=== PATIENT | male | born 1960 | race Caucasian/White ===

== ENCOUNTER 2017-08-03 08:35 | Day surgery (SDC) | payer MEDICAID ==
[~2017-08-03] VITALS: Ht 170.2 cm; Wt 65.0 kg
[~2017-08-03 08:35] MED LIST: ALB0.5UD IH; BISA-155 PO; DOCU100C40 PO; DULO-31 PO; GABA-532 PO; HYDR-3972 PO; HYDR50TA65 PO; INSU100V5 SQ; LIDO700A32 TOP; METF850T2 PO; METO-292 PO; MORP-64 PO; NYST15PO4 TP; OMEP-50 PO; SENN-93 PO; SPIIN INH; TEST200V10 SUBCUT; TIZA-248 PO; TRAZ-146 PO
[2017-08-03] MEDS ORDERED: MIDAZolam 5mg/5ml vial ONE (08:44)
[2017-08-03] MEDS ORDERED: fentaNYL/PF 50MCG/1 ML 2ML syringe ONE (08:44)
[2017-08-03] MEDS ORDERED: LIDOcaine Viscous 15ml cup ONE (08:45)
[2017-08-03 09:25] VITALS: BP 133/75
[2017-08-03 10:26] VITALS: BP 105/67
[2017-08-03 10:36] VITALS: BP 113/73
[2017-08-03 10:46] VITALS: BP 99/59
[2017-08-03 10:56] VITALS: BP 110/72
== END 2017-08-03 11:10 | disposition home or self-care (01) ==
LOC: GI LAB 08:35
PROVIDERS: ATTEND Internal Medicine Gastroenterology
DX: K22.70 Barrett's esophagus without dysplasia (principal); K44.9 Diaphragmatic hernia without obstruction or gangrene; K22.2 Esophageal obstruction; J44.9 Chronic obstructive pulmonary disease, unspecified; K21.9 Gastro-esophageal reflux disease without esophagitis; M19.90 Unspecified osteoarthritis, unspecified site; E11.9 Type 2 diabetes mellitus without complications; F32.9 Major depressive disorder, single episode, unspecified; G80.8 Other cerebral palsy; Z86.14 Personal history of Methicillin resistant Staphylococcus aureus infection; Z79.891 Long term (current) use of opiate analgesic; Z88.1 Allergy status to other antibiotic agents; Z87.891 Personal history of nicotine dependence; Z79.84 Long term (current) use of oral hypoglycemic drugs; Z90.49 Acquired absence of other specified parts of digestive tract; Z90.89 Acquired absence of other organs; Z79.899 Other long term (current) drug therapy; Z88.8 Allergy status to other drugs, medicaments and biological substances; Z98.890 Other specified postprocedural states
CPT/HCPCS: 43239; 43248; 99152; J2250; J3010; J7030; A4620; G0500

== ENCOUNTER 2017-12-22 06:31 | Day surgery (SDC) | payer MEDICAID ==
[~2017-12-22] VITALS: Ht 171.4 cm; Wt 61.8 kg
[~2017-12-22 06:31] MED LIST changes: +METF-437 PO; -METF850T2 PO; -TRAZ-146 PO; +TRAZ-219 PO
[2017-12-22] MEDS ORDERED: fentaNYL/PF 50MCG/1 ML 2ML syringe ONE (06:44)
[2017-12-22] MEDS ORDERED: MIDAZolam 5mg/5ml vial ONE (06:44)
[2017-12-22 06:45] VITALS: BP 121/84
[2017-12-22 08:52] VITALS: BP 130/68
[2017-12-22 09:02] VITALS: BP 126/85
[2017-12-22 09:12] VITALS: BP 123/68
[2017-12-22 09:22] VITALS: BP 113/59
[2017-12-22 09:32] VITALS: BP 121/60
== END 2017-12-22 09:50 | disposition home or self-care (01) ==
LOC: GI LAB 06:31
PROVIDERS: ATTEND Internal Medicine Gastroenterology
DX: D50.9 Iron deficiency anemia, unspecified (principal); G80.8 Other cerebral palsy; J44.9 Chronic obstructive pulmonary disease, unspecified; K21.9 Gastro-esophageal reflux disease without esophagitis; M19.90 Unspecified osteoarthritis, unspecified site; E11.9 Type 2 diabetes mellitus without complications; F10.21 Alcohol dependence, in remission; F32.9 Major depressive disorder, single episode, unspecified; F12.90 Cannabis use, unspecified, uncomplicated; I25.10 Atherosclerotic heart disease of native coronary artery without angina pectoris; F41.8 Other specified anxiety disorders; Z99.3 Dependence on wheelchair; Z87.891 Personal history of nicotine dependence; Z88.1 Allergy status to other antibiotic agents; Z90.49 Acquired absence of other specified parts of digestive tract; Z87.440 Personal history of urinary (tract) infections; Z87.442 Personal history of urinary calculi; Z99.81 Dependence on supplemental oxygen; Z79.4 Long term (current) use of insulin; Z79.84 Long term (current) use of oral hypoglycemic drugs; Z79.891 Long term (current) use of opiate analgesic; Z90.89 Acquired absence of other organs; Z86.14 Personal history of Methicillin resistant Staphylococcus aureus infection; Z79.899 Other long term (current) drug therapy; Z98.890 Other specified postprocedural states; Z88.8 Allergy status to other drugs, medicaments and biological substances; Z80.9 Family history of malignant neoplasm, unspecified; Z83.3 Family history of diabetes mellitus
CPT/HCPCS: 45378; 99152; 99153; J2250; J3010; J7030; A4620; G0500

== ENCOUNTER 2018-05-28 22:14 | Emergency (ER) | payer MEDICAID ==
[~2018-05-28] VITALS: Ht 170.2 cm; Wt 50.4 kg
[~2018-05-28 22:14] MED LIST changes: -ALB0.5UD IH; -METO-292 PO
[2018-05-29] MEDS ORDERED: ondansetron/PF 4mg/2ml inj IV ONE (00:45)
[2018-05-29] MEDS ORDERED: morphine 4 MG/ML inj SYRINge IV ONE ×2 (00:45→02:00)
[2018-05-29] MEDS ORDERED: normal saline 1000ml 1,000 ML IV ONE (00:45)
[2018-05-29 00:56] LABS: CLARITY,URINE CLEAR (Clear); COLOR,URINE YELLOW (Yellow); GLUCOSE, URINE 250 mg/dl (Neg); KETONES,URINE NEGATIVE (Neg); LEUKOCYTE ESTERASE ,URINE NEGATIVE (Neg); NITRITES, URINE NEGATIVE (Neg); OCCULT BLOOD,URINE NEGATIVE (Neg); PH,URINE 5.5 (4.8-8.0); PROTEIN,URINE NEGATIVE (Neg); UA COLLECTION TYPE VOIDED; UROBILINOGEN,URINE 0.2 E.U/dL (0.2-1.0)
[2018-05-29 01:39] VITALS: BP 128/92
[2018-05-29 01:42] LABS: BASOPHILS # (AUTO) 0.1 X10'3 (0-0.2); BASOPHILS % (AUTO) 0.8 % (0-1); EOSINOPHILS # (AUTO) 0.3 X10'3 (0-0.9); EOSINOPHILS % (AUTO) 3.7 % (0-6); HEMATOCRIT 49.5 % (42.0-52.0); HEMOGLOBIN 16.3 g/dl (14.0-17.9); LYMPHOCYTES # (AUTO) 1.4 X10'3 (1.1-4.8); LYMPHOCYTES % (AUTO) 17.1 % (21-51); MEAN CORPUSCULAR HEMOGLOBIN 31.3 PG (27.0-31.0); MEAN CORPUSCULAR VOLUME 94.9 FL (78-98); MEAN PLATELET VOLUME 10.6 FL (7.4-10.4); MONOCYTES # (AUTO) 0.6 X10'3 (0-0.9); MONOCYTES % (AUTO) 6.9 % (2-12); NEUTROPHILS # (AUTO) 5.9 X10'3 (1.8-7.7); NEUTROPHILS % (AUTO) 71.5 % (42-75); PLATELET COUNT 149 X10'3 (140-440); RED BLOOD COUNT 5.21 X10'6 (4.70-6.10); RED CELL DISTRIBUTION WIDTH 11.2 % (11.5-14.5); WHITE BLOOD COUNT 8.3 X10'3 (4.5-11.0)
--- NOTE | 2018-05-29 02:08 | NUR ---
PT INFORMED ME THAT HE RAN OUT OF HIS MORPHINE 15MG PO DAILY [address] BARRY
[2018-05-29 02:12] LABS: ALANINE AMINOTRANSFERASE 23 U/L (12-78); ALBUMIN 3.6 G/DL (3.4-5.0); ALKALINE PHOSPHATASE 57 IU/L (46-116); ANION GAP 10 (8-16); ASPARTATE AMINO TRANSFERASE 22 U/L (10-37); BILIRUBIN,TOTAL 0.6 MG/DL (0.1-1.0); BLOOD UREA NITROGEN 12 MG/DL (7-18); BUN/CREATININE RATIO 14.3 (5.4-32.0); CALCIUM 8.2 MG/DL (8.5-10.1); CHLORIDE 106 MMOL/L (99-107); CREATININE 0.84 MG/DL (0.60-1.10); GLUCOSE 90 MG/DL (70-104); LIPASE < 50 U/L (73-393); POTASSIUM 3.9 MMOL/L (3.5-5.1); SODIUM 141 MMOL/L (135-145); TOTAL CARBON DIOXIDE 24.7 MMOL/L (24-32); TOTAL PROTEIN 7.1 G/DL (6.4-8.2); eGFR > 90 ML/MIN
[2018-05-29] MEDS ORDERED: BISA-155 PO (02:22)
== END 2018-05-29 02:53 | disposition home or self-care (01) ==
LOC: ER 22:15
DX: R10.30 Lower abdominal pain, unspecified (principal); R10.2 Pelvic and perineal pain; R11.0 Nausea; I10 Essential (primary) hypertension; J44.9 Chronic obstructive pulmonary disease, unspecified; E11.9 Type 2 diabetes mellitus without complications; G89.29 Other chronic pain; F12.90 Cannabis use, unspecified, uncomplicated; Z90.49 Acquired absence of other specified parts of digestive tract; Z98.890 Other specified postprocedural states; Z88.8 Allergy status to other drugs, medicaments and biological substances; Z79.4 Long term (current) use of insulin; Z79.899 Other long term (current) drug therapy
CPT/HCPCS: 36415; 74176; 80053; 81003; 83690; 85025; 96374; 96375; 96376; 99284; J2270; J2405; J7030

== ENCOUNTER 2018-11-05 23:35 | Emergency (ER) | payer MEDICAID ==
[~2018-11-05] VITALS: Ht 170.2 cm; Wt 62.0 kg
[~2018-11-05 23:35] MED LIST changes: -TIZA-248 PO; +TIZA4TAB5 PO
[2018-11-06 00:12] LABS: PARTIAL THROMBOPLASTIN TIME 31 SECONDS (22-32)
[2018-11-06 00:13] LABS: BASOPHILS % (AUTO) 0.6 % (0-1); EOSINOPHILS # (AUTO) 0.4 X10'3 (0-0.9); EOSINOPHILS % (AUTO) 5.4 % (0-6); HEMATOCRIT 49.9 % (42.0-52.0); HEMOGLOBIN 17.2 g/dl (14.0-17.9); LYMPHOCYTES # (AUTO) 1.6 X10'3 (1.1-4.8); LYMPHOCYTES % (AUTO) 20.2 % (21-51); MEAN CORPUSCULAR HEMOGLOBIN 31.7 PG (27.0-31.0); MEAN CORPUSCULAR HGB CONC 34.5 g/dL (33.0-36.5); MEAN CORPUSCULAR VOLUME 91.8 FL (78-98); MEAN PLATELET VOLUME 9.6 FL (7.4-10.4); MONOCYTES # (AUTO) 0.8 X10'3 (0-0.9); MONOCYTES % (AUTO) 10.5 % (2-12); NEUTROPHILS % (AUTO) 63.3 % (42-75); PLATELET COUNT 201 X10'3 (140-440); RED BLOOD COUNT 5.44 X10'6 (4.70-6.10); WHITE BLOOD COUNT 7.9 X10'3 (4.5-11.0)
[2018-11-06 00:15] LABS: ALANINE AMINOTRANSFERASE 28 U/L (12-78); ALBUMIN 3.7 G/DL (3.4-5.0); ALBUMIN/GLOBULIN RATIO 0.9 (1.1-1.5); ALKALINE PHOSPHATASE 85 IU/L (46-116); ANION GAP 5 (8-16); ASPARTATE AMINO TRANSFERASE 16 U/L (10-37); BILIRUBIN,TOTAL 0.5 MG/DL (0.1-1.0); BLOOD UREA NITROGEN 15 MG/DL (7-18); BUN/CREATININE RATIO 14.9 (5.4-32.0); CALCIUM 9.2 MG/DL (8.5-10.1); CHLORIDE 102 MMOL/L (99-107); CREATININE 1.01 MG/DL (0.60-1.10); POTASSIUM 4.5 MMOL/L (3.5-5.1); SODIUM 136 MMOL/L (135-145); TOTAL CARBON DIOXIDE 28.9 MMOL/L (24-32); TOTAL PROTEIN 7.8 G/DL (6.4-8.2); eGFR 75 ML/MIN
[2018-11-06 00:26] LABS: GLUCOSE 221 MG/DL (70-104)
[2018-11-06] MEDS ORDERED: aspirin 81mg tab.chew PO ONE (01:35)
[2018-11-06] MEDS ORDERED: morphine 4 MG/ML inj SYRINge IV ONE (01:35)
[2018-11-06 03:50] VITALS: BP 119/92
== END 2018-11-06 04:07 | disposition home or self-care (01) ==
LOC: ER 23:36
DX: R07.89 Other chest pain (principal); R06.02 Shortness of breath; R50.9 Fever, unspecified; R05 Cough; I10 Essential (primary) hypertension; J44.9 Chronic obstructive pulmonary disease, unspecified; E11.9 Type 2 diabetes mellitus without complications; G89.29 Other chronic pain; F41.9 Anxiety disorder, unspecified; F32.9 Major depressive disorder, single episode, unspecified; F10.99 Alcohol use, unspecified with unspecified alcohol-induced disorder; F12.90 Cannabis use, unspecified, uncomplicated; Z90.49 Acquired absence of other specified parts of digestive tract; Z98.890 Other specified postprocedural states; Z87.891 Personal history of nicotine dependence; Z88.1 Allergy status to other antibiotic agents; Z88.8 Allergy status to other drugs, medicaments and biological substances; Z79.4 Long term (current) use of insulin; Z79.84 Long term (current) use of oral hypoglycemic drugs; Z79.899 Other long term (current) drug therapy; Y90.9 Presence of alcohol in blood, level not specified
CPT/HCPCS: 36415; 71045; 80053; 83605; 84484; 85025; 85610; 85730; 87040; 93005; 96374; 99284; J2270

== ENCOUNTER 2019-12-09 01:16 | Emergency (ER) | payer MEDICAID ==
[~2019-12-09] VITALS: Ht 170.2 cm; Wt 59.1 kg
[~2019-12-09 01:16] MED LIST changes: -BISA-155 PO; +CITA-311 PO; +CLOT15CR73 TP; +FERR325T28 PO; +FLO0.4C PO; -HYDR-3972 PO; -INSU100V5 SQ; +LORA10CA PO; -METF-437 PO; +METF500T PO; +MIRT15TA PO; -MORP-64 PO; +MORP-92 PO; +NEOM10DR45 LEFT EAR; +NEOM10DR45 RIGHT EAR; +OXYB5TAB16 PO; +PROP10TA10 PO; -TRAZ-219 PO; +TRAZ-256 PO
[2019-12-09] MEDS ORDERED: ketorolac tromethamine 15mg/ml inj. IV ONE (01:25)
[2019-12-09] MEDS ORDERED: normal saline 1000ML IV soln IVB ONE (01:25)
[2019-12-09] MEDS ORDERED: ondansetron/PF 4mg/2ml inj IV ONE (01:25)
[2019-12-09] MEDS: morphine 4 MG/ML inj SYRINge IV PRN ×2 (01:41→02:38)
[2019-12-09 02:21] LABS: EOSINOPHILS # (AUTO) 0.5 X10'3 (0-0.9); HEMOGLOBIN 16.7 g/dl (14.0-17.9); LYMPHOCYTES # (AUTO) 1.7 X10'3 (1.1-4.8); MONOCYTES # (AUTO) 0.7 X10'3 (0-0.9); MONOCYTES % (AUTO) 10.9 % (2-12); NEUTROPHILS # (AUTO) 3.5 X10'3 (1.8-7.7); WHITE BLOOD COUNT 6.4 X10'3 (4.5-11.0)
[2019-12-09 02:22] LABS: BASOPHILS % (AUTO) 0.6 % (0-1); EOSINOPHILS % (AUTO) 7.6 % (0-6); HEMATOCRIT 47.7 % (42.0-52.0); LYMPHOCYTES % (AUTO) 26.6 % (21-51); MEAN CORPUSCULAR HEMOGLOBIN 32.1 PG (27.0-31.0); MEAN CORPUSCULAR HGB CONC 35.1 g/dL (33.0-36.5); MEAN CORPUSCULAR VOLUME 91.4 FL (78-98); MEAN PLATELET VOLUME 10.1 FL (7.4-10.4); NEUTROPHILS % (AUTO) 54.3 % (42-75); PLATELET COUNT 152 X10'3 (140-440); RED BLOOD COUNT 5.22 X10'6 (4.70-6.10); RED CELL DISTRIBUTION WIDTH 13.3 % (11.5-14.5)
[2019-12-09 02:30] LABS: ALANINE AMINOTRANSFERASE 20 U/L (12-78); ALBUMIN 3.5 G/DL (3.4-5.0); ALKALINE PHOSPHATASE 46 IU/L (46-116); ANION GAP 5 (8-16); ASPARTATE AMINO TRANSFERASE 15 U/L (10-37); BILIRUBIN,TOTAL 0.5 MG/DL (0.1-1.0); BLOOD UREA NITROGEN 14 MG/DL (7-18); BUN/CREATININE RATIO 12.1 (5.4-32.0); CALCIUM 8.4 MG/DL (8.5-10.1); CHLORIDE 102 MMOL/L (99-107); CREATININE 1.16 MG/DL (0.60-1.10); GLUCOSE 88 MG/DL (70-104); LIPASE < 50 U/L (73-393); POTASSIUM 4.1 MMOL/L (3.5-5.1); SODIUM 139 MMOL/L (135-145); TOTAL CARBON DIOXIDE 31.8 MMOL/L (24-32); eGFR 64 ML/MIN
[2019-12-09 02:34] LABS: CLARITY,URINE CLEAR (Clear); COLOR,URINE YELLOW (Yellow); GLUCOSE, URINE NEGATIVE (Neg); KETONES,URINE NEGATIVE (Neg); LEUKOCYTE ESTERASE ,URINE NEGATIVE (Neg); NITRITES, URINE NEGATIVE (Neg); OCCULT BLOOD,URINE SMALL (Neg); PH,URINE 5.5 (4.8-8.0); PROTEIN,URINE NEGATIVE (Neg)
[2019-12-09 02:38] LABS: UA COLLECTION TYPE CLN CATCH MIDSTREAM
[2019-12-09 02:39] LABS: BACTERIA,URINE FEW /HPF (Neg); SQUAMOUS EPITHELIAL CELL,UR FEW /LPF (FEW); WBC,URINE NONE SEEN /HPF (0-4)
--- NOTE | 2019-12-09 02:40 | NUR ---
PAIN 8 GAVE ANOTHER DOSE OF MORPHINE, WILL CONTINUE TO MONITOR
--- NOTE | 2019-12-09 03:06 | NUR ---
CAREGIVER JANINA [phone]
[2019-12-09] MEDS ORDERED: OXYC-134 PO (03:21)
[2019-12-09] MEDS ORDERED: FLO0.4C PO (03:21)
[2019-12-09 03:41] VITALS: BP 136/87
== END 2019-12-09 03:47 | disposition home or self-care (01) ==
LOC: ER 01:17
DX: N20.0 Calculus of kidney (principal); J44.9 Chronic obstructive pulmonary disease, unspecified; E11.9 Type 2 diabetes mellitus without complications; G89.29 Other chronic pain; F41.9 Anxiety disorder, unspecified; F31.9 Bipolar disorder, unspecified; F12.90 Cannabis use, unspecified, uncomplicated; Z90.49 Acquired absence of other specified parts of digestive tract; Z98.890 Other specified postprocedural states; Z88.8 Allergy status to other drugs, medicaments and biological substances; Z79.899 Other long term (current) drug therapy
CPT/HCPCS: 36415; 74176; 80053; 81001; 83690; 85025; 96361; 96374; 96375; 96376; 99284; J1885; J2270; J2405; J7030

== ENCOUNTER 2020-02-03 22:28 | Emergency (ER) | payer MEDICAID ==
[~2020-02-03] VITALS: Ht 170.2 cm; Wt 59.1 kg
[~2020-02-03 22:28] MED LIST changes: +OXYC-134 PO
[2020-02-03] MEDS ORDERED: normal saline 1000ML IV soln IVB ONE (22:35)
[2020-02-03] MEDS ORDERED: ondansetron/PF 4mg/2ml inj IV ONE (22:35)
[2020-02-03] MEDS ORDERED: morphine 4 MG/ML inj SYRINge IV PRN (22:35)
[2020-02-03 23:21] LABS: BASOPHILS # (AUTO) 0.1 X10'3 (0-0.2); BASOPHILS % (AUTO) 0.9 % (0-1); EOSINOPHILS # (AUTO) 0.5 X10'3 (0-0.9); EOSINOPHILS % (AUTO) 6.4 % (0-6); HEMOGLOBIN 16.9 g/dl (14.0-17.9); LYMPHOCYTES % (AUTO) 12.6 % (21-51); MEAN CORPUSCULAR HEMOGLOBIN 31.6 PG (27.0-31.0); MEAN CORPUSCULAR HGB CONC 34.4 g/dL (33.0-36.5); MEAN CORPUSCULAR VOLUME 91.9 FL (78-98); MEAN PLATELET VOLUME 9.9 FL (7.4-10.4); MONOCYTES # (AUTO) 0.8 X10'3 (0-0.9); MONOCYTES % (AUTO) 9.2 % (2-12); NEUTROPHILS # (AUTO) 5.9 X10'3 (1.8-7.7); NEUTROPHILS % (AUTO) 70.9 % (42-75); PLATELET COUNT 187 X10'3 (140-440); RED BLOOD COUNT 5.34 X10'6 (4.70-6.10); RED CELL DISTRIBUTION WIDTH 13.4 % (11.5-14.5); WHITE BLOOD COUNT 8.3 X10'3 (4.5-11.0)
[2020-02-03 23:32] LABS: ALANINE AMINOTRANSFERASE 20 U/L (12-78); ALBUMIN 3.8 G/DL (3.4-5.0); ALKALINE PHOSPHATASE 55 IU/L (46-116); ANION GAP 7 (8-16); ASPARTATE AMINO TRANSFERASE 20 U/L (10-37); BILIRUBIN,TOTAL 0.5 MG/DL (0.1-1.0); BLOOD UREA NITROGEN 18 MG/DL (7-18); BUN/CREATININE RATIO 18.8 (5.4-32.0); CALCIUM 9.1 MG/DL (8.5-10.1); CHLORIDE 100 MMOL/L (99-107); CREATININE 0.96 MG/DL (0.60-1.10); GLUCOSE 139 MG/DL (70-104); LIPASE < 50 U/L (73-393); POTASSIUM 3.9 MMOL/L (3.5-5.1); SODIUM 137 MMOL/L (135-145); TOTAL CARBON DIOXIDE 30.3 MMOL/L (24-32); TOTAL PROTEIN 7.6 G/DL (6.4-8.2); eGFR 80 ML/MIN
[2020-02-03] MEDS ORDERED: ketorolac trometh. 30mg/ml inj. IV ONE (23:40)
[2020-02-03] MEDS ORDERED: morphine 4 MG/ML inj SYRINge IV ONE (23:40)
[2020-02-03] MEDS ORDERED: HYDROcodone/acetaminophen 10/325mg tab PO ONE (23:40)
[2020-02-04 00:20] LABS: CLARITY,URINE CLEAR (Clear); COLOR,URINE YELLOW (Yellow); GLUCOSE, URINE NEGATIVE (Neg); KETONES,URINE NEGATIVE (Neg); LEUKOCYTE ESTERASE ,URINE NEGATIVE (Neg); NITRITES, URINE NEGATIVE (Neg); OCCULT BLOOD,URINE LARGE (Neg); PROTEIN,URINE NEGATIVE (Neg)
[2020-02-04 00:39] LABS: UA COLLECTION TYPE URINAL
[2020-02-04 00:40] LABS: WBC,URINE NONE SEEN /HPF (0-4)
[2020-02-04 00:41] LABS: BACTERIA,URINE NONE SEEN /HPF (Neg); SQUAMOUS EPITHELIAL CELL,UR FEW /LPF (FEW)
[2020-02-04 01:03] VITALS: BP 119/83
== END 2020-02-04 01:52 | disposition home or self-care (01) ==
LOC: ER 22:29
DX: N23 Unspecified renal colic (principal); R10.9 Unspecified abdominal pain; R11.0 Nausea; I10 Essential (primary) hypertension; J44.9 Chronic obstructive pulmonary disease, unspecified; E11.9 Type 2 diabetes mellitus without complications; G89.29 Other chronic pain; F41.9 Anxiety disorder, unspecified; F12.90 Cannabis use, unspecified, uncomplicated; Z90.49 Acquired absence of other specified parts of digestive tract; Z98.890 Other specified postprocedural states; Z88.8 Allergy status to other drugs, medicaments and biological substances; Z79.899 Other long term (current) drug therapy; Z79.2 Long term (current) use of antibiotics
CPT/HCPCS: 36415; 80053; 81001; 83690; 85025; 96361; 96374; 96375; 96376; 99284; J1885; J2270; J2405; J7030; 81003

== ENCOUNTER 2020-06-01 12:28 | Emergency (ER) | payer MEDICAID ==
[~2020-06-01] VITALS: Ht 170.2 cm; Wt 53.7 kg
[~2020-06-01 12:28] MED LIST changes: +MIRT-116 PO; -MIRT15TA PO
[2020-06-01 12:32] VITALS: BP 110/74
[2020-06-01] MEDS ORDERED: MORP15TA PO (14:07)
== END 2020-06-01 14:45 | disposition home or self-care (01) ==
LOC: ER 12:28
DX: M54.9 Dorsalgia, unspecified (principal); Z76.0 Encounter for issue of repeat prescription; I10 Essential (primary) hypertension; J44.9 Chronic obstructive pulmonary disease, unspecified; E11.9 Type 2 diabetes mellitus without complications; Z87.01 Personal history of pneumonia (recurrent); Z90.49 Acquired absence of other specified parts of digestive tract; Z85.9 Personal history of malignant neoplasm, unspecified; Z72.89 Other problems related to lifestyle; F12.90 Cannabis use, unspecified, uncomplicated; Z88.1 Allergy status to other antibiotic agents; Z88.8 Allergy status to other drugs, medicaments and biological substances; Z79.899 Other long term (current) drug therapy
CPT/HCPCS: 99281

== ENCOUNTER 2020-06-29 05:18 | Emergency (ER) | payer MEDICAID ==
[~2020-06-29] VITALS: Ht 170.2 cm; Wt 57.3 kg
--- NOTE | 2020-06-29 06:22 | NUR ---
patient on bed awaiting to be seen by ed provider.Call light within reach.
[2020-06-29] MEDS ORDERED: ketorolac trometh. 30mg/ml inj. IM ONE (06:35)
[2020-06-29] MEDS ORDERED: morphine 10mg/ml inj. IM ONE (06:35)
[2020-06-29 06:49] VITALS: BP 135/77
== END 2020-06-29 07:22 | disposition home or self-care (01) ==
LOC: ER 05:18
DX: M54.5 Low back pain (principal); G89.29 Other chronic pain; I10 Essential (primary) hypertension; J44.9 Chronic obstructive pulmonary disease, unspecified; E11.9 Type 2 diabetes mellitus without complications; F41.9 Anxiety disorder, unspecified; F32.9 Major depressive disorder, single episode, unspecified; Z90.49 Acquired absence of other specified parts of digestive tract; Z98.890 Other specified postprocedural states; F12.90 Cannabis use, unspecified, uncomplicated; Z72.89 Other problems related to lifestyle; Z88.8 Allergy status to other drugs, medicaments and biological substances; Z88.1 Allergy status to other antibiotic agents; Z79.899 Other long term (current) drug therapy; Z79.84 Long term (current) use of oral hypoglycemic drugs
CPT/HCPCS: 96372; 99284; J1885; J2270

== ENCOUNTER 2020-08-11 23:51 | Emergency (ER) | payer MEDICAID ==
[~2020-08-11] VITALS: Ht 170.2 cm; Wt 57.2 kg
[2020-08-12] MEDS ORDERED: ketorolac trometh. 30mg/ml inj. IM ONE
[2020-08-12] MEDS ORDERED: morphine 4 MG/ML inj SYRINge IM ONE
--- NOTE | 2020-08-12 00:46 | NUR ---
Patient states he "needs an xray", MD Anaya informed of patient's concern. Caregiver at bedside with patient.
[2020-08-12 01:05] VITALS: BP 136/87
== END 2020-08-12 01:06 | disposition home or self-care (01) ==
LOC: ER 23:52
DX: M54.5 Low back pain (principal); I10 Essential (primary) hypertension; J44.9 Chronic obstructive pulmonary disease, unspecified; G89.29 Other chronic pain; E11.9 Type 2 diabetes mellitus without complications; F41.9 Anxiety disorder, unspecified; F32.9 Major depressive disorder, single episode, unspecified; F12.90 Cannabis use, unspecified, uncomplicated; Z90.49 Acquired absence of other specified parts of digestive tract; Z98.890 Other specified postprocedural states; Z72.89 Other problems related to lifestyle; Z88.8 Allergy status to other drugs, medicaments and biological substances; Z88.1 Allergy status to other antibiotic agents; Z79.899 Other long term (current) drug therapy; Z79.84 Long term (current) use of oral hypoglycemic drugs
CPT/HCPCS: 96372; 99284; J1885; J2270

== ENCOUNTER 2020-08-18 18:35 | Inpatient (IN) | payer MEDICAID ==
[~2020-08-18] VITALS: Ht 170.2 cm; Wt 56.8 kg
[2020-08-18] MEDS ORDERED: ipratropium/albuterol 3ml nebule NEB ONE (18:40)
[2020-08-18] MEDS ORDERED: albuterol 2.5 MG/3 ML nebule NEB ONE (20:00)
[2020-08-18 20:12] LABS: BASOPHILS % (AUTO) 0.1 % (0-1); EOSINOPHILS # (AUTO) 0.1 X10'3 (0-0.9); EOSINOPHILS % (AUTO) 0.9 % (0-6); HEMATOCRIT 47.8 % (42.0-52.0); HEMOGLOBIN 16.8 g/dl (14.0-17.9); LYMPHOCYTES # (AUTO) 0.6 X10'3 (1.1-4.8); LYMPHOCYTES % (AUTO) 4.3 % (21-51); MEAN CORPUSCULAR HEMOGLOBIN 30.7 PG (27.0-31.0); MEAN CORPUSCULAR HGB CONC 35.1 g/dL (33.0-36.5); MEAN CORPUSCULAR VOLUME 87.6 FL (78-98); MEAN PLATELET VOLUME 10.3 FL (7.4-10.4); MONOCYTES # (AUTO) 0.9 X10'3 (0-0.9); MONOCYTES % (AUTO) 6.2 % (2-12); NEUTROPHILS # (AUTO) 12.4 X10'3 (1.8-7.7); NEUTROPHILS % (AUTO) 88.5 % (42-75); PLATELET COUNT 206 X10'3 (140-440); RED BLOOD COUNT 5.46 X10'6 (4.70-6.10); RED CELL DISTRIBUTION WIDTH 13.2 % (11.5-14.5)
[2020-08-18 20:18] LABS: PARTIAL THROMBOPLASTIN TIME 29 SECONDS (22-32)
[2020-08-18] MEDS ORDERED: normal saline 1000ML IV soln IVB ONE (20:20)
[2020-08-18] MEDS ORDERED: morphine 4 MG/ML inj SYRINge IV ONE (20:20)
[2020-08-18] MEDS ORDERED: LORazepam 2 mg/ml vial IV ONE ×2 (20:20→20:45)
[2020-08-18] MEDS ORDERED: METF-950 PO (20:23)
[2020-08-18 20:27] LABS: ALANINE AMINOTRANSFERASE 32 U/L (12-78); ALBUMIN 2.9 G/DL (3.4-5.0); ALBUMIN/GLOBULIN RATIO 0.8 (1.1-1.5); ALKALINE PHOSPHATASE 69 IU/L (46-116); ANION GAP 12 (8-16); ASPARTATE AMINO TRANSFERASE 44 U/L (10-37); BILIRUBIN,TOTAL 1.5 MG/DL (0.1-1.0); BLOOD UREA NITROGEN 15 MG/DL (7-18); BUN/CREATININE RATIO 16.3 (5.4-32.0); CALCIUM 7.2 MG/DL (8.5-10.1); CHLORIDE 95 MMOL/L (99-107); CREATININE 0.92 MG/DL (0.60-1.10); GLUCOSE 135 MG/DL (70-104); MAGNESIUM 2.3 MG/DL (1.5-2.4); SODIUM 134 MMOL/L (135-145); TOTAL PROTEIN 6.7 G/DL (6.4-8.2); eGFR 83 ML/MIN
[2020-08-18 20:31] LABS: POTASSIUM 2.2 MMOL/L (3.5-5.1)
[2020-08-18] MEDS ORDERED: OXYC5TAB2 PO (20:31)
[2020-08-18 20:33] LABS: LIPASE < 50 U/L (73-393)
[2020-08-18] MEDS ORDERED: potassium Cl 10 mEq/100mL bag IV ONE ×5 (20:50→23:45)
[2020-08-18] MEDS ORDERED: iohexol 300mg/ml 100ml inj. ONE (20:56)
[2020-08-18] MEDS ORDERED: piperacillin/tazo 3.375gm/50ml 50 ML IV ONE (23:40)
[2020-08-18] MEDS ORDERED: potassium Cl 10 mEq/100mL bag IV SCH (23:45)
[2020-08-19] MEDS ORDERED: morphine 4 MG/ML inj SYRINge IV ONE (00:25)
[2020-08-19] MEDS ORDERED: potassium Cl 40MEQ/1/2NS 520ml 520 ML IV PRN (00:45)
[2020-08-19] MEDS: potassium Cl 20mEq in NS 1,000 ML IV SCH ×3 (00:45→20:31)
[2020-08-19 01:00] LABS: CLARITY,URINE SLIGHTLY CLOUDY (Clear); COLOR,URINE YELLOW (Yellow); GLUCOSE, URINE NEGATIVE (Neg); KETONES,URINE >=80 mg/dl (Neg); LEUKOCYTE ESTERASE ,URINE NEGATIVE (Neg); NITRITES, URINE NEGATIVE (Neg); OCCULT BLOOD,URINE LARGE (Neg); PROTEIN,URINE 30 mg/dl (Neg); UROBILINOGEN,URINE 0.2 E.U/dL (0.2-1.0)
[2020-08-19 01:05] LABS: UA COLLECTION TYPE FOLEY CATH
[2020-08-19 01:07] LABS: FINE GRANULAR CAST 0-3 /LPF (NEGATIVE)
[2020-08-19 01:09] LABS: BACTERIA,URINE 3+ /HPF (Neg); MUCUS STRANDS NONE SEEN /LPF (Neg); RBC,URINE 20-50 /HPF (0-2); SQUAMOUS EPITHELIAL CELL,UR NONE SEEN /LPF (FEW); WBC,URINE 0-4 /HPF (0-4)
[2020-08-19] MEDS: morphine 2 MG/ML inj. syringe IV PRN ×4 (06:08→20:18)
[2020-08-19] MEDS: LORazepam 2 mg/ml vial IV PRN ×2 (06:33→19:20)
[2020-08-19] MEDS: K and/or MAG REPLACEMENT MC SCH ×2 (08:00→20:00)
--- NOTE | 2020-08-19 09:11 | NUR ---
PT HAS BM. CLEAN PT AND APPLY PAD. CAREGIVER AT BEDSIDE. PT ASKING FOR PAIN MEDS.
[2020-08-19 09:13] LABS: ALBUMIN 2.1 G/DL (3.4-5.0); ANION GAP 10 (8-16); BLOOD UREA NITROGEN 11 MG/DL (7-18); BUN/CREATININE RATIO 16.4 (5.4-32.0); CHLORIDE 106 MMOL/L (99-107); CREATININE 0.67 MG/DL (0.60-1.10); GLUCOSE 105 MG/DL (70-104); SODIUM 142 MMOL/L (135-145); TOTAL CARBON DIOXIDE 26.5 MMOL/L (24-32); eGFR > 90 ML/MIN
[2020-08-19] MEDS: heparin, porcine 5000 units/ml vial SQ SCH ×2 (09:19→19:21)
[2020-08-19] MEDS ORDERED: LURA40TA3 PO (09:57)
[2020-08-19 10:13] LABS: POTASSIUM 2.5 MMOL/L (3.5-5.1)
[2020-08-19] MEDS: potassium Cl 40MEQ/1/2NS 520ml 520 ML IV PRN ×2 (11:17→15:39)
--- NOTE | 2020-08-19 11:44 | NUR ---
pt moved to a hospital bed.
--- NOTE | 2020-08-19 11:54 | NUR ---
PT TRANSFERRED ONTO A HOSPITAL BED AND KELLY MUSTAFA REMOVED.
--- NOTE | 2020-08-19 16:36 | NUR ---
PT HAS A DIRTY DIAPER, REMOVE AND CLEAN PT AND THEN PLACE BED DICKSON UNDER PT. CAREGIVER AT BEDSIDE.
[2020-08-19 18:29] LABS: HEMOGLOBIN A1C 5.8 % (4.5-6.2)
--- NOTE | 2020-08-19 18:30 | NUR ---
Patient in room ED 11. I have received report from MAYNOR SMALLWOOD and had the opportunity to ask questions and assume patient care.
[2020-08-19 18:40] VITALS: BP 125/75
[2020-08-19] MEDS: ondansetron/PF 4mg/2ml inj IV PRN (20:18)
[2020-08-19 21:50] VITALS: BP 102/54
--- NOTE | 2020-08-19 23:24 | NUR ---
DR. BRYANT NOTIFIED OF CRITICAL K 2.4. ADVISED TO CONTINUE GIVING IV POTASSIUM PER PROTOCOL.
[2020-08-19] MEDS: potassium CL 10mEq/100ml bag 100 ML IV SCH (23:45)
[2020-08-20] MEDS: morphine 2 MG/ML inj. syringe IV PRN ×4 (00:43→19:36)
[2020-08-20] MEDS: potassium CL 10mEq/100ml bag 100 ML IV SCH ×3 (00:43→03:22)
[2020-08-20] MEDS: LORazepam 2 mg/ml vial IV PRN ×2 (01:19→14:44)
--- NOTE | 2020-08-20 04:09 | NUR ---
PT HAD 6SEC BURST OF SVT HR 180. NOTIFIED. BP104/58 HR 108 NOW.
[2020-08-20 06:00] VITALS: BP 108/67
[2020-08-20 06:02] LABS: BASOPHILS % (AUTO) 0.4 % (0-1); EOSINOPHILS # (AUTO) 0.1 X10'3 (0-0.9); EOSINOPHILS % (AUTO) 1.4 % (0-6); HEMATOCRIT 37.1 % (42.0-52.0); HEMOGLOBIN 13.3 g/dl (14.0-17.9); LYMPHOCYTES # (AUTO) 0.5 X10'3 (1.1-4.8); LYMPHOCYTES % (AUTO) 5.3 % (21-51); MEAN CORPUSCULAR HGB CONC 35.8 g/dL (33.0-36.5); MEAN CORPUSCULAR VOLUME 86.5 FL (78-98); MEAN PLATELET VOLUME 10.2 FL (7.4-10.4); MONOCYTES # (AUTO) 0.8 X10'3 (0-0.9); MONOCYTES % (AUTO) 7.6 % (2-12); NEUTROPHILS # (AUTO) 8.5 X10'3 (1.8-7.7); NEUTROPHILS % (AUTO) 85.3 % (42-75); PLATELET COUNT 153 X10'3 (140-440); RED BLOOD COUNT 4.29 X10'6 (4.70-6.10); RED CELL DISTRIBUTION WIDTH 13.3 % (11.5-14.5)
[2020-08-20 06:28] LABS: ALANINE AMINOTRANSFERASE 18 U/L (12-78); ALBUMIN/GLOBULIN RATIO 0.7 (1.1-1.5); ALKALINE PHOSPHATASE 50 IU/L (46-116); ANION GAP 10 (8-16); ASPARTATE AMINO TRANSFERASE 29 U/L (10-37); BILIRUBIN,TOTAL 1.1 MG/DL (0.1-1.0); BLOOD UREA NITROGEN 6 MG/DL (7-18); BUN/CREATININE RATIO 11.5 (5.4-32.0); CALCIUM 6.5 MG/DL (8.5-10.1); CHLORIDE 107 MMOL/L (99-107); CREATININE 0.52 MG/DL (0.60-1.10); GLUCOSE 96 MG/DL (70-104); MAGNESIUM 2.1 MG/DL (1.5-2.4); SODIUM 143 MMOL/L (135-145); TOTAL PROTEIN 4.8 G/DL (6.4-8.2); eGFR > 90 ML/MIN
--- NOTE | 2020-08-20 06:29 | NUR ---
Problems reprioritized. Patient report given, questions answered & plan of care reviewed with MAYNOR HECTOR.
[2020-08-20 06:30] LABS: POTASSIUM 2.7 MMOL/L (3.5-5.1)
[2020-08-20 06:31] LABS: PHOSPHORUS 0.4 MG/DL (2.3-4.5)
--- NOTE | 2020-08-20 06:41 | NUR ---
Patient in room ORTHO 4016. I have received report from MAYNOR OSEI and had the opportunity to ask questions and assume patient care.
--- NOTE | 2020-08-20 06:42 | NUR ---
CRITICAL POTASSIUM 2.7, PHOSPHORUS 0.4, CALLED DR ORDERS TO REPLACE POTASSIUM PER PROTOCOL, DEFER TO DAY DR ABOUT PHOSPHORUS
[2020-08-20] MEDS: potassium Cl 20mEq in NS 1,000 ML IV SCH ×3 (06:45→19:42)
[2020-08-20] MEDS ORDERED: potassium phosphate inj 30 MMOL in normal saline 500ml IV soln 500 ML IV ONE (07:40)
[2020-08-20] MEDS: K and/or MAG REPLACEMENT MC SCH ×2 (08:00→20:00)
--- NOTE | 2020-08-20 09:16 | NUR ---
DM Consult: Pt A1C 5.8 not appropriate for DM ed at this time. Addendum: 08/20/20 at [address] Amended: Links added.
[2020-08-20] MEDS: heparin, porcine 5000 units/ml vial SQ SCH ×2 (09:33→19:21)
[2020-08-20 12:15] LABS: C DIFF ANTIGEN NEGATIVE (NEGATIVE); C DIFF SPECIMEN=DIARRHEA? ACCEPTABLE; C DIFFICILE TOXINS A&B NEGATIVE (Neg)
[2020-08-20] MEDS: ondansetron/PF 4mg/2ml inj IV PRN (12:39)
[2020-08-20] MEDS ORDERED: docusate sod 100mg capsule PO PRN (16:10)
[2020-08-20] MEDS: potassium Cl 40MEQ/1/2NS 520ml 520 ML IV PRN (16:19)
[2020-08-20 18:00] VITALS: BP 132/85
--- NOTE | 2020-08-20 18:32 | NUR ---
Problems reprioritized. Patient report given, questions answered & plan of care reviewed with MAYNOR STONE.
[2020-08-20] MEDS: lurasidone 60mg tablet PO SCH (19:21)
[2020-08-20] MEDS: pantoprazole 40mg Tablet.DR PO SCH (19:21)
[2020-08-20] MEDS: oxybutynin 5mg tablet PO SCH (19:21)
[2020-08-20] MEDS: loperamide 2mg capsule PO PRN (19:21)
[2020-08-20] MEDS: tizanidine 4mg tablet PO SCH (19:25)
[2020-08-20 20:00] VITALS: BP 99/60
[2020-08-20] MEDS: propranolol 10mg tablet PO SCH (20:00)
[2020-08-20] MEDS: ipratropium 0.5 MG/2.5ML nebule IH SCH (20:02)
[2020-08-20] MEDS: gabapentin 300mg capsule PO SCH (20:45)
[2020-08-20] MEDS: tamsulosin 0.4mg capsule PO SCH (20:45)
[2020-08-20] MEDS ORDERED: potassium Cl 20 mEq SR tablet PO PRN (20:55)
[2020-08-20] MEDS: traZODone 50mg tablet PO SCH (21:01)
[2020-08-20] MEDS: potassium Cl 20 mEq SR tablet PO PRN (21:02)
[2020-08-20 22:00] VITALS: BP 99/60
[2020-08-21] MEDS: potassium Cl 20 mEq SR tablet PO PRN (01:11)
[2020-08-21] MEDS: ipratropium 0.5 MG/2.5ML nebule IH SCH ×4 (02:00→20:15)
[2020-08-21] MEDS: morphine 2 MG/ML inj. syringe IV PRN ×3 (04:50→18:49)
[2020-08-21] MEDS: potassium Cl 20mEq in NS 1,000 ML IV SCH ×2 (04:53→07:17)
[2020-08-21] MEDS ORDERED: acetaminophen 650mg rectal suppository RC PRN (05:45)
--- NOTE | 2020-08-21 06:27 | NUR ---
Problems reprioritized. Patient report given, questions answered & plan of care reviewed with MAYNOR ONEILL.
[2020-08-21 06:44] LABS: BASOPHILS % (AUTO) 0.2 % (0-1); EOSINOPHILS # (AUTO) 0.2 X10'3 (0-0.9); EOSINOPHILS % (AUTO) 1.8 % (0-6); HEMATOCRIT 39.4 % (42.0-52.0); LYMPHOCYTES # (AUTO) 0.6 X10'3 (1.1-4.8); LYMPHOCYTES % (AUTO) 7.3 % (21-51); MEAN CORPUSCULAR HEMOGLOBIN 31.2 PG (27.0-31.0); MEAN CORPUSCULAR HGB CONC 35.7 g/dL (33.0-36.5); MEAN CORPUSCULAR VOLUME 87.4 FL (78-98); MEAN PLATELET VOLUME 9.7 FL (7.4-10.4); MONOCYTES % (AUTO) 11.4 % (2-12); NEUTROPHILS % (AUTO) 79.3 % (42-75); PLATELET COUNT 157 X10'3 (140-440); RED CELL DISTRIBUTION WIDTH 13.8 % (11.5-14.5); WHITE BLOOD COUNT 8.8 X10'3 (4.5-11.0)
[2020-08-21 06:53] LABS: ALANINE AMINOTRANSFERASE 24 U/L (12-78); ALBUMIN 2.1 G/DL (3.4-5.0); ALBUMIN/GLOBULIN RATIO 0.7 (1.1-1.5); ALKALINE PHOSPHATASE 59 IU/L (46-116); ANION GAP 9 (8-16); ASPARTATE AMINO TRANSFERASE 35 U/L (10-37); BILIRUBIN,TOTAL 1.1 MG/DL (0.1-1.0); BLOOD UREA NITROGEN 4 MG/DL (7-18); BUN/CREATININE RATIO 6.8 (5.4-32.0); CALCIUM 6.2 MG/DL (8.5-10.1); CHLORIDE 109 MMOL/L (99-107); CREATININE 0.59 MG/DL (0.60-1.10); GLUCOSE 105 MG/DL (70-104); POTASSIUM 3.7 MMOL/L (3.5-5.1); SODIUM 145 MMOL/L (135-145); TOTAL CARBON DIOXIDE 27.4 MMOL/L (24-32); TOTAL PROTEIN 5.2 G/DL (6.4-8.2); eGFR > 90 ML/MIN
[2020-08-21] MEDS: LORazepam 2 mg/ml vial IV PRN (07:36)
[2020-08-21] MEDS: K and/or MAG REPLACEMENT MC SCH ×2 (08:00→20:00)
[2020-08-21] MEDS ORDERED: CefTRIAXone/D5W-Rocephin 1gm 50 ML IV SCH (08:00)
[2020-08-21] MEDS ORDERED: vancomycin/NS 1 GM ADD-VANTAGE 250 ML IV SCH (09:00)
[2020-08-21] MEDS: duloxetine 30mg CAPSULE.DR PO SCH (09:30)
[2020-08-21] MEDS: loratadine 10mg tablet PO SCH (09:31)
[2020-08-21] MEDS: morphine ER 15mg tablet PO SCH (09:31)
[2020-08-21] MEDS: tizanidine 4mg tablet PO SCH ×2 (09:31→20:00)
[2020-08-21] MEDS: gabapentin 300mg capsule PO SCH ×3 (09:32→20:01)
[2020-08-21] MEDS: pantoprazole 40mg Tablet.DR PO SCH ×2 (09:32→20:00)
[2020-08-21] MEDS: propranolol 10mg tablet PO SCH ×2 (09:33→20:00)
[2020-08-21] MEDS: oxybutynin 5mg tablet PO SCH ×2 (09:33→20:00)
[2020-08-21] MEDS: heparin, porcine 5000 units/ml vial SQ SCH ×2 (09:35→20:01)
[2020-08-21 09:46] VITALS: BP 128/74
[2020-08-21 09:47] VITALS: BP_SYST 124; BP_SYST 134; BP_DIAS 77
[2020-08-21] MEDS ORDERED: Neutra Phos packet PO PRN (10:30)
[2020-08-21] MEDS ORDERED: sodium phosphate inj. 15 MMOL in dextrose 5%-water 250 ML IV PRN (10:30)
[2020-08-21] MEDS ORDERED: sodium phosphate inj. 30 MMOL in dextrose 5%-water 250 ML IV PRN (10:30)
[2020-08-21 11:12] VITALS: BP 92/42
--- NOTE | 2020-08-21 12:08 | NUR ---
CRITICAL LAB VALUE PHOS 0.[address] GRIGGS FOR REPLACEMENT ORDERS.
[2020-08-21] MEDS: POTASSIUM PHOSHATE inj. 30 MMOL in NORMAL SALINE 500ml IV.SOLN IV SCH (13:42)
[2020-08-21] MEDS: amox tr/potassium clavulanate 875/125mg TAB PO SCH (17:22)
[2020-08-21] MEDS: lurasidone 60mg tablet PO SCH (17:22)
[2020-08-21 18:00] VITALS: BP 106/62
--- NOTE | 2020-08-21 18:09 | NUR ---
Problems reprioritized. Patient report given, questions answered & plan of care reviewed with Sandra MCGUIRE.
--- NOTE | 2020-08-21 18:30 | NUR ---
Patient in room ORTHO 4016. I have received report from MAYNOR ONEILL and had the opportunity to ask questions and assume patient care.
[2020-08-21] MEDS: tamsulosin 0.4mg capsule PO SCH (19:59)
[2020-08-21 20:00] VITALS: BP_SYST 111; BP_SYST 117; BP_DIAS 63; BP_DIAS 67
[2020-08-21] MEDS: traZODone 50mg tablet PO SCH (20:00)
[2020-08-21] MEDS: loperamide 2mg capsule PO PRN (20:54)
[2020-08-21 22:00] VITALS: BP 117/67
--- NOTE | 2020-08-21 23:36 | NUR ---
Student documentation: I have reviewed all interventions, assessments performed and documented by Marcin Quiros. Student Medication Administration: For this medication-pass time frame, all medication were reviewed, dispensed, administered and documented per hospital policy by Marcin Quiros.
[2020-08-22] MEDS: potassium Cl 20mEq in NS 1,000 ML IV SCH ×2 (00:12→10:50)
[2020-08-22] MEDS: morphine 2 MG/ML inj. syringe IV PRN ×3 (02:23→20:54)
[2020-08-22] MEDS: ipratropium 0.5 MG/2.5ML nebule IH SCH ×4 (03:25→20:34)
[2020-08-22] MEDS: LORazepam 2 mg/ml vial IV PRN (03:42)
[2020-08-22 06:00] VITALS: BP 124/66
[2020-08-22 06:27] LABS: BASOPHILS % (AUTO) 0.3 % (0-1); EOSINOPHILS # (AUTO) 0.2 X10'3 (0-0.9); EOSINOPHILS % (AUTO) 3.6 % (0-6); HEMATOCRIT 36.8 % (42.0-52.0); HEMOGLOBIN 12.9 g/dl (14.0-17.9); LYMPHOCYTES # (AUTO) 0.7 X10'3 (1.1-4.8); LYMPHOCYTES % (AUTO) 10.3 % (21-51); MEAN CORPUSCULAR HEMOGLOBIN 30.7 PG (27.0-31.0); MEAN CORPUSCULAR HGB CONC 34.9 g/dL (33.0-36.5); MEAN CORPUSCULAR VOLUME 88.1 FL (78-98); MEAN PLATELET VOLUME 9.6 FL (7.4-10.4); MONOCYTES # (AUTO) 0.6 X10'3 (0-0.9); MONOCYTES % (AUTO) 9.7 % (2-12); NEUTROPHILS % (AUTO) 76.1 % (42-75); PLATELET COUNT 154 X10'3 (140-440); RED BLOOD COUNT 4.18 X10'6 (4.70-6.10); RED CELL DISTRIBUTION WIDTH 13.8 % (11.5-14.5); WHITE BLOOD COUNT 6.5 X10'3 (4.5-11.0)
[2020-08-22 06:29] LABS: ALANINE AMINOTRANSFERASE 21 U/L (12-78); ALBUMIN/GLOBULIN RATIO 0.7 (1.1-1.5); ALKALINE PHOSPHATASE 47 IU/L (46-116); ANION GAP 4 (8-16); ASPARTATE AMINO TRANSFERASE 32 U/L (10-37); BLOOD UREA NITROGEN 6 MG/DL (7-18); BUN/CREATININE RATIO 11.3 (5.4-32.0); CALCIUM 6.3 MG/DL (8.5-10.1); CHLORIDE 109 MMOL/L (99-107); CREATININE 0.53 MG/DL (0.60-1.10); GLUCOSE 74 MG/DL (70-104); POTASSIUM 4.2 MMOL/L (3.5-5.1); SODIUM 143 MMOL/L (135-145); TOTAL CARBON DIOXIDE 30.1 MMOL/L (24-32); eGFR > 90 ML/MIN
[2020-08-22 06:34] LABS: PHOSPHORUS 0.8 MG/DL (2.3-4.5)
--- NOTE | 2020-08-22 06:35 | NUR ---
Problems reprioritized. Patient report given, questions answered & plan of care reviewed with MAYNOR ABREU.
--- NOTE | 2020-08-22 06:37 | NUR ---
Patient in room ORTHO 4016. I have received report from Robert MCGUIRE and had the opportunity to ask questions and assume patient care.
--- NOTE | 2020-08-22 07:05 | NUR ---
PAGER ID: [phone] MESSAGE: Siomara MCGUIRE [id number] RE: Kumar Bermeo [phone]. Critical lab, phos 0.8. Will replace @ 0800. Thank you
[2020-08-22] MEDS: gabapentin 300mg capsule PO SCH ×3 (07:33→20:52)
[2020-08-22] MEDS: duloxetine 30mg CAPSULE.DR PO SCH (07:35)
[2020-08-22] MEDS: oxybutynin 5mg tablet PO SCH ×2 (07:35→20:53)
[2020-08-22] MEDS: pantoprazole 40mg Tablet.DR PO SCH ×2 (07:35→20:53)
[2020-08-22] MEDS: morphine ER 15mg tablet PO SCH (07:36)
[2020-08-22] MEDS: loratadine 10mg tablet PO SCH (07:36)
[2020-08-22] MEDS: heparin, porcine 5000 units/ml vial SQ SCH ×2 (07:38→20:53)
[2020-08-22] MEDS: amox tr/potassium clavulanate 875/125mg TAB PO SCH ×2 (07:50→17:15)
[2020-08-22] MEDS: POTASSIUM PHOSHATE inj. 30 MMOL in NORMAL SALINE 500ml IV.SOLN IV SCH (07:51)
[2020-08-22] MEDS: K and/or MAG REPLACEMENT MC SCH ×2 (08:00→20:00)
[2020-08-22] MEDS: tizanidine 4mg tablet PO SCH ×2 (08:21→20:53)
[2020-08-22] MEDS: propranolol 10mg tablet PO SCH ×2 (08:21→20:54)
--- NOTE | 2020-08-22 08:21 | NUR ---
BM this morning per patient, did not witness or view Addendum: 08/22/20 at 0897 by Erin LIM Amended: Links added.
[2020-08-22 09:03] VITALS: BP 107/64
[2020-08-22 09:26] VITALS: BP_SYST 94; BP_SYST 99; BP_DIAS 58; BP_DIAS 60
[2020-08-22] MEDS: oxyCODONE IR 5mg (immed. release) tablet PO PRN (10:51)
--- NOTE | 2020-08-22 11:57 | NUR ---
Patient in room ORTHO 4016. I have received report from alexa and had the opportunity to ask questions and assume patient care.
--- NOTE | 2020-08-22 15:18 | NUR ---
Problems reprioritized. Patient report given, questions answered & plan of care reviewed with Errol Coles.
[2020-08-22 18:00] VITALS: BP 121/70
--- NOTE | 2020-08-22 18:34 | NUR ---
Patient in room ORTHO 4016. I have received report from Errol MCGUIRE and had the opportunity to ask questions and assume patient care.
[2020-08-22] MEDS: lurasidone 60mg tablet PO SCH (18:53)
[2020-08-22] MEDS: hydrOXYzine 25 MG tablet PO PRN (18:54)
[2020-08-22] MEDS ORDERED: VANCOMYCIN LEVEL IV ONE (20:30)
[2020-08-22] MEDS: traZODone 50mg tablet PO SCH (20:53)
[2020-08-22] MEDS: tamsulosin 0.4mg capsule PO SCH (20:53)
[2020-08-22 20:55] VITALS: BP 105/86
[2020-08-22 22:00] VITALS: BP_SYST 80; BP_SYST 96; BP_DIAS 46; BP_DIAS 48
--- NOTE | 2020-08-22 22:00 | NUR ---
Pts. blood pressure decreased at 80/48 HR 77. Not appropriate to do orthostatic blood pressure right now. Will continue to monitor. Addendum: 08/23/20 at 0201 by Melida Pinto RN Amended: Links added.
[2020-08-23] VITALS (8 sets, daily range): BP systolic 80–144; BP diastolic 50–90
[2020-08-23] MEDS: potassium Cl 20mEq in NS 1,000 ML IV SCH (01:08)
[2020-08-23] MEDS: ipratropium 0.5 MG/2.5ML nebule IH SCH ×4 (02:44→20:41)
[2020-08-23] MEDS: morphine 2 MG/ML inj. syringe IV PRN (04:55)
--- NOTE | 2020-08-23 06:26 | NUR ---
Problems reprioritized. Patient report given, questions answered & plan of care reviewed with Debra MCGUIRE.
--- NOTE | 2020-08-23 06:38 | NUR ---
I have received report from Noc RN and had the opportunity to ask questions and assume patient care.
[2020-08-23] MEDS: amox tr/potassium clavulanate 875/125mg TAB PO SCH (07:54)
[2020-08-23] MEDS: heparin, porcine 5000 units/ml vial SQ SCH ×2 (07:54→19:40)
[2020-08-23 07:55] LABS: BASOPHILS % (AUTO) 0.7 % (0-1); EOSINOPHILS # (AUTO) 0.2 X10'3 (0-0.9); EOSINOPHILS % (AUTO) 3.4 % (0-6); HEMATOCRIT 42.2 % (42.0-52.0); HEMOGLOBIN 14.7 g/dl (14.0-17.9); LYMPHOCYTES # (AUTO) 0.7 X10'3 (1.1-4.8); LYMPHOCYTES % (AUTO) 9.5 % (21-51); MEAN CORPUSCULAR HEMOGLOBIN 30.9 PG (27.0-31.0); MEAN CORPUSCULAR HGB CONC 34.8 g/dL (33.0-36.5); MEAN CORPUSCULAR VOLUME 88.8 FL (78-98); MEAN PLATELET VOLUME 8.9 FL (7.4-10.4); MONOCYTES # (AUTO) 0.5 X10'3 (0-0.9); MONOCYTES % (AUTO) 7.7 % (2-12); NEUTROPHILS # (AUTO) 5.6 X10'3 (1.8-7.7); NEUTROPHILS % (AUTO) 78.7 % (42-75); PLATELET COUNT 157 X10'3 (140-440); RED BLOOD COUNT 4.75 X10'6 (4.70-6.10); RED CELL DISTRIBUTION WIDTH 14.1 % (11.5-14.5); WHITE BLOOD COUNT 7.1 X10'3 (4.5-11.0)
[2020-08-23] MEDS: oxybutynin 5mg tablet PO SCH ×2 (07:55→19:38)
[2020-08-23] MEDS: duloxetine 30mg CAPSULE.DR PO SCH (07:55)
[2020-08-23] MEDS: pantoprazole 40mg Tablet.DR PO SCH ×2 (07:55→19:38)
[2020-08-23] MEDS: tizanidine 4mg tablet PO SCH ×2 (07:55→19:39)
[2020-08-23] MEDS: propranolol 10mg tablet PO SCH ×2 (07:55→19:38)
[2020-08-23] MEDS: loratadine 10mg tablet PO SCH (07:55)
[2020-08-23] MEDS: morphine ER 15mg tablet PO SCH (07:55)
[2020-08-23] MEDS: gabapentin 300mg capsule PO SCH ×3 (07:56→21:23)
[2020-08-23] MEDS: K and/or MAG REPLACEMENT MC SCH ×2 (08:00→19:29)
[2020-08-23 08:11] LABS: ALANINE AMINOTRANSFERASE 27 U/L (12-78); ALBUMIN 2.3 G/DL (3.4-5.0); ALBUMIN/GLOBULIN RATIO 0.7 (1.1-1.5); ALKALINE PHOSPHATASE 51 IU/L (46-116); ANION GAP 5 (8-16); ASPARTATE AMINO TRANSFERASE 34 U/L (10-37); BLOOD UREA NITROGEN 4 MG/DL (7-18); BUN/CREATININE RATIO 6.9 (5.4-32.0); CALCIUM 6.6 MG/DL (8.5-10.1); CHLORIDE 107 MMOL/L (99-107); CREATININE 0.58 MG/DL (0.60-1.10); GLUCOSE 72 MG/DL (70-104); POTASSIUM 4.2 MMOL/L (3.5-5.1); SODIUM 142 MMOL/L (135-145); TOTAL CARBON DIOXIDE 29.7 MMOL/L (24-32); TOTAL PROTEIN 5.7 G/DL (6.4-8.2); eGFR > 90 ML/MIN
[2020-08-23 08:15] LABS: PHOSPHORUS 1.2 MG/DL (2.3-4.5)
--- NOTE | 2020-08-23 08:25 | NUR ---
Spoke with Dr. Rojas concerning patients Phos of 1.2. Replacements are already ordered. Patient will not be DC'd today with this critical level of Phos. Fluids have been DC'd.
[2020-08-23 08:38] LABS: TOTAL CELLS COUNTED 100
[2020-08-23 08:40] LABS: PLATELET ESTIMATE NORMAL; POLYCHROMASIA 1+; TOXIC GRANULATION 1+; TOXIC VACUOLATION FEW
[2020-08-23] MEDS ORDERED: FOSFOMYCIN TROMETHAMINE 3 GM PACKET PO ONE (08:45)
[2020-08-23] MEDS: POTASSIUM PHOSHATE inj. 30 MMOL in NORMAL SALINE 500ml IV.SOLN IV SCH (08:49)
[2020-08-23] MEDS: sulfamethoxazole/trimethoprim DS (800/160mg) tablet PO SCH ×2 (09:58→19:39)
[2020-08-23] MEDS: hydrOXYzine 25 MG tablet PO PRN ×2 (12:39→21:23)
[2020-08-23] MEDS: oxyCODONE IR 5mg (immed. release) tablet PO PRN (14:37)
--- NOTE | 2020-08-23 18:15 | NUR ---
Problems reprioritized. Patient report given, questions answered & plan of care reviewed with Melida MCGUIRE.
--- NOTE | 2020-08-23 18:40 | NUR ---
Patient in room ORTHO 4016. I have received report from Debra MCGUIRE and had the opportunity to ask questions and assume patient care.
[2020-08-23] MEDS: lactobacillus rhamnosus 10,000 MMU CELLS/CAPSULE PO SCH (19:39)
[2020-08-23] MEDS: lurasidone 60mg tablet PO SCH (19:39)
[2020-08-23] MEDS: tamsulosin 0.4mg capsule PO SCH (21:22)
[2020-08-23] MEDS: traZODone 50mg tablet PO SCH (21:22)
[2020-08-24] MEDS: ipratropium 0.5 MG/2.5ML nebule IH SCH ×3 (02:43→20:10)
[2020-08-24] MEDS: oxyCODONE IR 5mg (immed. release) tablet PO PRN ×2 (03:03→15:51)
[2020-08-24 06:00] VITALS: BP 91/61
--- NOTE | 2020-08-24 06:19 | NUR ---
Problems reprioritized. Patient report given, questions answered & plan of care reviewed with Merle MCGUIRE.
--- NOTE | 2020-08-24 06:43 | NUR ---
Patient in room ORTHO 4016. I have received report from Melida and had the opportunity to ask questions and assume patient care.
[2020-08-24 06:50] LABS: BASOPHILS % (AUTO) 0.5 % (0-1); EOSINOPHILS # (AUTO) 0.2 X10'3 (0-0.9); EOSINOPHILS % (AUTO) 2.9 % (0-6); HEMATOCRIT 39.7 % (42.0-52.0); HEMOGLOBIN 13.8 g/dl (14.0-17.9); LYMPHOCYTES # (AUTO) 0.8 X10'3 (1.1-4.8); LYMPHOCYTES % (AUTO) 11.3 % (21-51); MEAN CORPUSCULAR HEMOGLOBIN 31.2 PG (27.0-31.0); MEAN CORPUSCULAR HGB CONC 34.6 g/dL (33.0-36.5); MEAN CORPUSCULAR VOLUME 89.9 FL (78-98); MONOCYTES # (AUTO) 0.7 X10'3 (0-0.9); MONOCYTES % (AUTO) 9.6 % (2-12); NEUTROPHILS # (AUTO) 5.3 X10'3 (1.8-7.7); NEUTROPHILS % (AUTO) 75.7 % (42-75); PLATELET COUNT 170 X10'3 (140-440); RED BLOOD COUNT 4.42 X10'6 (4.70-6.10); RED CELL DISTRIBUTION WIDTH 14.3 % (11.5-14.5)
[2020-08-24 07:00] LABS: ALANINE AMINOTRANSFERASE 25 U/L (12-78); ALBUMIN/GLOBULIN RATIO 0.6 (1.1-1.5); ALKALINE PHOSPHATASE 45 IU/L (46-116); ANION GAP 3 (8-16); ASPARTATE AMINO TRANSFERASE 30 U/L (10-37); BILIRUBIN,TOTAL 0.7 MG/DL (0.1-1.0); BLOOD UREA NITROGEN 4 MG/DL (7-18); BUN/CREATININE RATIO 6.8 (5.4-32.0); CHLORIDE 108 MMOL/L (99-107); CREATININE 0.59 MG/DL (0.60-1.10); GLUCOSE 74 MG/DL (70-104); PHOSPHORUS 1.9 MG/DL (2.3-4.5); POTASSIUM 4.2 MMOL/L (3.5-5.1); SODIUM 140 MMOL/L (135-145); TOTAL CARBON DIOXIDE 29.2 MMOL/L (24-32); TOTAL PROTEIN 5.1 G/DL (6.4-8.2); eGFR > 90 ML/MIN
[2020-08-24] MEDS: propranolol 10mg tablet PO SCH ×2 (07:19→19:48)
[2020-08-24] MEDS: lactobacillus rhamnosus 10,000 MMU CELLS/CAPSULE PO SCH ×2 (07:19→19:43)
[2020-08-24] MEDS: gabapentin 300mg capsule PO SCH ×3 (07:19→21:32)
[2020-08-24] MEDS: pantoprazole 40mg Tablet.DR PO SCH ×2 (07:19→19:43)
[2020-08-24] MEDS: duloxetine 30mg CAPSULE.DR PO SCH (07:19)
[2020-08-24] MEDS: oxybutynin 5mg tablet PO SCH ×2 (07:19→19:43)
[2020-08-24] MEDS: sulfamethoxazole/trimethoprim DS (800/160mg) tablet PO SCH ×2 (07:19→19:43)
[2020-08-24] MEDS: loratadine 10mg tablet PO SCH (07:19)
[2020-08-24] MEDS: tizanidine 4mg tablet PO SCH ×2 (07:19→19:43)
[2020-08-24] MEDS: morphine ER 15mg tablet PO SCH (07:19)
[2020-08-24] MEDS: heparin, porcine 5000 units/ml vial SQ SCH ×2 (07:20→19:43)
[2020-08-24 07:36] LABS: PLATELET ESTIMATE NORMAL; POLYCHROMASIA 1+; TOTAL CELLS COUNTED 100
[2020-08-24] MEDS: K and/or MAG REPLACEMENT MC SCH ×2 (08:00→19:39)
[2020-08-24 10:00] VITALS: BP 99/44
[2020-08-24] MEDS ORDERED: potassium phosphate inj 30 MMOL in normal saline 500ml IV soln 500 ML IV ONE (10:30)
[2020-08-24] MEDS: hydrOXYzine 25 MG tablet PO PRN (13:13)
[2020-08-24] MEDS: lurasidone 60mg tablet PO SCH (15:51)
--- NOTE | 2020-08-24 15:58 | NUR ---
Initial: Pt presented with SOB and admit for ileus with bladder distention, improved following NGT placement per H&P. Pt with hypokalemia and hypophosphatemia at least partially due to diarrhea per MD note. Pt receiving routine replacement and K now WNL. Stool negative for C.diff though stool cx with Salmonella species per MD notes. Pt s/p BSS with ST recs pureed food with thin liquids and needs to take small bites and sips d/t difficulty chewing. Pt with average 25-50% PO intake of meals not meeting estimated nutrient needs. Per MD note pt states that his abdominal discomfort has improved and he is eating better. Recommend Ensure Enlive BIDBD to optimize PO intake and assist with meeting estimated nutrient needs, to be sent pending MD verification in EMR. D/w dietary to send a milkshake BIDLD while ONS pending to optimize PO intake and provide additional phosphorus with meals. LBM 5/6. Will continue to follow closely. Recommendations: 1) Continue pureed diet with thin liquids per ST recs 2) Ensure Enlive BIDBD, pending MD verification in EMR 3) Milkshake BIDLD 4) Bowel care per rx 5) Scaled weight this admit; routine scaled weights thereafter Addendum: 08/24/20 at [address] Amended: Links added.
[2020-08-24 18:00] VITALS: BP 106/69
--- NOTE | 2020-08-24 18:18 | NUR ---
Problems reprioritized. Patient report given, questions answered & plan of care reviewed with
--- NOTE | 2020-08-24 18:30 | NUR ---
Patient in room ORTHO 4016. I have received report from Merle MCGUIRE and had the opportunity to ask questions and assume patient care.
[2020-08-24 19:48] VITALS: BP 95/61
[2020-08-24] MEDS: tamsulosin 0.4mg capsule PO SCH (21:33)
[2020-08-24] MEDS: traZODone 50mg tablet PO SCH (21:33)
[2020-08-24 22:00] VITALS: BP 87/48
[2020-08-25 02:00] VITALS: BP 107/52
[2020-08-25] MEDS: ipratropium 0.5 MG/2.5ML nebule IH SCH ×2 (02:20→08:00)
[2020-08-25] MEDS: oxyCODONE IR 5mg (immed. release) tablet PO PRN (04:48)
--- NOTE | 2020-08-25 06:13 | NUR ---
Problems reprioritized. Patient report given, questions answered & plan of care reviewed with Gina MCGUIRE.
--- NOTE | 2020-08-25 06:14 | NUR ---
Patient in room ORTHO 4016. I have received report from Margot MCGUIRE and had the opportunity to ask questions and assume patient care. Addendum: 08/25/20 at 0615 by Gina Lopez RN MAYNOR Steele
[2020-08-25 06:43] VITALS: BP 88/56
[2020-08-25 07:36] LABS: BASOPHILS % (AUTO) 0.8 % (0-1); EOSINOPHILS # (AUTO) 0.2 X10'3 (0-0.9); HEMATOCRIT 38.6 % (42.0-52.0); HEMOGLOBIN 13.1 g/dl (14.0-17.9); LYMPHOCYTES # (AUTO) 1.1 X10'3 (1.1-4.8); LYMPHOCYTES % (AUTO) 19.5 % (21-51); MEAN CORPUSCULAR HEMOGLOBIN 30.5 PG (27.0-31.0); MEAN CORPUSCULAR HGB CONC 33.9 g/dL (33.0-36.5); MEAN CORPUSCULAR VOLUME 89.9 FL (78-98); MEAN PLATELET VOLUME 9.1 FL (7.4-10.4); MONOCYTES # (AUTO) 0.7 X10'3 (0-0.9); MONOCYTES % (AUTO) 12.6 % (2-12); NEUTROPHILS # (AUTO) 3.6 X10'3 (1.8-7.7); NEUTROPHILS % (AUTO) 64.1 % (42-75); PLATELET COUNT 175 X10'3 (140-440); RED BLOOD COUNT 4.29 X10'6 (4.70-6.10); RED CELL DISTRIBUTION WIDTH 13.8 % (11.5-14.5); WHITE BLOOD COUNT 5.6 X10'3 (4.5-11.0)
[2020-08-25 07:56] LABS: ALANINE AMINOTRANSFERASE 22 U/L (12-78); ALBUMIN 2.1 G/DL (3.4-5.0); ALBUMIN/GLOBULIN RATIO 0.7 (1.1-1.5); ALKALINE PHOSPHATASE 46 IU/L (46-116); ANION GAP 3 (8-16); ASPARTATE AMINO TRANSFERASE 23 U/L (10-37); BILIRUBIN,TOTAL 0.6 MG/DL (0.1-1.0); BLOOD UREA NITROGEN 4 MG/DL (7-18); BUN/CREATININE RATIO 6.2 (5.4-32.0); CALCIUM 7.4 MG/DL (8.5-10.1); CHLORIDE 107 MMOL/L (99-107); CREATININE 0.65 MG/DL (0.60-1.10); GLUCOSE 85 MG/DL (70-104); POTASSIUM 5.2 MMOL/L (3.5-5.1); SODIUM 140 MMOL/L (135-145); TOTAL PROTEIN 5.2 G/DL (6.4-8.2); eGFR > 90 ML/MIN
[2020-08-25] MEDS: propranolol 10mg tablet PO SCH (08:00)
[2020-08-25] MEDS: K and/or MAG REPLACEMENT MC SCH (08:00)
[2020-08-25] MEDS: loratadine 10mg tablet PO SCH (09:01)
[2020-08-25] MEDS: gabapentin 300mg capsule PO SCH ×2 (09:01→13:52)
[2020-08-25] MEDS: pantoprazole 40mg Tablet.DR PO SCH (09:01)
[2020-08-25] MEDS: lactobacillus rhamnosus 10,000 MMU CELLS/CAPSULE PO SCH (09:01)
[2020-08-25] MEDS: duloxetine 30mg CAPSULE.DR PO SCH (09:01)
[2020-08-25] MEDS: hydrOXYzine 25 MG tablet PO PRN (09:01)
[2020-08-25] MEDS: oxybutynin 5mg tablet PO SCH (09:02)
[2020-08-25] MEDS: sulfamethoxazole/trimethoprim DS (800/160mg) tablet PO SCH (09:02)
[2020-08-25] MEDS: morphine ER 15mg tablet PO SCH (09:02)
[2020-08-25] MEDS: tizanidine 4mg tablet PO SCH (09:02)
[2020-08-25] MEDS: heparin, porcine 5000 units/ml vial SQ SCH (09:03)
[2020-08-25] MEDS ORDERED: NEUPHOSK PO (12:16)
[2020-08-25] MEDS ORDERED: SULF1TAB45 PO (12:33)
[2020-08-25 13:29] VITALS: BP 109/62
--- NOTE | 2020-08-25 13:37 | NUR ---
PAGER ID: [phone] MESSAGE: [phone] Celia, he has a dennis for retention do you want me to send him back to his long term with it or take it out? thanks charles caro 1870
--- NOTE | 2020-08-25 14:09 | NUR ---
Simpson removed, waiting to see if patient spontaneously voids or is still retaining urine. DC instructions given to both patient and the caregiver. Verbalized understanding.
== END 2020-08-25 14:55 | disposition home or self-care (01) | DRG 248 ==
LOC: ER 18:35 → ED HOLD 08-19 00:41 → ORTHO 4S 08-19 18:20
PROVIDERS: ADMIT Internal Medicine; ATTEND Internal Medicine
PROC: 0D9670Z Drainage of Stomach with Drainage Device, Via Natural or Artificial Opening (ICD-10-PCS; principal; 2020-08-18)
PROC: BW211ZZ Computerized Tomography (CT Scan) of Abdomen and Pelvis using Low Osmolar Contrast (ICD-10-PCS; 2020-08-18)
DX: A02.0 Salmonella enteritis (principal); E43 Unspecified severe protein-calorie malnutrition; J18.9 Pneumonia, unspecified organism; E83.39 Other disorders of phosphorus metabolism; F11.20 Opioid dependence, uncomplicated; N25.81 Secondary hyperparathyroidism of renal origin; B95.2 Enterococcus as the cause of diseases classified elsewhere; E11.9 Type 2 diabetes mellitus without complications; E83.51 Hypocalcemia; E87.6 Hypokalemia; G89.29 Other chronic pain; I10 Essential (primary) hypertension; J44.0 Chronic obstructive pulmonary disease with (acute) lower respiratory infection; N32.89 Other specified disorders of bladder; N39.0 Urinary tract infection, site not specified; F12.90 Cannabis use, unspecified, uncomplicated; N40.1 Benign prostatic hyperplasia with lower urinary tract symptoms; R33.8 Other retention of urine; F32.9 Major depressive disorder, single episode, unspecified; G47.00 Insomnia, unspecified; F41.9 Anxiety disorder, unspecified; K21.9 Gastro-esophageal reflux disease without esophagitis; Z79.84 Long term (current) use of oral hypoglycemic drugs; Z79.899 Other long term (current) drug therapy; Z87.442 Personal history of urinary calculi; Z87.891 Personal history of nicotine dependence; Z90.411 Acquired partial absence of pancreas; Z90.49 Acquired absence of other specified parts of digestive tract; Z68.1 Body mass index [BMI] 19.9 or less, adult; Z88.8 Allergy status to other drugs, medicaments and biological substances
CPT/HCPCS: 36415; 71045; 74018; 74177; 80048; 80053; 81001; 82652; 82948; 83036; 83605; 83690; 83735; 83880; 83970; 84100; 84132; 84145; 84484; 85007; 85025; 85610; 85730; 86885; 86900; 86901; 87040; 87045; 87046; 87077; 87081; 87088; 87186; 87324; 87449; 92508; 92616; 93005; 94640; 94760; 96374; 96375; 97116; 97161; 97530; 99285; G0378; J0696; J1644; J2060; J2270; J2405; J2543; J3480; J7030; J7040; Q0177; Q9967

== ENCOUNTER 2020-08-25 20:08 | Emergency (ER) | payer MEDICAID ==
[~2020-08-25] VITALS: Ht 170.2 cm; Wt 50.0 kg
[~2020-08-25 20:08] MED LIST changes: -CITA-311 PO; -CLOT15CR73 TP; -FERR325T28 PO; -LIDO700A32 TOP; +LURA40TA3 PO; +METF-950 PO; -METF500T PO; -MIRT-116 PO; -NEOM10DR45 LEFT EAR; -NEOM10DR45 RIGHT EAR; +NEUPHOSK PO; -NYST15PO4 TP; -OXYC-134 PO; +OXYC5TAB2 PO; -SENN-93 PO; +SULF1TAB45 PO
[2020-08-25] MEDS ORDERED: propranolol 40mg tablet PO STA (22:33)
[2020-08-25] MEDS ORDERED: morphine ER 15mg tablet PO ONE (22:35)
[2020-08-25] MEDS ORDERED: gabapentin 300mg capsule PO ONE (22:35)
[2020-08-25 23:19] LABS: BASOPHILS % (AUTO) 0.6 % (0-1); EOSINOPHILS # (AUTO) 0.1 X10'3 (0-0.9); HEMATOCRIT 40.9 % (42.0-52.0); HEMOGLOBIN 13.9 g/dl (14.0-17.9); LYMPHOCYTES # (AUTO) 1.1 X10'3 (1.1-4.8); LYMPHOCYTES % (AUTO) 15.7 % (21-51); MEAN CORPUSCULAR HEMOGLOBIN 30.5 PG (27.0-31.0); MEAN CORPUSCULAR HGB CONC 34.1 g/dL (33.0-36.5); MEAN CORPUSCULAR VOLUME 89.6 FL (78-98); MONOCYTES # (AUTO) 0.8 X10'3 (0-0.9); MONOCYTES % (AUTO) 10.7 % (2-12); NEUTROPHILS # (AUTO) 5.2 X10'3 (1.8-7.7); PLATELET COUNT 196 X10'3 (140-440); RED BLOOD COUNT 4.57 X10'6 (4.70-6.10); WHITE BLOOD COUNT 7.2 X10'3 (4.5-11.0)
[2020-08-25 23:21] LABS: D-DIMER 0.64 MG/L FEU (0-0.50)
[2020-08-25 23:23] LABS: ALANINE AMINOTRANSFERASE 27 U/L (12-78); ALBUMIN 2.5 G/DL (3.4-5.0); ALBUMIN/GLOBULIN RATIO 0.7 (1.1-1.5); ALKALINE PHOSPHATASE 59 IU/L (46-116); ANION GAP 6 (8-16); ASPARTATE AMINO TRANSFERASE 30 U/L (10-37); BILIRUBIN,TOTAL 0.7 MG/DL (0.1-1.0); BLOOD UREA NITROGEN 5 MG/DL (7-18); BUN/CREATININE RATIO 6.5 (5.4-32.0); CALCIUM 7.9 MG/DL (8.5-10.1); CHLORIDE 105 MMOL/L (99-107); CREATININE 0.77 MG/DL (0.60-1.10); GLUCOSE 96 MG/DL (70-104); POTASSIUM 4.4 MMOL/L (3.5-5.1); SODIUM 138 MMOL/L (135-145); TOTAL CARBON DIOXIDE 27.1 MMOL/L (24-32); eGFR > 90 ML/MIN
[2020-08-25] MEDS ORDERED: iohexol 350MG/ML 100ml bottle IV ONE (23:53)
[2020-08-26] MEDS ORDERED: morphine IR (immed. release) 30mg tablet PO STA (01:04)
[2020-08-26 01:56] VITALS: BP 131/77
== END 2020-08-26 02:02 | disposition home or self-care (01) ==
LOC: ER 20:08
DX: R60.0 Localized edema (principal); R53.1 Weakness; R19.7 Diarrhea, unspecified; R06.02 Shortness of breath; I10 Essential (primary) hypertension; E11.9 Type 2 diabetes mellitus without complications; J44.9 Chronic obstructive pulmonary disease, unspecified; G89.29 Other chronic pain; F12.90 Cannabis use, unspecified, uncomplicated; Z87.891 Personal history of nicotine dependence; Z88.1 Allergy status to other antibiotic agents; Z88.8 Allergy status to other drugs, medicaments and biological substances; Z79.899 Other long term (current) drug therapy; Z90.49 Acquired absence of other specified parts of digestive tract
CPT/HCPCS: 36415; 71045; 71275; 80053; 83880; 84484; 85025; 85379; 93005; 99285; Q9967

== ENCOUNTER 2020-09-04 09:58 | Emergency (ER) | payer MEDICAID ==
[~2020-09-04] VITALS: Ht 170.2 cm; Wt 51.8 kg
[2020-09-04 10:30] LABS: BASOPHILS # (AUTO) 0.1 X10'3 (0-0.2); EOSINOPHILS # (AUTO) 0.1 X10'3 (0-0.9); EOSINOPHILS % (AUTO) 1.2 % (0-6); HEMATOCRIT 45.1 % (42.0-52.0); HEMOGLOBIN 15.2 g/dl (14.0-17.9); LYMPHOCYTES # (AUTO) 1.9 X10'3 (1.1-4.8); LYMPHOCYTES % (AUTO) 21.4 % (21-51); MEAN CORPUSCULAR HEMOGLOBIN 31.6 PG (27.0-31.0); MEAN CORPUSCULAR HGB CONC 33.7 g/dL (33.0-36.5); MEAN CORPUSCULAR VOLUME 93.6 FL (78-98); MEAN PLATELET VOLUME 8.4 FL (7.4-10.4); MONOCYTES # (AUTO) 0.6 X10'3 (0-0.9); MONOCYTES % (AUTO) 6.4 % (2-12); NEUTROPHILS # (AUTO) 6.3 X10'3 (1.8-7.7); PLATELET COUNT 246 X10'3 (140-440); RED BLOOD COUNT 4.82 X10'6 (4.70-6.10); RED CELL DISTRIBUTION WIDTH 15.1 % (11.5-14.5)
[2020-09-04] MEDS ORDERED: loperamide 2mg capsule PO ONE (10:50)
[2020-09-04] MEDS ORDERED: normal saline 1000ml 1,000 ML IV ONE (10:50)
[2020-09-04 11:29] LABS: ALANINE AMINOTRANSFERASE 26 U/L (12-78); ALBUMIN 3.2 G/DL (3.4-5.0); ALBUMIN/GLOBULIN RATIO 0.8 (1.1-1.5); ALKALINE PHOSPHATASE 72 IU/L (46-116); ANION GAP 6 (8-16); ASPARTATE AMINO TRANSFERASE 22 U/L (10-37); BILIRUBIN,TOTAL 0.5 MG/DL (0.1-1.0); BLOOD UREA NITROGEN 14 MG/DL (7-18); BUN/CREATININE RATIO 17.9 (5.4-32.0); CHLORIDE 104 MMOL/L (99-107); CREATININE 0.78 MG/DL (0.60-1.10); GLUCOSE 114 MG/DL (70-104); LIPASE < 50 U/L (73-393); POTASSIUM 3.5 MMOL/L (3.5-5.1); SODIUM 142 MMOL/L (135-145); TOTAL CARBON DIOXIDE 32.3 MMOL/L (24-32); TOTAL PROTEIN 7.4 G/DL (6.4-8.2); eGFR > 90 ML/MIN
[2020-09-04] MEDS ORDERED: HYDROcodone/acetaminophen 5mg/325mg tablet PO ONE (11:55)
[2020-09-04 12:08] VITALS: BP 106/68
== END 2020-09-04 12:27 | disposition home or self-care (01) ==
LOC: ER 09:59
DX: R19.7 Diarrhea, unspecified (principal); R10.84 Generalized abdominal pain; R05 Cough; I10 Essential (primary) hypertension; J44.9 Chronic obstructive pulmonary disease, unspecified; E11.9 Type 2 diabetes mellitus without complications; G89.29 Other chronic pain; F41.9 Anxiety disorder, unspecified; F32.9 Major depressive disorder, single episode, unspecified; F12.90 Cannabis use, unspecified, uncomplicated; Z87.01 Personal history of pneumonia (recurrent); Z87.442 Personal history of urinary calculi; Z90.89 Acquired absence of other organs; Z90.49 Acquired absence of other specified parts of digestive tract; Z98.890 Other specified postprocedural states; Z72.89 Other problems related to lifestyle; Z88.1 Allergy status to other antibiotic agents; Z88.8 Allergy status to other drugs, medicaments and biological substances; Z79.2 Long term (current) use of antibiotics; Z79.899 Other long term (current) drug therapy
CPT/HCPCS: 36415; 71045; 80053; 83690; 84145; 85025; 96360; 99284; J7030

== ENCOUNTER 2020-09-30 21:19 | Emergency (ER) | payer MEDICAID ==
[~2020-09-30] VITALS: Ht 170.2 cm; Wt 47.1 kg
[2020-09-30 21:53] VITALS: BP 120/77
== END 2020-10-01 03:23 | disposition left against medical advice (07) ==
LOC: ER 21:20
DX: Z53.21 Procedure and treatment not carried out due to patient leaving prior to being seen by health care provider (principal); W19.XXXA Unspecified fall, initial encounter; Y93.89 Activity, other specified; Y92.89 Other specified places as the place of occurrence of the external cause; Y99.8 Other external cause status

== ENCOUNTER 2020-11-12 00:56 | Emergency (ER) | payer MEDICAID ==
[~2020-11-12] VITALS: Ht 172.7 cm; Wt 68.1 kg
[2020-11-12] MEDS ORDERED: HYDROcodone/acetaminophen 10/325mg tab PO ONE (03:25)
[2020-11-12] MEDS ORDERED: insulin regular, human 10 units/0.1 ml syringe SQ ONE (04:05)
[2020-11-12] MEDS ORDERED: METF-950 PO (04:06)
[2020-11-12 04:26] VITALS: BP 134/87
== END 2020-11-12 04:27 | disposition home or self-care (01) ==
LOC: ER 00:57
DX: E11.65 Type 2 diabetes mellitus with hyperglycemia (principal); I10 Essential (primary) hypertension; J44.9 Chronic obstructive pulmonary disease, unspecified; G89.29 Other chronic pain; F41.9 Anxiety disorder, unspecified; F12.90 Cannabis use, unspecified, uncomplicated; F32.9 Major depressive disorder, single episode, unspecified; Z76.0 Encounter for issue of repeat prescription; Z87.01 Personal history of pneumonia (recurrent); Z87.442 Personal history of urinary calculi; Z90.89 Acquired absence of other organs; Z90.49 Acquired absence of other specified parts of digestive tract; Z98.890 Other specified postprocedural states; Z72.89 Other problems related to lifestyle; Z88.1 Allergy status to other antibiotic agents; Z88.8 Allergy status to other drugs, medicaments and biological substances; Z79.2 Long term (current) use of antibiotics; Z79.899 Other long term (current) drug therapy
CPT/HCPCS: 82948; 96372; 99283; J1815

== ENCOUNTER 2020-11-12 21:17 | Emergency (ER) | payer MEDICAID | END 2020-11-12 22:16 | disposition left against medical advice (07) | LOC: ER 21:17 | DX: E16.2 Hypoglycemia, unspecified (principal); Z53.21 Procedure and treatment not carried out due to patient leaving prior to being seen by health care provider | CPT/HCPCS: 82948 ==

== ENCOUNTER 2021-01-16 09:17 | Emergency (ER) | payer MEDICAID ==
[~2021-01-16] VITALS: Ht 170.2 cm; Wt 55.0 kg
[2021-01-16 11:07] LABS: BASOPHILS # (AUTO) 0.1 X10'3 (0-0.2); EOSINOPHILS # (AUTO) 0.2 X10'3 (0-0.9); LYMPHOCYTES # (AUTO) 1.4 X10'3 (1.1-4.8); LYMPHOCYTES % (AUTO) 8.9 % (21-51); MEAN CORPUSCULAR HEMOGLOBIN 31.9 PG (27.0-31.0); MEAN CORPUSCULAR HGB CONC 33.6 g/dL (33.0-36.5); MEAN PLATELET VOLUME 8.5 FL (7.4-10.4); MONOCYTES # (AUTO) 0.9 X10'3 (0-0.9)
[2021-01-16 11:10] LABS: BASOPHILS % (AUTO) 0.3 % (0-1); EOSINOPHILS % (AUTO) 1.4 % (0-6); HEMATOCRIT 46.1 % (42.0-52.0); HEMOGLOBIN 15.5 g/dl (14.0-17.9); MONOCYTES % (AUTO) 5.9 % (2-12); NEUTROPHILS # (AUTO) 12.9 X10'3 (1.8-7.7); NEUTROPHILS % (AUTO) 83.5 % (42-75); RED BLOOD COUNT 4.85 X10'6 (4.70-6.10); RED CELL DISTRIBUTION WIDTH 13.3 % (11.5-14.5); WHITE BLOOD COUNT 15.5 X10'3 (4.5-11.0)
[2021-01-16] MEDS ORDERED: ondansetron/PF 4mg/2ml inj IV ONE (11:15)
[2021-01-16] MEDS ORDERED: ipratropium/albuterol 3ml nebule NEB ONE (11:15)
[2021-01-16] MEDS ORDERED: morphine 4 MG/ML inj SYRINge IV PRN (11:15)
[2021-01-16 11:26] LABS: ALANINE AMINOTRANSFERASE 20 U/L (12-78); ALBUMIN 3.5 G/DL (3.4-5.0); ALBUMIN/GLOBULIN RATIO 0.7 (1.1-1.5); ALKALINE PHOSPHATASE 69 IU/L (46-116); ANION GAP 13 (8-16); ASPARTATE AMINO TRANSFERASE 21 U/L (10-37); BILIRUBIN,TOTAL 0.4 MG/DL (0.1-1.0); CHLORIDE 104 MMOL/L (99-107); CREATININE 0.87 MG/DL (0.60-1.10); GLUCOSE 230 MG/DL (70-104); SODIUM 139 MMOL/L (135-145); TOTAL CARBON DIOXIDE 22.2 MMOL/L (24-32); TOTAL PROTEIN 8.7 G/DL (6.4-8.2); eGFR 89 ML/MIN
[2021-01-16 11:35] LABS: BLOOD UREA NITROGEN 17 MG/DL (7-18); BUN/CREATININE RATIO 19.5 (5.4-32.0)
[2021-01-16 11:56] VITALS: BP 122/73
[2021-01-16 12:04] LABS: POTASSIUM 4.3 MMOL/L (3.5-5.1)
[2021-01-16] MEDS ORDERED: azithromycin 250mg tablet PO ONE (12:50)
== END 2021-01-16 13:53 | disposition home or self-care (01) ==
LOC: ER 09:17
DX: R05 Cough (principal); J44.9 Chronic obstructive pulmonary disease, unspecified; R06.02 Shortness of breath; I10 Essential (primary) hypertension; G89.29 Other chronic pain; E11.9 Type 2 diabetes mellitus without complications; F41.9 Anxiety disorder, unspecified; F32.9 Major depressive disorder, single episode, unspecified; F17.200 Nicotine dependence, unspecified, uncomplicated; F12.90 Cannabis use, unspecified, uncomplicated; Z87.01 Personal history of pneumonia (recurrent); Z87.442 Personal history of urinary calculi; Z90.89 Acquired absence of other organs; Z90.49 Acquired absence of other specified parts of digestive tract; Z98.890 Other specified postprocedural states; Z72.89 Other problems related to lifestyle; Z79.2 Long term (current) use of antibiotics; Z88.8 Allergy status to other drugs, medicaments and biological substances; Z79.899 Other long term (current) drug therapy
CPT/HCPCS: 36415; 71045; 80053; 83605; 83880; 85025; 87040; 87077; 87186; 93005; 94640; 96374; 96375; 99285; J2270; J2405; 94760

== ENCOUNTER 2021-01-20 10:58 | Inpatient (IN) | payer MEDICAID ==
[~2021-01-20] VITALS: Ht 170.2 cm; Wt 53.2 kg
[2021-01-20 13:29] LABS: ALANINE AMINOTRANSFERASE 20 U/L (12-78); ALBUMIN 3.3 G/DL (3.4-5.0); ALBUMIN/GLOBULIN RATIO 0.7 (1.1-1.5); ALKALINE PHOSPHATASE 59 IU/L (46-116); ANION GAP 11 (8-16); ASPARTATE AMINO TRANSFERASE 11 U/L (10-37); BILIRUBIN,TOTAL 0.5 MG/DL (0.1-1.0); BLOOD UREA NITROGEN 20 MG/DL (7-18); BUN/CREATININE RATIO 22.2 (5.4-32.0); C-REACTIVE PROTEIN 2.78 MG/DL (0.0-0.5); CALCIUM 9.2 MG/DL (8.5-10.1); CHLORIDE 105 MMOL/L (99-107); GLUCOSE 139 MG/DL (70-104); POTASSIUM 4.2 MMOL/L (3.5-5.1); SODIUM 139 MMOL/L (135-145); TOTAL CARBON DIOXIDE 22.6 MMOL/L (24-32); TOTAL PROTEIN 8.3 G/DL (6.4-8.2); eGFR 86 ML/MIN
[2021-01-20 13:47] LABS: BASOPHILS # (AUTO) 0.1 X10'3 (0-0.2); BASOPHILS % (AUTO) 0.8 % (0-1); EOSINOPHILS # (AUTO) 0.3 X10'3 (0-0.9); EOSINOPHILS % (AUTO) 2.7 % (0-6); HEMATOCRIT 41.6 % (42.0-52.0); HEMOGLOBIN 14.2 g/dl (14.0-17.9); LYMPHOCYTES # (AUTO) 2.2 X10'3 (1.1-4.8); LYMPHOCYTES % (AUTO) 21.6 % (21-51); MEAN CORPUSCULAR HEMOGLOBIN 32.2 PG (27.0-31.0); MEAN CORPUSCULAR HGB CONC 34.1 g/dL (33.0-36.5); MEAN CORPUSCULAR VOLUME 94.3 FL (78-98); MEAN PLATELET VOLUME 8.5 FL (7.4-10.4); MONOCYTES % (AUTO) 9.5 % (2-12); NEUTROPHILS # (AUTO) 6.6 X10'3 (1.8-7.7); NEUTROPHILS % (AUTO) 65.4 % (42-75); PLATELET COUNT 277 X10'3 (140-440); RED BLOOD COUNT 4.42 X10'6 (4.70-6.10); RED CELL DISTRIBUTION WIDTH 13.3 % (11.5-14.5); WHITE BLOOD COUNT 10.1 X10'3 (4.5-11.0)
[2021-01-21] MEDS ORDERED: mag hydrox/Alum hydrox/simeth 30ml oral suspension PO PRN (01:55)
[2021-01-21] MEDS ORDERED: dextrose ORAL solution 15 GM/59 ML bottle PO PRN ×2 (01:55)
[2021-01-21] MEDS ORDERED: MESSAGE TO PHARMACY PO ONE (01:55)
[2021-01-21] MEDS ORDERED: glucagon, human recombinant 1mg kit SUBCUT PRN (01:55)
[2021-01-21] MEDS ORDERED: insulin Lispro (HumaLOG) vial - multi-dose SQ SCH (01:55)
[2021-01-21] MEDS ORDERED: dextrose 50%-water 50ml dispensing syringe IV PRN ×2 (01:55)
[2021-01-21] MEDS ORDERED: acetaminophen 325mg tablet PO PRN ×2 (01:55)
[2021-01-21] MEDS ORDERED: HYDROcodone/acetaminophen 5mg/325mg tablet PO PRN (01:55)
[2021-01-21] MEDS ORDERED: ondansetron/PF 4mg/2ml inj IV PRN (01:55)
[2021-01-21] MEDS ORDERED: magnesium hydroxide 30ml (MOM) UD suspension PO PRN (01:55)
[2021-01-21] MEDS: normal saline 1000ml 1,000 ML IV SCH ×3 (03:05→21:55)
[2021-01-21] MEDS: vancomycin/NS 1 GM ADD-VANTAGE 250 ML IV SCH ×2 (03:05→14:49)
[2021-01-21] MEDS ORDERED: morphine 4 MG/ML inj SYRINge IV PRN ×2 (03:10→03:15)
[2021-01-21] MEDS ORDERED: ondansetron/PF 4mg/2ml inj IV ONE ×2 (03:10→03:15)
--- NOTE | 2021-01-21 03:21 | NUR ---
PT STILL IN HALLWAY AND HAS YET TO BE ABLE TO GET A ROOM OR HAVE STAFFING FOR A NURSE TO TAKE THE PATIENT AN ASSIGNMENT. PT HAS A CAREGIVER WITH HIM AT BEDSIDE IN THE HALLWAY. PT IS AOX4 IN [facility].
[2021-01-21] MEDS ORDERED: oxyCODONE/APAP 10/325mg tablet PO ONE (03:35)
[2021-01-21 04:05] LABS: MAGNESIUM 2.2 MG/DL (1.5-2.4); PHOSPHORUS 4.8 MG/DL (2.3-4.5)
[2021-01-21 04:20] LABS: HEMOGLOBIN A1C 7.3 % (4.5-6.2)
[2021-01-21] MEDS: docusate sod 100mg capsule PO SCH ×2 (08:00→19:52)
[2021-01-21] MEDS ORDERED: clindamycin 600mg/D5W 50ml 50 ML IV ONE (08:35)
[2021-01-21] MEDS: morphine 2 MG/ML inj. syringe IV PRN ×3 (09:05→20:12)
[2021-01-21 09:09] LABS: BASOPHILS # (AUTO) 0.1 X10'3 (0-0.2); BASOPHILS % (AUTO) 0.7 % (0-1); EOSINOPHILS # (AUTO) 0.3 X10'3 (0-0.9); EOSINOPHILS % (AUTO) 3.1 % (0-6); HEMATOCRIT 39.8 % (42.0-52.0); HEMOGLOBIN 13.7 g/dl (14.0-17.9); LYMPHOCYTES # (AUTO) 2.8 X10'3 (1.1-4.8); LYMPHOCYTES % (AUTO) 25.2 % (21-51); MEAN CORPUSCULAR HEMOGLOBIN 32.4 PG (27.0-31.0); MEAN CORPUSCULAR HGB CONC 34.5 g/dL (33.0-36.5); MEAN CORPUSCULAR VOLUME 94.1 FL (78-98); MONOCYTES # (AUTO) 1.2 X10'3 (0-0.9); MONOCYTES % (AUTO) 10.9 % (2-12); NEUTROPHILS # (AUTO) 6.6 X10'3 (1.8-7.7); NEUTROPHILS % (AUTO) 60.1 % (42-75); PLATELET COUNT 321 X10'3 (140-440); RED BLOOD COUNT 4.23 X10'6 (4.70-6.10)
[2021-01-21 09:47] LABS: ALANINE AMINOTRANSFERASE 18 U/L (12-78); ALBUMIN/GLOBULIN RATIO 0.6 (1.1-1.5); ALKALINE PHOSPHATASE 57 IU/L (46-116); ANION GAP 13 (8-16); ASPARTATE AMINO TRANSFERASE 22 U/L (10-37); BILIRUBIN,TOTAL 0.4 MG/DL (0.1-1.0); BLOOD UREA NITROGEN 27 MG/DL (7-18); BUN/CREATININE RATIO 29.3 (5.4-32.0); CALCIUM 8.7 MG/DL (8.5-10.1); CHLORIDE 107 MMOL/L (99-107); CREATININE 0.92 MG/DL (0.60-1.10); GLUCOSE 122 MG/DL (70-104); POTASSIUM 4.4 MMOL/L (3.5-5.1); SODIUM 139 MMOL/L (135-145); TOTAL CARBON DIOXIDE 18.8 MMOL/L (24-32); TOTAL PROTEIN 7.7 G/DL (6.4-8.2); eGFR 83 ML/MIN
[2021-01-21] MEDS: HYDROcodone/acetaminophen 10/325mg tab PO PRN ×3 (10:21→22:58)
[2021-01-21] MEDS ORDERED: iohexol 300mg/ml 100ml inj. ONE (10:59)
--- NOTE | 2021-01-21 11:00 | NUR ---
Patient in room JULIANE 348. I have received report from JAMEL MCGUIRE and had the opportunity to ask questions and assume patient care.patient orientated to floor. medicated for pain. went for CT, caregiver present seen by Dr diaz. will continue to monitor
[2021-01-21 11:01] VITALS: BP 143/94
[2021-01-21] MEDS ORDERED: METF-436 PO (11:01)
[2021-01-21] MEDS ORDERED: oxyCODONE IR 5mg (immed. release) tablet PO PRN (11:35)
[2021-01-21] MEDS ORDERED: docusate sod 100mg capsule PO PRN (11:35)
[2021-01-21] MEDS ORDERED: FLU VACC QS2021-22(6MOS UP)/PF 60 MCG/0.5 ML SYRINGE IM ONE (11:35)
[2021-01-21] MEDS ORDERED: hydrOXYzine 25 MG tablet PO PRN (11:35)
[2021-01-21] MEDS ORDERED: MESSAGE TO NURSING PO ONE (12:50)
[2021-01-21] MEDS: gabapentin 300mg capsule PO SCH ×2 (13:37→22:57)
--- NOTE | 2021-01-21 17:00 | NUR ---
IV reited in right upper arm. patients caregiver left at 4pm. Requested that patient not be left alone to eat. patient is able to feed self but likes someone there in case of difficulty. patient has some dysphagia and Cerebral palsy but is use to feeding self with supervision. Using urinal .norco and MS for pain with good effect.
[2021-01-21] MEDS: clindamycin 600mg/D5W 50ml 50 ML IV SCH ×2 (17:11→22:44)
[2021-01-21 18:00] VITALS: BP 122/83
[2021-01-21] MEDS ORDERED: lurasidone 20mg tablet PO SCH (18:00)
--- NOTE | 2021-01-21 18:53 | NUR ---
Problems reprioritized. Patient report given, questions answered & plan of care reviewed with jerald MCGUIRE.
[2021-01-21] MEDS: lactobacillus rhamnosus 10,000 MMU CELLS/CAPSULE PO SCH (19:52)
[2021-01-21] MEDS: oxybutynin 5mg tablet PO SCH (19:52)
[2021-01-21] MEDS: propranolol 10mg tablet PO SCH (19:53)
[2021-01-21] MEDS: tizanidine 4mg tablet PO SCH (19:57)
[2021-01-21] MEDS: ipratropium 0.5 MG/2.5ML nebule NEB SCH (20:38)
[2021-01-21] MEDS ORDERED: traZODone 50mg tablet PO SCH (21:00)
[2021-01-21] MEDS ORDERED: tamsulosin 0.4mg capsule PO SCH (21:00)
[2021-01-21] MEDS ORDERED: insulin glargine (Lantus) pen - multi-dose SQ SCH (21:00)
[2021-01-22] MEDS: vancomycin/NS 1 GM ADD-VANTAGE 250 ML IV SCH (01:53)
[2021-01-22] MEDS: ipratropium 0.5 MG/2.5ML nebule NEB SCH (02:47)
[2021-01-22] MEDS: clindamycin 600mg/D5W 50ml 50 ML IV SCH ×2 (03:51→09:05)
[2021-01-22] MEDS: morphine 2 MG/ML inj. syringe IV PRN ×2 (04:01→09:03)
--- NOTE | 2021-01-22 06:48 | NUR ---
Patient in room JULIANE 348. I have received report from Ramesh MCGUIRE and had the opportunity to ask questions and assume patient care.
[2021-01-22] MEDS: HYDROcodone/acetaminophen 10/325mg tab PO PRN (07:11)
[2021-01-22] MEDS: tizanidine 4mg tablet PO SCH (07:12)
[2021-01-22] MEDS: oxybutynin 5mg tablet PO SCH (07:12)
[2021-01-22] MEDS: propranolol 10mg tablet PO SCH (07:13)
[2021-01-22] MEDS: lactobacillus rhamnosus 10,000 MMU CELLS/CAPSULE PO SCH (07:14)
[2021-01-22] MEDS: docusate sod 100mg capsule PO SCH (07:15)
[2021-01-22] MEDS: gabapentin 300mg capsule PO SCH ×2 (07:16→12:06)
[2021-01-22 07:22] LABS: BASOPHILS # (AUTO) 0.1 X10'3 (0-0.2); BASOPHILS % (AUTO) 0.9 % (0-1); EOSINOPHILS # (AUTO) 0.3 X10'3 (0-0.9); EOSINOPHILS % (AUTO) 3.4 % (0-6); HEMATOCRIT 39.4 % (42.0-52.0); LYMPHOCYTES # (AUTO) 1.9 X10'3 (1.1-4.8); LYMPHOCYTES % (AUTO) 25.1 % (21-51); MEAN CORPUSCULAR HEMOGLOBIN 31.8 PG (27.0-31.0); MEAN CORPUSCULAR VOLUME 96.1 FL (78-98); MEAN PLATELET VOLUME 9.1 FL (7.4-10.4); MONOCYTES # (AUTO) 0.8 X10'3 (0-0.9); NEUTROPHILS # (AUTO) 4.4 X10'3 (1.8-7.7); NEUTROPHILS % (AUTO) 59.6 % (42-75); PLATELET COUNT 256 X10'3 (140-440); RED CELL DISTRIBUTION WIDTH 13.2 % (11.5-14.5); WHITE BLOOD COUNT 7.4 X10'3 (4.5-11.0)
[2021-01-22 07:47] LABS: ALBUMIN 2.8 G/DL (3.4-5.0); ANION GAP 9 (8-16); BLOOD UREA NITROGEN 16 MG/DL (7-18); BUN/CREATININE RATIO 21.9 (5.4-32.0); CALCIUM 8.3 MG/DL (8.5-10.1); CHLORIDE 107 MMOL/L (99-107); CREATININE 0.73 MG/DL (0.60-1.10); GLUCOSE 102 MG/DL (70-104); POTASSIUM 3.9 MMOL/L (3.5-5.1); SODIUM 136 MMOL/L (135-145); eGFR > 90 ML/MIN
[2021-01-22] MEDS: normal saline 1000ml 1,000 ML IV SCH (07:55)
[2021-01-22 08:00] VITALS: BP 122/78
[2021-01-22] MEDS ORDERED: pantoprazole 40mg Tablet.DR PO SCH (08:00)
[2021-01-22] MEDS ORDERED: loratadine 10mg tablet PO SCH (08:00)
[2021-01-22] MEDS ORDERED: morphine ER 15mg tablet PO SCH (08:00)
[2021-01-22] MEDS ORDERED: duloxetine 30mg CAPSULE.DR PO SCH (08:00)
[2021-01-22] MEDS ORDERED: ipratropium 0.5 MG/2.5ML nebule IH PRN (08:10)
[2021-01-22] MEDS ORDERED: AMOX-580 PO (09:15)
--- NOTE | 2021-01-22 11:08 | NUR ---
DM consult: A1c 7.3 Pt states he has received information previously about diabetes. Currently lives at home but has 09/11 care in his home, caregiver at bedside. Provided pt and caregiver w/ written and verbal diabetes education w/ RD contact info. Pt observed w/ full body muscle and fat wasting, hx of cerebral palsy per EMR. Caregiver has been w/ pt for 3 years and reports this is his baseline appearance and he eats well. Will continue to monitor. Addendum: 01/22/21 at [address] Amended: Links added.
[2021-01-22] MEDS ORDERED: VANCOMYCIN LEVEL IV ONE (12:30)
--- NOTE | 2021-01-22 12:45 | NUR ---
Pt discharged at 1245. IV removed, tip intact no complications. belonings sent with pt. pt educated on discharge follow up. Pt discharged in stable condition with caregiver to home.
== END 2021-01-22 12:50 | disposition home or self-care (01) | DRG 351 ==
LOC: ER 10:59 → ED HOLD 01-21 01:57 → SUR 3N 01-21 09:55
PROVIDERS: ADMIT Internal Medicine; ATTEND Family Medicine
DX: M71.122 Other infective bursitis, left elbow (principal); E11.9 Type 2 diabetes mellitus without complications; L03.114 Cellulitis of left upper limb; F32.A Depression, unspecified; F12.90 Cannabis use, unspecified, uncomplicated; F41.9 Anxiety disorder, unspecified; G89.4 Chronic pain syndrome; I10 Essential (primary) hypertension; J44.9 Chronic obstructive pulmonary disease, unspecified; N40.0 Benign prostatic hyperplasia without lower urinary tract symptoms; Z79.84 Long term (current) use of oral hypoglycemic drugs; Z79.899 Other long term (current) drug therapy; Z87.442 Personal history of urinary calculi; Z90.49 Acquired absence of other specified parts of digestive tract; Z23 Encounter for immunization; Z99.3 Dependence on wheelchair; Z88.8 Allergy status to other drugs, medicaments and biological substances
CPT/HCPCS: 36415; 73201; 80048; 80053; 82948; 83036; 83605; 83735; 83970; 84100; 84145; 85025; 85651; 86140; 87040; 87081; 93005; 94640; 94760; 99285; G0378; J1815; J2270; J2405; J3370; J3490; J7030; Q0177; Q9967

== ENCOUNTER 2021-04-28 09:59 | Inpatient (IN) | payer MEDICAID ==
[~2021-04-28] VITALS: Ht 170.2 cm; Wt 59.9 kg
[~2021-04-28 09:59] MED LIST changes: +AMOX-580 PO; +METF-436 PO; -METF-950 PO; -NEUPHOSK PO; -SULF1TAB45 PO; -TEST200V10 SUBCUT; +TEST200V33 SUBCUT; +TIZA-205 PO; -TIZA4TAB5 PO
[2021-04-28 12:01] LABS: BASOPHILS # (AUTO) 0.1 X10'3 (0-0.2); BASOPHILS % (AUTO) 0.6 % (0-1); EOSINOPHILS # (AUTO) 0.3 X10'3 (0-0.9); EOSINOPHILS % (AUTO) 2.3 % (0-6); HEMATOCRIT 45.6 % (42.0-52.0); HEMOGLOBIN 15.5 g/dl (14.0-17.9); LYMPHOCYTES # (AUTO) 1.6 X10'3 (1.1-4.8); LYMPHOCYTES % (AUTO) 14.3 % (21-51); MEAN CORPUSCULAR HEMOGLOBIN 31.3 PG (27.0-31.0); MEAN CORPUSCULAR VOLUME 92.1 FL (78-98); MEAN PLATELET VOLUME 8.2 FL (7.4-10.4); MONOCYTES # (AUTO) 1.3 X10'3 (0-0.9); MONOCYTES % (AUTO) 11.6 % (2-12); NEUTROPHILS # (AUTO) 7.9 X10'3 (1.8-7.7); NEUTROPHILS % (AUTO) 71.2 % (42-75); PLATELET COUNT 272 X10'3 (140-440); RED BLOOD COUNT 4.96 X10'6 (4.70-6.10); RED CELL DISTRIBUTION WIDTH 13.4 % (11.5-14.5); WHITE BLOOD COUNT 11.1 X10'3 (4.5-11.0)
[2021-04-28 12:18] LABS: ALANINE AMINOTRANSFERASE 19 U/L (12-78); ALBUMIN 3.7 G/DL (3.4-5.0); ALBUMIN/GLOBULIN RATIO 0.8 (1.1-1.5); ALKALINE PHOSPHATASE 64 IU/L (46-116); ANION GAP 11 (8-16); ASPARTATE AMINO TRANSFERASE 15 U/L (10-37); BLOOD UREA NITROGEN 23 MG/DL (7-18); CALCIUM 9.8 MG/DL (8.5-10.1); CHLORIDE 103 MMOL/L (99-107); GLUCOSE 218 MG/DL (70-104); POTASSIUM 4.1 MMOL/L (3.5-5.1); SODIUM 136 MMOL/L (135-145); TOTAL CARBON DIOXIDE 21.9 MMOL/L (24-32); TOTAL PROTEIN 8.2 G/DL (6.4-8.2); eGFR 76 ML/MIN
[2021-04-28 12:26] LABS: PLATELET ESTIMATE NORMAL; TOTAL CELLS COUNTED 100
[2021-04-28] MEDS ORDERED: albuterol 2.5 MG/3 ML nebule NEB ONE (13:10)
[2021-04-28] MEDS ORDERED: HYDROcodone/acetaminophen 10/325mg tab PO ONE (13:10)
[2021-04-28] MEDS ORDERED: metoprolol tartrate 1mg/ml inj IV ONE (13:40)
[2021-04-28] MEDS: morphine 4 MG/ML inj SYRINge IV PRN ×2 (14:21→17:51)
[2021-04-28] MEDS ORDERED: magnesium 4gm in 100ml NS 100 ML IV PRN (14:30)
[2021-04-28] MEDS ORDERED: potassium Cl 20 mEq SR tablet PO PRN ×2 (14:30)
[2021-04-28] MEDS ORDERED: magnesium hydroxide 30ml (MOM) UD suspension PO PRN (14:30)
[2021-04-28] MEDS ORDERED: potassium CL 10mEq/100ml bag 100 ML IV PRN (14:30)
[2021-04-28] MEDS ORDERED: ondansetron/PF 4mg/2ml inj IV PRN (14:30)
[2021-04-28] MEDS: normal saline 1000ml 1,000 ML IV SCH (14:30)
[2021-04-28] MEDS ORDERED: acetaminophen 325mg tablet PO PRN (14:30)
[2021-04-28] MEDS ORDERED: mag hydrox/Alum hydrox/simeth 30ml oral suspension PO PRN (14:30)
[2021-04-28] MEDS ORDERED: magnesium 2GM in 50ml NS 50 ML IV PRN (14:30)
[2021-04-28] MEDS ORDERED: magnesium Cl slow-release 64mg tablet PO PRN (14:30)
[2021-04-28] MEDS ORDERED: iohexol 350MG/ML 100ml bottle IV ONE (15:05)
--- NOTE | 2021-04-28 15:13 | NUR ---
to CT at this time.
[2021-04-28 15:16] LABS: D-DIMER 1.03 MG/L FEU (0-0.50)
[2021-04-28 15:18] LABS: MAGNESIUM 1.3 MG/DL (1.5-2.4); POTASSIUM 3.6 MMOL/L (3.5-5.1)
[2021-04-28] MEDS: piperacillin/tazo 3.375gm/50ml 50 ML IV SCH (16:00)
[2021-04-28] MEDS ORDERED: albuterol 2.5 MG/3 ML nebule NEB SCH (16:00)
[2021-04-28] MEDS ORDERED: docusate sod 100mg capsule PO PRN (16:15)
[2021-04-28] MEDS ORDERED: oxyCODONE IR 5mg (immed. release) tablet PO PRN (16:15)
--- NOTE | 2021-04-28 19:37 | NUR ---
PT SOILED HIMSELF AND BED, LINENS CHANGED, PT IN CLEAN GOWN, BELONGINGS IN BAG AT BEDSIDE WITH CAREGIVER WHO IS ALSO AT BEDSIDE. US IV PLACED TO LEFT UPPER ARM WITH ZOSYN RUNNING NOW. PT RIPPED OUT PREVIOUS IV AT ATTEMPT TO STAND AND URINATE. PT ADVISED TO NOT STAND ANY MORE AT THIS TIME.
[2021-04-28] MEDS: albuterol 2.5 MG/3 ML nebule NEB SCH ×2 (20:40→23:45)
[2021-04-28] MEDS: lurasidone 20mg tablet PO SCH (21:27)
[2021-04-28] MEDS: propranolol 10mg tablet PO SCH (21:30)
[2021-04-28] MEDS: pantoprazole 40mg Tablet.DR PO SCH (21:30)
[2021-04-28] MEDS: gabapentin 300mg capsule PO SCH (21:31)
[2021-04-28] MEDS: oxybutynin 5mg tablet PO SCH (21:31)
[2021-04-28] MEDS: tamsulosin 0.4mg capsule PO SCH (21:32)
[2021-04-28] MEDS: K and/or MAG REPLACEMENT MC SCH (22:19)
[2021-04-28] MEDS: hydrOXYzine 25 MG tablet PO PRN (22:32)
[2021-04-28] MEDS: tizanidine 4mg tablet PO SCH (22:33)
[2021-04-28] MEDS: docusate sod 100mg capsule PO SCH (22:33)
[2021-04-28] MEDS: traZODone 50mg tablet PO SCH (22:35)
[2021-04-29] VITALS (7 sets, daily range): BP systolic 92–138; BP diastolic 43–81
--- NOTE | 2021-04-29 00:30 | NUR ---
Mr Riley has been admitted to 301. He is accompanied by Sirena Sewell from the facility that he lives in. He has been assessed as indicated. He states that he has pain it is rated 9/10 and this is related to his chronic back pain. he has a strong moist productive cough. He manages his secretions well, He is incontinent of bladder. Speech is garbled as a baseline. It is possible to understand what he is saying. The admission process was completed with the assistance of the staff member at the bed side. She states that staff fro the facility will be at the bedside 9a-7p. Mr Riley is capable of making his needs known. mr Riley lives in the supportive living services division of [facility]. he has his own space and cares for him self. Staff is arounf 24 hours a day and meals are provided. The address is [address] [place] [address] Telephone number is [phone] Sirena Sewell is the supervisor contact and service clerks for Mr. Bermeo [phone]
[2021-04-29] MEDS ORDERED: OXYCODONE 80 MG PO PRN (01:15)
[2021-04-29] MEDS ORDERED: oxyCODONE IR 5mg (immed. release) tablet PO PRN (01:15)
[2021-04-29] MEDS: oxyCODONE IR 5mg (immed. release) tablet PO PRN ×3 (02:56→20:01)
[2021-04-29] MEDS: methylPREDNISolone sod succ 125mg/2ml vial IV SCH ×3 (02:57→16:43)
[2021-04-29] MEDS: albuterol 2.5 MG/3 ML nebule NEB SCH ×3 (03:15→11:34)
--- NOTE | 2021-04-29 05:05 | NUR ---
IV Zosyn delayed IV Zosyn has been delayed due to loss of IV access
[2021-04-29] MEDS: piperacillin/tazo 3.375gm/50ml 50 ML IV SCH ×3 (05:12→16:43)
--- NOTE | 2021-04-29 05:30 | NUR ---
IV access was established in his righ upper shoulder.
--- NOTE | 2021-04-29 06:15 | NUR ---
Problems reprioritized. Patient report given, questions answered & plan of care reviewed with JAQUELINE MCGUIRE.
[2021-04-29] MEDS: morphine ER 15mg tablet PO SCH (07:32)
[2021-04-29] MEDS: gabapentin 300mg capsule PO SCH ×3 (07:32→20:03)
[2021-04-29] MEDS: docusate sod 100mg capsule PO SCH ×2 (07:32→19:58)
[2021-04-29] MEDS: oxybutynin 5mg tablet PO SCH ×2 (07:33→19:58)
[2021-04-29] MEDS: loratadine 10mg tablet PO SCH (07:33)
[2021-04-29] MEDS: duloxetine 30mg CAPSULE.DR PO SCH (07:33)
[2021-04-29] MEDS: pantoprazole 40mg Tablet.DR PO SCH ×2 (07:33→19:58)
[2021-04-29] MEDS: propranolol 10mg tablet PO SCH ×2 (07:34→19:57)
[2021-04-29] MEDS: enoxaparin 40mg/0.4ml syringe SUBCUT SCH (07:34)
[2021-04-29 08:00] LABS: ANION GAP 16 (8-16); BLOOD UREA NITROGEN 21 MG/DL (7-18); BUN/CREATININE RATIO 21.6 (5.4-32.0); CALCIUM 9.3 MG/DL (8.5-10.1); CHLORIDE 103 MMOL/L (99-107); CREATININE 0.97 MG/DL (0.60-1.10); GLUCOSE 234 MG/DL (70-104); POTASSIUM 4.1 MMOL/L (3.5-5.1); SODIUM 138 MMOL/L (135-145); TOTAL CARBON DIOXIDE 19.3 MMOL/L (24-32); eGFR 78 ML/MIN
[2021-04-29] MEDS: K and/or MAG REPLACEMENT MC SCH ×2 (08:00→20:00)
[2021-04-29] MEDS ORDERED: ipratropium 0.5 MG/2.5ML nebule NEB SCH (08:00)
[2021-04-29 09:45] LABS: BASOPHILS % (AUTO) 0.2 % (0-1); EOSINOPHILS % (AUTO) 0.1 % (0-6); HEMATOCRIT 37.7 % (42.0-52.0); HEMOGLOBIN 13.1 g/dl (14.0-17.9); LYMPHOCYTES # (AUTO) 0.6 X10'3 (1.1-4.8); LYMPHOCYTES % (AUTO) 5.6 % (21-51); MEAN CORPUSCULAR HEMOGLOBIN 31.6 PG (27.0-31.0); MEAN CORPUSCULAR HGB CONC 34.6 g/dL (33.0-36.5); MEAN CORPUSCULAR VOLUME 91.2 FL (78-98); MEAN PLATELET VOLUME 8.3 FL (7.4-10.4); MONOCYTES # (AUTO) 0.2 X10'3 (0-0.9); MONOCYTES % (AUTO) 2.2 % (2-12); NEUTROPHILS # (AUTO) 9.8 X10'3 (1.8-7.7); NEUTROPHILS % (AUTO) 91.9 % (42-75); PLATELET COUNT 242 X10'3 (140-440); RED BLOOD COUNT 4.14 X10'6 (4.70-6.10); RED CELL DISTRIBUTION WIDTH 13.2 % (11.5-14.5); WHITE BLOOD COUNT 10.6 X10'3 (4.5-11.0)
--- NOTE | 2021-04-29 10:00 | NUR ---
Delay in stress test Per Dr. Nikhil martinez for stress test after first dose of electrolyte replacement. Adri GUZMAN Addendum: 04/29/21 at 1031 by Adri Sanford RN stress test notified and made aware.
[2021-04-29] MEDS: tizanidine 4mg tablet PO SCH ×2 (10:16→19:58)
[2021-04-29] MEDS: hydrOXYzine 25 MG tablet PO PRN (10:16)
[2021-04-29] MEDS: MESSAGE TO NURSING PO NR (15:15)
[2021-04-29] MEDS: ipratropium/albuterol 3ml nebule NEB SCH ×2 (16:11→20:11)
[2021-04-29] MEDS: lurasidone 20mg tablet PO SCH (16:49)
[2021-04-29] MEDS ORDERED: dextrose 50%-water 50ml dispensing syringe IV PRN ×2 (17:35)
[2021-04-29] MEDS ORDERED: MESSAGE TO PHARMACY PO ONE (17:35)
[2021-04-29] MEDS ORDERED: dextrose ORAL solution 15 GM/59 ML bottle PO PRN ×2 (17:35)
[2021-04-29] MEDS ORDERED: glucagon, human recombinant 1mg kit SUBCUT PRN (17:35)
--- NOTE | 2021-04-29 18:27 | NUR ---
Problems reprioritized. Patient report given Milady MCGUIRE, questions answered & plan of care reviewed with Milady MCGUIRE.
--- NOTE | 2021-04-29 18:30 | NUR ---
Patient in room PCU 3014. I have received report from Melba MCGUIRE and had the opportunity to ask questions and assume patient care.
[2021-04-29] MEDS: traZODone 50mg tablet PO SCH (20:02)
[2021-04-29] MEDS: tamsulosin 0.4mg capsule PO SCH (20:02)
[2021-04-29] MEDS: insulin Lispro (HumaLOG) vial - multi-dose SQ SCH (21:53)
[2021-04-29] MEDS: insulin glargine (Lantus) pen - multi-dose SQ SCH (21:56)
[2021-04-30] MEDS: ipratropium/albuterol 3ml nebule NEB SCH ×7 (00:08→23:00)
[2021-04-30] MEDS: piperacillin/tazo 3.375gm/50ml 50 ML IV SCH ×4 (01:32→23:20)
[2021-04-30] MEDS: methylPREDNISolone sod succ 125mg/2ml vial IV SCH ×4 (01:33→23:20)
--- NOTE | 2021-04-30 05:16 | NUR ---
Vitals remain stable, patient complained of back pain, 15mg oXYCODONE WAS GIVEN FOR PAIN. Solu-medrol was given for his COPD ex. diagnosis. HS blood sugar was 415 at 2100, humalog and lantus. protocol initiated.
[2021-04-30 06:00] VITALS: BP 96/62
--- NOTE | 2021-04-30 06:00 | NUR ---
Patient in room PCU 3014. I have received report from Gabby and had the opportunity to ask questions and assume patient care.
[2021-04-30] MEDS: oxyCODONE IR 5mg (immed. release) tablet PO PRN ×4 (06:08→20:09)
--- NOTE | 2021-04-30 06:44 | NUR ---
Problems reprioritized. Patient report given, questions answered & plan of care reviewed with BRYAN MCGUIRE.
[2021-04-30 07:03] LABS: BASOPHILS % (AUTO) 0.1 % (0-1); EOSINOPHILS % (AUTO) 0 % (0-6); HEMATOCRIT 36.6 % (42.0-52.0); HEMOGLOBIN 12.6 g/dl (14.0-17.9); LYMPHOCYTES # (AUTO) 0.6 X10'3 (1.1-4.8); LYMPHOCYTES % (AUTO) 7.8 % (21-51); MEAN CORPUSCULAR HEMOGLOBIN 31.5 PG (27.0-31.0); MEAN CORPUSCULAR HGB CONC 34.3 g/dL (33.0-36.5); MEAN CORPUSCULAR VOLUME 91.9 FL (78-98); MEAN PLATELET VOLUME 8.5 FL (7.4-10.4); MONOCYTES # (AUTO) 0.4 X10'3 (0-0.9); MONOCYTES % (AUTO) 4.5 % (2-12); NEUTROPHILS # (AUTO) 7.2 X10'3 (1.8-7.7); NEUTROPHILS % (AUTO) 87.6 % (42-75); PLATELET COUNT 223 X10'3 (140-440); RED BLOOD COUNT 3.99 X10'6 (4.70-6.10); RED CELL DISTRIBUTION WIDTH 13.1 % (11.5-14.5); WHITE BLOOD COUNT 8.2 X10'3 (4.5-11.0)
[2021-04-30 07:33] LABS: ALBUMIN 2.6 G/DL (3.4-5.0); ANION GAP 12 (8-16); BLOOD UREA NITROGEN 24 MG/DL (7-18); BUN/CREATININE RATIO 27.9 (5.4-32.0); CALCIUM 8.9 MG/DL (8.5-10.1); CHLORIDE 105 MMOL/L (99-107); CREATININE 0.86 MG/DL (0.60-1.10); GLUCOSE 312 MG/DL (70-104); POTASSIUM 3.8 MMOL/L (3.5-5.1); SODIUM 139 MMOL/L (135-145); TOTAL CARBON DIOXIDE 22.2 MMOL/L (24-32); eGFR 90 ML/MIN
[2021-04-30] MEDS: K and/or MAG REPLACEMENT MC SCH ×2 (08:00→20:00)
[2021-04-30] MEDS: tizanidine 4mg tablet PO SCH ×2 (08:00→20:10)
[2021-04-30] MEDS: docusate sod 100mg capsule PO SCH ×2 (08:06→20:11)
[2021-04-30] MEDS: gabapentin 300mg capsule PO SCH ×3 (08:06→20:10)
[2021-04-30] MEDS: propranolol 10mg tablet PO SCH ×2 (08:06→20:00)
[2021-04-30] MEDS: duloxetine 30mg CAPSULE.DR PO SCH (08:07)
[2021-04-30] MEDS: loratadine 10mg tablet PO SCH (08:07)
[2021-04-30] MEDS: pantoprazole 40mg Tablet.DR PO SCH ×2 (08:07→20:00)
[2021-04-30] MEDS: morphine ER 15mg tablet PO SCH (08:07)
[2021-04-30] MEDS: oxybutynin 5mg tablet PO SCH ×2 (08:07→20:10)
[2021-04-30] MEDS: enoxaparin 40mg/0.4ml syringe SUBCUT SCH (08:08)
[2021-04-30] MEDS: MESSAGE TO NURSING PO NR (10:00)
[2021-04-30] MEDS: azithromycin/NS 500mg/250ml 250 ML IV SCH (10:21)
[2021-04-30 11:00] VITALS: BP 101/63
[2021-04-30] MEDS: insulin Lispro (HumaLOG) vial - multi-dose SQ SCH ×2 (12:28→21:45)
[2021-04-30] MEDS: hydrOXYzine 25 MG tablet PO PRN (13:50)
[2021-04-30] MEDS: normal saline 1000ml 1,000 ML IV SCH (15:51)
[2021-04-30 18:00] VITALS: BP 90/49
[2021-04-30] MEDS: lurasidone 20mg tablet PO SCH (18:24)
[2021-04-30] MEDS: tamsulosin 0.4mg capsule PO SCH (20:10)
[2021-04-30] MEDS: lactobacillus rhamnosus 10,000 MMU CELLS/CAPSULE PO SCH (20:10)
[2021-04-30] MEDS: traZODone 50mg tablet PO SCH (20:10)
[2021-04-30] MEDS: insulin glargine (Lantus) pen - multi-dose SQ SCH (21:44)
[2021-04-30 22:59] VITALS: BP 110/41
[2021-05-01 02:00] VITALS: BP 134/72
[2021-05-01] MEDS: oxyCODONE IR 5mg (immed. release) tablet PO PRN ×3 (02:29→11:54)
[2021-05-01] MEDS: ipratropium/albuterol 3ml nebule NEB SCH ×4 (03:07→16:21)
[2021-05-01] MEDS: hydrOXYzine 25 MG tablet PO PRN ×2 (03:48→13:27)
--- NOTE | 2021-05-01 05:08 | NUR ---
Patient still complaining of back pain and left hip pain, PRN oxycodone given twice during shift.
[2021-05-01 06:00] VITALS: BP 103/55
--- NOTE | 2021-05-01 06:40 | NUR ---
Problems reprioritized. Patient report given, questions answered & plan of care reviewed with Angeles MCGUIRE.
[2021-05-01] MEDS: azithromycin/NS 500mg/250ml 250 ML IV SCH (07:48)
[2021-05-01] MEDS: piperacillin/tazo 3.375gm/50ml 50 ML IV SCH ×2 (07:49→16:00)
[2021-05-01] MEDS: docusate sod 100mg capsule PO SCH (07:50)
[2021-05-01] MEDS: pantoprazole 40mg Tablet.DR PO SCH (07:50)
[2021-05-01] MEDS: propranolol 10mg tablet PO SCH (07:51)
[2021-05-01] MEDS: oxybutynin 5mg tablet PO SCH (07:51)
[2021-05-01] MEDS: duloxetine 30mg CAPSULE.DR PO SCH (07:51)
[2021-05-01 07:52] LABS: ALBUMIN 2.6 G/DL (3.4-5.0); ANION GAP 9 (8-16); BLOOD UREA NITROGEN 25 MG/DL (7-18); BUN/CREATININE RATIO 27.2 (5.4-32.0); CALCIUM 8.6 MG/DL (8.5-10.1); CHLORIDE 105 MMOL/L (99-107); CREATININE 0.92 MG/DL (0.60-1.10); GLUCOSE 254 MG/DL (70-104); POTASSIUM 3.5 MMOL/L (3.5-5.1); SODIUM 139 MMOL/L (135-145); TOTAL CARBON DIOXIDE 25.5 MMOL/L (24-32); eGFR 83 ML/MIN
[2021-05-01] MEDS: loratadine 10mg tablet PO SCH (07:52)
[2021-05-01] MEDS: tizanidine 4mg tablet PO SCH (07:52)
[2021-05-01] MEDS: gabapentin 300mg capsule PO SCH ×2 (07:53→13:26)
[2021-05-01] MEDS: lactobacillus rhamnosus 10,000 MMU CELLS/CAPSULE PO SCH (07:53)
[2021-05-01] MEDS: morphine ER 15mg tablet PO SCH (07:53)
[2021-05-01] MEDS: enoxaparin 40mg/0.4ml syringe SUBCUT SCH (07:54)
[2021-05-01] MEDS: methylPREDNISolone sod succ 125mg/2ml vial IV SCH ×2 (07:54→16:00)
[2021-05-01 07:57] LABS: BASOPHILS % (AUTO) 0.1 % (0-1); EOSINOPHILS % (AUTO) 0 % (0-6); HEMATOCRIT 35.7 % (42.0-52.0); HEMOGLOBIN 12.2 g/dl (14.0-17.9); LYMPHOCYTES # (AUTO) 0.6 X10'3 (1.1-4.8); LYMPHOCYTES % (AUTO) 9.4 % (21-51); MEAN CORPUSCULAR HEMOGLOBIN 31.4 PG (27.0-31.0); MEAN CORPUSCULAR HGB CONC 34.3 g/dL (33.0-36.5); MEAN CORPUSCULAR VOLUME 91.7 FL (78-98); MEAN PLATELET VOLUME 8.2 FL (7.4-10.4); MONOCYTES # (AUTO) 0.3 X10'3 (0-0.9); NEUTROPHILS # (AUTO) 5.8 X10'3 (1.8-7.7); NEUTROPHILS % (AUTO) 86.5 % (42-75); PLATELET COUNT 217 X10'3 (140-440); RED BLOOD COUNT 3.89 X10'6 (4.70-6.10); RED CELL DISTRIBUTION WIDTH 13.5 % (11.5-14.5); WHITE BLOOD COUNT 6.7 X10'3 (4.5-11.0)
[2021-05-01] MEDS: K and/or MAG REPLACEMENT MC SCH (08:00)
[2021-05-01] MEDS: insulin Lispro (HumaLOG) vial - multi-dose SQ SCH ×2 (09:22→13:41)
[2021-05-01 11:00] VITALS: BP 138/72
--- NOTE | 2021-05-01 11:21 | NUR ---
O2 Sat at rest on room air:93% If below 89%: Recovery O2 Sat at rest on ___LPM:___%:___% via (mask/nasal cannula, etc..) No further documentation is necessary. If O2 Sat did not drop below 89% on room air,ambulate patient on room air. O2 Sat while ambulating on room air:___% Recovery O2 Sat while ambulating on ___LPM:___% No further documentation is necessary. If patient does not drop below 89% while ambulating, he/she does not qualify for home O2.
[2021-05-01] MEDS ORDERED: ALBU8.5H17 INH (13:45)
[2021-05-01] MEDS ORDERED: CEFD300C3 PO (13:45)
[2021-05-01] MEDS ORDERED: AZIT500T9 PO (13:45)
[2021-05-01] MEDS ORDERED: PRED10TA23 PO (13:45)
[2021-05-01] MEDS ORDERED: LACT1CAP26 PO (13:45)
[2021-05-01] MEDS ORDERED: METR-159 PO (13:45)
--- NOTE | 2021-05-01 14:12 | NUR ---
Nutrition consult: Pt and caregiver seen at bedside provided with written and verbal nutrition therapy education regarding pureed food and nectar thick liquids. Pt states someone previously talked to him about a feeding tube however he doesn't want that at this time, this was about two years ago per caregiver. Pt reports he coughs all the time and does not think it's r/t PO intake of food/liquids. RD encouraged pt to f/u with an ST upon discharge for further food consistency recommendations. All of patient and caregiver's questions were answered at this time. RD contact information provided and pt/caregiver encouraged to reach out for further questions. Will remain available. Addendum: 05/01/21 at [address] Amended: Links added.
[2021-05-01 15:00] VITALS: BP 138/84
--- NOTE | 2021-05-01 17:00 | NUR ---
Discharge instructions provided to caregiver and patient. No further questions regarding aspiration and diet changes.
[2021-05-01] MEDS: lurasidone 20mg tablet PO SCH (18:00)
--- NOTE | 2021-05-01 18:00 | NUR ---
Report given to EMS transportation. PIV removed with catheter intact. Telemetry removed. All possessions gathered
== END 2021-05-01 17:00 | disposition home health service (06) | DRG 140 ==
LOC: ER 10:00 → ED HOLD 14:34 → PCU 3S 04-29 00:20
PROVIDERS: ADMIT Family Medicine; ATTEND Family Medicine
PROC: B32T1ZZ Computerized Tomography (CT Scan) of Left Pulmonary Artery using Low Osmolar Contrast (ICD-10-PCS; principal; 2021-04-28)
PROC: B3201ZZ Computerized Tomography (CT Scan) of Thoracic Aorta using Low Osmolar Contrast (ICD-10-PCS; 2021-04-28)
PROC: B32S1ZZ Computerized Tomography (CT Scan) of Right Pulmonary Artery using Low Osmolar Contrast (ICD-10-PCS; 2021-04-28)
DX: J44.1 Chronic obstructive pulmonary disease with (acute) exacerbation (principal); J96.01 Acute respiratory failure with hypoxia; J69.0 Pneumonitis due to inhalation of food and vomit; E11.9 Type 2 diabetes mellitus without complications; I10 Essential (primary) hypertension; N40.0 Benign prostatic hyperplasia without lower urinary tract symptoms; G89.4 Chronic pain syndrome; K21.9 Gastro-esophageal reflux disease without esophagitis; K86.1 Other chronic pancreatitis; G80.9 Cerebral palsy, unspecified; Z20.822 Contact with and (suspected) exposure to COVID-19; F12.90 Cannabis use, unspecified, uncomplicated; R13.10 Dysphagia, unspecified; F41.9 Anxiety disorder, unspecified; F32.A Depression, unspecified; Z87.442 Personal history of urinary calculi; Z87.01 Personal history of pneumonia (recurrent); Z90.49 Acquired absence of other specified parts of digestive tract; Z88.1 Allergy status to other antibiotic agents; Z88.8 Allergy status to other drugs, medicaments and biological substances; Z79.899 Other long term (current) drug therapy
CPT/HCPCS: 36415; 71045; 71275; 80048; 80053; 82948; 83036; 83735; 83880; 84132; 84145; 84484; 85007; 85025; 85379; 87081; 87635; 92508; 92616; 93005; 94640; 94760; 96374; 97161; 97530; 99285; C9803; G0378; J0456; J1650; J1815; J2270; J2543; J2930; J3490; J7030; Q0177; Q9967

== ENCOUNTER 2021-06-04 01:39 | Emergency (ER) | payer MEDICAID ==
[~2021-06-04] VITALS: Ht 162.6 cm; Wt 52.7 kg
[~2021-06-04 01:39] MED LIST changes: +ALBU8.5H17 INH; -AMOX-580 PO; +AZIT500T9 PO; +LACT1CAP26 PO; +LURA40TA2 PO; -LURA40TA3 PO; -OMEP-50 PO; +OMEP20CA16 PO
[2021-06-04 02:25] LABS: BASOPHILS % (AUTO) 0.6 % (0-1); EOSINOPHILS # (AUTO) 0.9 X10'3 (0-0.9); HEMATOCRIT 45.7 % (42.0-52.0); HEMOGLOBIN 15.6 g/dl (14.0-17.9); LYMPHOCYTES # (AUTO) 1.7 X10'3 (1.1-4.8); LYMPHOCYTES % (AUTO) 23.4 % (21-51); MEAN CORPUSCULAR HEMOGLOBIN 30.9 PG (27.0-31.0); MEAN CORPUSCULAR VOLUME 90.7 FL (78-98); MEAN PLATELET VOLUME 9.8 FL (7.4-10.4); MONOCYTES # (AUTO) 0.7 X10'3 (0-0.9); PLATELET COUNT 230 X10'3 (140-440); RED BLOOD COUNT 5.04 X10'6 (4.70-6.10); RED CELL DISTRIBUTION WIDTH 13.4 % (11.5-14.5); WHITE BLOOD COUNT 7.4 X10'3 (4.5-11.0)
[2021-06-04 02:52] LABS: ALANINE AMINOTRANSFERASE 24 U/L (12-78); ALBUMIN 3.9 G/DL (3.4-5.0); ANION GAP 10 (8-16); ASPARTATE AMINO TRANSFERASE 28 U/L (10-37); BILIRUBIN,TOTAL 0.4 MG/DL (0.1-1.0); BLOOD UREA NITROGEN 12 MG/DL (7-18); BUN/CREATININE RATIO 14.8 (5.4-32.0); CALCIUM 9.3 MG/DL (8.5-10.1); CHLORIDE 104 MMOL/L (99-107); CREATININE 0.81 MG/DL (0.60-1.10); GLUCOSE 120 MG/DL (70-104); POTASSIUM 4.1 MMOL/L (3.5-5.1); SODIUM 140 MMOL/L (135-145); TOTAL CARBON DIOXIDE 26.2 MMOL/L (24-32); eGFR > 90 ML/MIN
[2021-06-04] MEDS ORDERED: methylPREDNISolone sod succ 125mg/2ml vial IV ONE (03:20)
[2021-06-04] MEDS ORDERED: albuterol 2.5 MG/3 ML nebule CONTNEB PRN (03:20)
[2021-06-04] MEDS ORDERED: normal saline 1000ML IV soln IVB ONE (04:05)
[2021-06-04] MEDS ORDERED: LORazepam 2 mg/ml vial IV ONE (04:15)
[2021-06-04] MEDS ORDERED: BECL7.3A INH (04:56)
--- NOTE | 2021-06-04 06:28 | NUR ---
Assumed care of pt. Awaiting transport home. Pt sitting up in bed with caregiver at bedside.
--- NOTE | 2021-06-04 07:18 | NUR ---
Notified pt that [facility] related they will have to charge pt due to insurance not covering for non-emergent transport. Per caregiver, his company normally has transport but due to time of day no one is available. States his food operations manager is reaching out to try to find transport.
[2021-06-04 07:34] VITALS: BP 134/78
[2021-06-04] MEDS ORDERED: PRED20TA PO (07:36)
== END 2021-06-04 07:37 | disposition home or self-care (01) ==
LOC: ER 01:40
DX: J44.1 Chronic obstructive pulmonary disease with (acute) exacerbation (principal); Z20.822 Contact with and (suspected) exposure to COVID-19; G80.9 Cerebral palsy, unspecified; J69.0 Pneumonitis due to inhalation of food and vomit; I10 Essential (primary) hypertension; N40.0 Benign prostatic hyperplasia without lower urinary tract symptoms; E11.9 Type 2 diabetes mellitus without complications; F12.90 Cannabis use, unspecified, uncomplicated; G89.29 Other chronic pain; Z87.442 Personal history of urinary calculi; Z90.49 Acquired absence of other specified parts of digestive tract; Z85.9 Personal history of malignant neoplasm, unspecified; Z72.89 Other problems related to lifestyle; Z88.8 Allergy status to other drugs, medicaments and biological substances; Z88.1 Allergy status to other antibiotic agents; Z79.2 Long term (current) use of antibiotics; Z79.899 Other long term (current) drug therapy
CPT/HCPCS: 36415; 71045; 80053; 83605; 83880; 84145; 84484; 85025; 87040; 87635; 93005; 94640; 94644; 94760; 96361; 96374; 96375; 99285; C9803; J2060; J2930; J7030; A7015

== ENCOUNTER 2021-06-15 19:46 | Inpatient (IN) | payer MEDICAID ==
[~2021-06-15] VITALS: Ht 170.2 cm; Wt 55.9 kg
[~2021-06-15 19:46] MED LIST changes: +BECL7.3A INH; +PRED20TA PO
[2021-06-15] MEDS ORDERED: methylPREDNISolone sod succ 125mg/2ml vial IV ONE (19:55)
[2021-06-15] MEDS ORDERED: ipratropium/albuterol 3ml nebule NEB ONE (19:55)
[2021-06-15 20:10] LABS: ABG BASE EXCESS -3.4 mmol/L (-2.0-2.0); ABG HCO3 22.7 mmol/L (22.0-26.0); ABG OXYGEN SATURATION 98.3 % (94-97); ABG PCO2 (T) 43.9 mmHg (35.0-48.0); ABG PO2 (T) 196.5 mmHg (75.0-100.0); ALLEN'S TEST POSITIVE; FCOHb 0.8 % (0.0-3.9); FLOW 10 L/min; FMetHb 0.3 % (0.0-1.5); FO2Hb 97.2 % (94-97); PATIENT TEMPERATURE 36.6; TOTAL HEMOGLOBIN 15.7 G/dl (14.0-18.0)
[2021-06-15 20:15] LABS: BASOPHILS # (AUTO) 0.1 X10'3 (0-0.2); BASOPHILS % (AUTO) 0.9 % (0-1); EOSINOPHILS # (AUTO) 1.3 X10'3 (0-0.9); EOSINOPHILS % (AUTO) 13.3 % (0-6); HEMATOCRIT 46.7 % (42.0-52.0); HEMOGLOBIN 15.7 g/dl (14.0-17.9); LYMPHOCYTES # (AUTO) 2.7 X10'3 (1.1-4.8); LYMPHOCYTES % (AUTO) 27.7 % (21-51); MEAN CORPUSCULAR HEMOGLOBIN 30.6 PG (27.0-31.0); MEAN CORPUSCULAR HGB CONC 33.7 g/dL (33.0-36.5); MEAN CORPUSCULAR VOLUME 90.7 FL (78-98); MEAN PLATELET VOLUME 10.2 FL (7.4-10.4); MONOCYTES # (AUTO) 0.7 X10'3 (0-0.9); MONOCYTES % (AUTO) 7.3 % (2-12); NEUTROPHILS # (AUTO) 4.9 X10'3 (1.8-7.7); NEUTROPHILS % (AUTO) 50.8 % (42-75); PLATELET COUNT 188 X10'3 (140-440); RED BLOOD COUNT 5.15 X10'6 (4.70-6.10); RED CELL DISTRIBUTION WIDTH 13.2 % (11.5-14.5); WHITE BLOOD COUNT 9.7 X10'3 (4.5-11.0)
[2021-06-15 20:26] LABS: ALANINE AMINOTRANSFERASE 20 U/L (12-78); ALBUMIN 3.7 G/DL (3.4-5.0); ALBUMIN/GLOBULIN RATIO 0.9 (1.1-1.5); ALKALINE PHOSPHATASE 53 IU/L (46-116); ANION GAP 8 (8-16); ASPARTATE AMINO TRANSFERASE 19 U/L (10-37); BILIRUBIN,TOTAL 0.4 MG/DL (0.1-1.0); BLOOD UREA NITROGEN 11 MG/DL (7-18); BUN/CREATININE RATIO 14.7 (5.4-32.0); CALCIUM 8.6 MG/DL (8.5-10.1); CHLORIDE 100 MMOL/L (99-107); CREATININE 0.75 MG/DL (0.60-1.10); GLUCOSE 141 MG/DL (70-104); POTASSIUM 4.8 MMOL/L (3.5-5.1); SODIUM 136 MMOL/L (135-145); TOTAL CARBON DIOXIDE 27.8 MMOL/L (24-32); TOTAL PROTEIN 7.7 G/DL (6.4-8.2); eGFR > 90 ML/MIN
[2021-06-15] MEDS ORDERED: acetaminophen 325mg tablet PO PRN (21:45)
[2021-06-15] MEDS ORDERED: magnesium hydroxide 30ml (MOM) UD suspension PO PRN (21:45)
[2021-06-15] MEDS ORDERED: normal saline 1000ml 1,000 ML IV SCH (21:45)
[2021-06-15] MEDS ORDERED: magnesium 2GM in 50ml NS 50 ML IV PRN (21:45)
[2021-06-15] MEDS ORDERED: morphine 2 MG/ML inj. syringe IV PRN (21:45)
[2021-06-15] MEDS ORDERED: magnesium 4gm in 100ml NS 100 ML IV PRN (21:45)
[2021-06-15] MEDS ORDERED: ondansetron/PF 4mg/2ml inj IV PRN (21:45)
[2021-06-15] MEDS ORDERED: potassium Cl 20 mEq SR tablet PO PRN ×2 (21:45)
[2021-06-15] MEDS ORDERED: magnesium Cl slow-release 64mg tablet PO PRN (21:45)
[2021-06-15] MEDS ORDERED: mag hydrox/Alum hydrox/simeth 30ml oral suspension PO PRN (21:45)
[2021-06-15] MEDS ORDERED: potassium CL 10mEq/100ml bag 100 ML IV PRN (21:45)
[2021-06-15] MEDS ORDERED: CefTRIAXone/D5W-Rocephin 1gm 50 ML IV ONE (21:50)
[2021-06-15] MEDS ORDERED: glucagon, human recombinant 1mg kit SUBCUT PRN (21:50)
[2021-06-15] MEDS ORDERED: MESSAGE TO PHARMACY PO ONE (21:50)
[2021-06-15] MEDS ORDERED: dextrose 50%-water 50ml dispensing syringe IV PRN ×2 (21:50)
[2021-06-15] MEDS ORDERED: DEXTROSE 15 GM of carb/4 tabs (each vial/BOTTLE has 4 tablets) PO PRN ×2 (21:50)
[2021-06-15] MEDS ORDERED: CHOL20003 PO (21:52)
[2021-06-15] MEDS ORDERED: ALBU8HFA IH (21:52)
[2021-06-15] MEDS ORDERED: BECL10.6 IH (21:52)
[2021-06-15] MEDS ORDERED: oxyCODONE IR 5mg (immed. release) tablet PO PRN (22:05)
[2021-06-15] MEDS ORDERED: albuterol 2.5 MG/3 ML nebule NEB PRN (22:05)
[2021-06-15] MEDS: morphine 2 MG/ML inj. syringe IV PRN ×2 (22:10→22:45)
--- NOTE | 2021-06-15 22:41 | NUR ---
given report for pt to Deb MORELAND) on med-surg floor.
--- NOTE | 2021-06-15 22:46 | NUR ---
Received report from TILE BURNERMAYNOR Cedeno. Patient to follow.
--- NOTE | 2021-06-15 23:00 | NUR ---
Patient arrived from ER on [facility]. Pt able to scoot over to his bed. A&O and in no apparent distress at this time. Nab Telles accompanied patient. @ MAYNOR skin check completed and VS taken. Addendum: 06/16/21 at 0119 by Alba Jefferson RN 2 RN skin check
[2021-06-15 23:15] VITALS: BP 102/74
[2021-06-16] VITALS: BP 105/74
--- NOTE | 2021-06-16 01:43 | NUR ---
Called MD to clarify orders. 1) Ok to give 1 time latuda 40mg tonight 06/15, then start HS 06/16. 2) Buspar 15mg 1 tab PO q 8hr prn anxiety. 3)Oxy IR 5 mg schedule BID.
[2021-06-16] MEDS ORDERED: lurasidone 20mg tablet PO ONE (01:50)
[2021-06-16] MEDS ORDERED: BUSP15TA3 PO (01:57)
[2021-06-16] MEDS: busPIRone 15mg tablet PO PRN ×2 (02:02→09:57)
[2021-06-16 03:00] VITALS: BP 107/68
[2021-06-16] MEDS: morphine 2 MG/ML inj. syringe IV PRN ×2 (03:05→15:44)
[2021-06-16] MEDS: ipratropium 0.5 MG/2.5ML nebule NEB SCH ×4 (03:31→19:56)
--- NOTE | 2021-06-16 06:58 | NUR ---
Problems reprioritized. Patient report given, questions answered & plan of care reviewed with Gagan Sanford RN.
[2021-06-16 07:00] VITALS: BP 118/84
[2021-06-16 07:52] LABS: ALANINE AMINOTRANSFERASE 18 U/L (12-78); ALBUMIN 3.3 G/DL (3.4-5.0); ALBUMIN/GLOBULIN RATIO 0.9 (1.1-1.5); ALKALINE PHOSPHATASE 47 IU/L (46-116); ANION GAP 13 (8-16); ASPARTATE AMINO TRANSFERASE 13 U/L (10-37); BILIRUBIN,TOTAL 0.2 MG/DL (0.1-1.0); BLOOD UREA NITROGEN 15 MG/DL (7-18); BUN/CREATININE RATIO 16.7 (5.4-32.0); CALCIUM 8.9 MG/DL (8.5-10.1); CHLORIDE 101 MMOL/L (99-107); GLUCOSE 238 MG/DL (70-104); POTASSIUM 4.5 MMOL/L (3.5-5.1); SODIUM 140 MMOL/L (135-145); TOTAL CARBON DIOXIDE 25.7 MMOL/L (24-32); eGFR 85 ML/MIN
[2021-06-16 07:54] LABS: MAGNESIUM 1.5 MG/DL (1.5-2.4)
[2021-06-16] MEDS ORDERED: CefTRIAXone/D5W-Rocephin 1gm 50 ML IV SCH (08:00)
[2021-06-16] MEDS: budesonide 0.5mg/2ml UD nebule IH SCH ×2 (08:03→19:55)
[2021-06-16] MEDS: pantoprazole 40mg Tablet.DR PO SCH (08:17)
[2021-06-16] MEDS: gabapentin 300mg capsule PO SCH ×3 (08:17→21:39)
[2021-06-16] MEDS: tizanidine 4mg tablet PO SCH ×2 (08:17→20:37)
[2021-06-16] MEDS: propranolol 10mg tablet PO SCH ×2 (08:18→20:37)
[2021-06-16] MEDS: morphine ER 15mg tablet PO SCH (08:18)
[2021-06-16] MEDS: heparin, porcine 5000 units/ml vial SQ SCH ×2 (08:18→20:32)
[2021-06-16] MEDS: loratadine 10mg tablet PO SCH (08:18)
[2021-06-16] MEDS: oxyCODONE IR 5mg (immed. release) tablet PO SCH ×2 (08:19→20:37)
[2021-06-16] MEDS: docusate sod 100mg capsule PO SCH ×2 (08:19→20:36)
[2021-06-16 08:20] LABS: BASOPHILS % (AUTO) 0.7 % (0-1); EOSINOPHILS % (AUTO) 0.2 % (0-6); HEMATOCRIT 44.2 % (42.0-52.0); HEMOGLOBIN 14.9 g/dl (14.0-17.9); LYMPHOCYTES # (AUTO) 0.8 X10'3 (1.1-4.8); LYMPHOCYTES % (AUTO) 14.5 % (21-51); MEAN CORPUSCULAR HEMOGLOBIN 30.8 PG (27.0-31.0); MEAN CORPUSCULAR HGB CONC 33.7 g/dL (33.0-36.5); MEAN CORPUSCULAR VOLUME 91.6 FL (78-98); MEAN PLATELET VOLUME 10.2 FL (7.4-10.4); MONOCYTES # (AUTO) 0.1 X10'3 (0-0.9); MONOCYTES % (AUTO) 2.8 % (2-12); NEUTROPHILS # (AUTO) 4.4 X10'3 (1.8-7.7); NEUTROPHILS % (AUTO) 81.8 % (42-75); PLATELET COUNT 168 X10'3 (140-440); RED BLOOD COUNT 4.82 X10'6 (4.70-6.10); RED CELL DISTRIBUTION WIDTH 12.9 % (11.5-14.5); WHITE BLOOD COUNT 5.3 X10'3 (4.5-11.0)
[2021-06-16] MEDS: duloxetine 30mg CAPSULE.DR PO SCH (08:20)
[2021-06-16] MEDS: oxybutynin 5mg tablet PO SCH ×2 (08:20→20:36)
[2021-06-16] MEDS: K and/or MAG REPLACEMENT MC SCH ×2 (08:20→20:00)
[2021-06-16] MEDS: piperacillin/tazo 3.375gm/50ml 50 ML IV SCH ×2 (08:45→15:44)
--- NOTE | 2021-06-16 08:51 | NUR ---
Diabetes consult: Noted pt w/ hx of DM, A1c 6 well controlled. DM ed not indicated at this time. Pt admitted w/ possible aspiration PNA per EMR, currently pending BSS w/ ADMINISTRATIVE DIRECTOR. Will continue to monitor. Addendum: 06/16/21 at [address] Amended: Links added.
[2021-06-16] MEDS: insulin Lispro (HumaLOG) vial - multi-dose SQ SCH ×2 (09:48→13:51)
[2021-06-16 11:00] VITALS: BP 89/62
[2021-06-16] MEDS: LORazepam 0.5 MG tablet PO PRN ×2 (12:54→22:18)
[2021-06-16] MEDS ORDERED: lurasidone 20mg tablet PO SCH (18:00)
--- NOTE | 2021-06-16 18:21 | NUR ---
Problems reprioritized. Patient report given, questions answered & plan of care reviewed with Gagan MCGUIRE. Addendum: 06/17/21 at 0618 by Alba Jefferson RN I received report from Gagan MCGUIRE
[2021-06-16 18:30] VITALS: BP 96/64
[2021-06-16 20:35] VITALS: BP 112/75
[2021-06-16] MEDS ORDERED: insulin glargine (Lantus) pen - multi-dose SQ SCH (21:00)
[2021-06-16] MEDS ORDERED: tamsulosin 0.4mg capsule PO SCH (21:00)
[2021-06-16] MEDS ORDERED: traZODone 50mg tablet PO SCH (21:00)
[2021-06-17] VITALS: BP 95/67
[2021-06-17] MEDS: piperacillin/tazo 3.375gm/50ml 50 ML IV SCH ×2 (00:03→07:32)
[2021-06-17] MEDS: ipratropium 0.5 MG/2.5ML nebule NEB SCH ×2 (03:08→08:34)
[2021-06-17] MEDS: morphine 2 MG/ML inj. syringe IV PRN (05:47)
[2021-06-17 06:05] LABS: BASOPHILS % (AUTO) 0.5 % (0-1); EOSINOPHILS # (AUTO) 0.5 X10'3 (0-0.9); HEMATOCRIT 42.5 % (42.0-52.0); HEMOGLOBIN 14.3 g/dl (14.0-17.9); LYMPHOCYTES # (AUTO) 1.6 X10'3 (1.1-4.8); LYMPHOCYTES % (AUTO) 29.7 % (21-51); MEAN CORPUSCULAR HEMOGLOBIN 30.5 PG (27.0-31.0); MEAN CORPUSCULAR HGB CONC 33.7 g/dL (33.0-36.5); MEAN CORPUSCULAR VOLUME 90.7 FL (78-98); MEAN PLATELET VOLUME 9.8 FL (7.4-10.4); MONOCYTES # (AUTO) 0.5 X10'3 (0-0.9); MONOCYTES % (AUTO) 9.8 % (2-12); NEUTROPHILS # (AUTO) 2.7 X10'3 (1.8-7.7); PLATELET COUNT 129 X10'3 (140-440); RED BLOOD COUNT 4.69 X10'6 (4.70-6.10); WHITE BLOOD COUNT 5.2 X10'3 (4.5-11.0)
[2021-06-17 06:22] LABS: ALANINE AMINOTRANSFERASE 13 U/L (12-78); ALBUMIN 3.3 G/DL (3.4-5.0); ALBUMIN/GLOBULIN RATIO 1.1 (1.1-1.5); ALKALINE PHOSPHATASE 39 IU/L (46-116); ANION GAP 7 (8-16); ASPARTATE AMINO TRANSFERASE 11 U/L (10-37); BILIRUBIN,TOTAL 0.3 MG/DL (0.1-1.0); BLOOD UREA NITROGEN 14 MG/DL (7-18); BUN/CREATININE RATIO 16.5 (5.4-32.0); CALCIUM 9.1 MG/DL (8.5-10.1); CHLORIDE 104 MMOL/L (99-107); CREATININE 0.85 MG/DL (0.60-1.10); GLUCOSE 90 MG/DL (70-104); MAGNESIUM 1.8 MG/DL (1.5-2.4); POTASSIUM 3.9 MMOL/L (3.5-5.1); SODIUM 142 MMOL/L (135-145); TOTAL CARBON DIOXIDE 30.6 MMOL/L (24-32); TOTAL PROTEIN 6.4 G/DL (6.4-8.2); eGFR > 90 ML/MIN
--- NOTE | 2021-06-17 06:30 | NUR ---
Problems reprioritized. Patient report given, questions answered & plan of care reviewed with Allen MCGUIRE.
[2021-06-17] MEDS: K and/or MAG REPLACEMENT MC SCH (06:40)
[2021-06-17] MEDS: loratadine 10mg tablet PO SCH (07:32)
[2021-06-17] MEDS: duloxetine 30mg CAPSULE.DR PO SCH (07:32)
[2021-06-17] MEDS: gabapentin 300mg capsule PO SCH (07:33)
[2021-06-17] MEDS: docusate sod 100mg capsule PO SCH (07:33)
[2021-06-17] MEDS: heparin, porcine 5000 units/ml vial SQ SCH (07:33)
[2021-06-17] MEDS: tizanidine 4mg tablet PO SCH (07:33)
[2021-06-17] MEDS: morphine ER 15mg tablet PO SCH (07:33)
[2021-06-17] MEDS: oxyCODONE IR 5mg (immed. release) tablet PO SCH (07:33)
[2021-06-17] MEDS: propranolol 10mg tablet PO SCH (07:34)
[2021-06-17] MEDS: pantoprazole 40mg Tablet.DR PO SCH (07:34)
[2021-06-17] MEDS: oxybutynin 5mg tablet PO SCH (07:34)
[2021-06-17 08:00] VITALS: BP 119/62
[2021-06-17] MEDS: budesonide 0.5mg/2ml UD nebule IH SCH (08:34)
[2021-06-17] MEDS: insulin Lispro (HumaLOG) vial - multi-dose SQ SCH (10:41)
[2021-06-17] MEDS ORDERED: AMOX-580 PO (10:41)
[2021-06-17] MEDS ORDERED: LACT1CAP26 PO (10:41)
[2021-06-17 11:00] VITALS: BP_SYST 105; BP_DIAS 57; BP_DIAS 80
--- NOTE | 2021-06-17 12:12 | NUR ---
patient discharged, PIV x2 removed. Ancillary staff wheeled pt out with caregiver at side
== END 2021-06-17 12:12 | disposition home health service (06) | DRG 137 ==
LOC: ER 19:46 → ED HOLD 21:47 → SUR 3N 23:52
PROVIDERS: ADMIT Internal Medicine; ATTEND Family Medicine
DX: J69.0 Pneumonitis due to inhalation of food and vomit (principal); E11.40 Type 2 diabetes mellitus with diabetic neuropathy, unspecified; G80.9 Cerebral palsy, unspecified; F32.A Depression, unspecified; F41.9 Anxiety disorder, unspecified; G89.29 Other chronic pain; I10 Essential (primary) hypertension; K86.1 Other chronic pancreatitis; N40.0 Benign prostatic hyperplasia without lower urinary tract symptoms; Z87.442 Personal history of urinary calculi; Z90.49 Acquired absence of other specified parts of digestive tract; Z88.8 Allergy status to other drugs, medicaments and biological substances; Z79.899 Other long term (current) drug therapy
CPT/HCPCS: 36415; 36600; 71045; 80053; 82803; 82948; 83605; 83735; 83880; 84484; 85018; 85025; 87040; 87081; 92508; 92616; 94640; 94760; 96374; 99285; G0378; J0696; J1644; J1815; J2270; J2543; J2930; J7030

== ENCOUNTER 2021-06-20 09:49 | Day surgery (SDC) | payer MEDICAID ==
[~2021-06-20] VITALS: Ht 170.2 cm; Wt 53.0 kg
[~2021-06-20 09:49] MED LIST changes: -ALBU8.5H17 INH; +ALBU8HFA IH; +AMOX-580 PO; -AZIT500T9 PO; +BECL10.6 IH; -BECL7.3A INH; +BUSP15TA3 PO; +CHOL20003 PO; -HYDR50TA65 PO; -PRED20TA PO
[2021-06-20 10:05] VITALS: BP 107/74
[2021-06-20] MEDS ORDERED: MIDAZolam 1 MG/ML 5ML VIAL ONE (10:35)
[2021-06-20] MEDS ORDERED: LIDOcaine Viscous 15ml cup ONE (10:35)
[2021-06-20] MEDS ORDERED: fentaNYL/PF 50MCG/1 ML 2ML syringe ONE (10:35)
[2021-06-20 11:14] VITALS: BP 91/62
[2021-06-20 11:24] VITALS: BP 94/60
[2021-06-20 11:34] VITALS: BP 107/54
[2021-06-20 11:44] VITALS: BP 105/66
== END 2021-06-20 12:10 | disposition home or self-care (01) ==
LOC: GI LAB 09:49
PROVIDERS: ATTEND Internal Medicine Gastroenterology
DX: R13.12 Dysphagia, oropharyngeal phase (principal); K22.2 Esophageal obstruction; K22.89 Other specified disease of esophagus; K29.50 Unspecified chronic gastritis without bleeding; K22.70 Barrett's esophagus without dysplasia; G80.9 Cerebral palsy, unspecified; Z87.891 Personal history of nicotine dependence; Z72.89 Other problems related to lifestyle; Z88.8 Allergy status to other drugs, medicaments and biological substances; Z79.899 Other long term (current) drug therapy
CPT/HCPCS: 43239; 43248; 99152; C1769; J2250; J3010; J7040; Z7512; 99153; A4620

== ENCOUNTER 2021-11-09 05:51 | Emergency (ER) | payer MEDICAID ==
[~2021-11-09] VITALS: Ht 170.2 cm; Wt 60.0 kg
[~2021-11-09 05:51] MED LIST changes: -AMOX-580 PO
[2021-11-09] MEDS ORDERED: diltiazem 5mg/ml 5ml inj. IV ONE (07:10)
[2021-11-09] MEDS ORDERED: normal saline 1000ML IV soln IVB ONE (07:25)
[2021-11-09] MEDS ORDERED: morphine 4 MG/ML inj SYRINge IV ONE (07:25)
[2021-11-09] MEDS ORDERED: normal saline 1000ml 1,000 ML IV ONE (07:25)
[2021-11-09] MEDS ORDERED: piperacillin/tazo 4.5gm/100ml 100 ML IV SCH (08:00)
[2021-11-09 08:08] LABS: CLARITY,URINE CLEAR (Clear); COLOR,URINE YELLOW (Yellow); GLUCOSE, URINE NEGATIVE (Neg); KETONES,URINE NEGATIVE (Neg); LEUKOCYTE ESTERASE ,URINE NEGATIVE (Neg); NITRITES, URINE NEGATIVE (Neg); OCCULT BLOOD,URINE SMALL (Neg); PROTEIN,URINE NEGATIVE (Neg)
[2021-11-09 08:09] LABS: UA COLLECTION TYPE NON-SPECIFIED
[2021-11-09 08:18] LABS: BACTERIA,URINE FEW /HPF (Neg); MUCUS STRANDS FEW /LPF (Neg); SQUAMOUS EPITHELIAL CELL,UR FEW /LPF (FEW); WBC,URINE 0-4 /HPF (0-4)
[2021-11-09 08:41] VITALS: BP 123/82
[2021-11-09] MEDS ORDERED: fentaNYL/PF 50MCG/1 ML 2ML syringe IV ONE (09:20)
[2021-11-09 09:36] LABS: BASOPHILS % (AUTO) 0.5 % (0-1); EOSINOPHILS # (AUTO) 0.2 X10'3 (0-0.9); EOSINOPHILS % (AUTO) 2.5 % (0-6); HEMATOCRIT 36.9 % (42.0-52.0); HEMOGLOBIN 12.6 g/dl (14.0-17.9); LYMPHOCYTES # (AUTO) 1.7 X10'3 (1.1-4.8); LYMPHOCYTES % (AUTO) 19.6 % (21-51); MEAN CORPUSCULAR HEMOGLOBIN 32.4 PG (27.0-31.0); MEAN CORPUSCULAR HGB CONC 34.1 g/dL (33.0-36.5); MEAN PLATELET VOLUME 9.4 FL (7.4-10.4); MONOCYTES # (AUTO) 0.8 X10'3 (0-0.9); MONOCYTES % (AUTO) 9.5 % (2-12); NEUTROPHILS # (AUTO) 5.8 X10'3 (1.8-7.7); NEUTROPHILS % (AUTO) 67.9 % (42-75); PLATELET COUNT 196 X10'3 (140-440); RED BLOOD COUNT 3.88 X10'6 (4.70-6.10); RED CELL DISTRIBUTION WIDTH 12.5 % (11.5-14.5); WHITE BLOOD COUNT 8.6 X10'3 (4.5-11.0)
[2021-11-09 09:38] LABS: ALANINE AMINOTRANSFERASE 18 U/L (12-78); ALBUMIN 3.3 G/DL (3.4-5.0); ALBUMIN/GLOBULIN RATIO 0.8 (1.1-1.5); ALKALINE PHOSPHATASE 44 IU/L (46-116); ANION GAP 9 (8-16); ASPARTATE AMINO TRANSFERASE 13 U/L (10-37); BILIRUBIN,TOTAL 0.3 MG/DL (0.1-1.0); BLOOD UREA NITROGEN 20 MG/DL (7-18); BUN/CREATININE RATIO 17.9 (5.4-32.0); CALCIUM 9.1 MG/DL (8.5-10.1); CHLORIDE 108 MMOL/L (99-107); CREATININE 1.12 MG/DL (0.60-1.10); GLUCOSE 101 MG/DL (70-104); POTASSIUM 4.2 MMOL/L (3.5-5.1); SODIUM 142 MMOL/L (135-145); TOTAL CARBON DIOXIDE 25.1 MMOL/L (24-32); TOTAL PROTEIN 7.5 G/DL (6.4-8.2); eGFR 66 ML/MIN
== END 2021-11-09 10:23 | disposition home or self-care (01) ==
LOC: ER 05:51
DX: R10.32 Left lower quadrant pain (principal); I10 Essential (primary) hypertension; J44.9 Chronic obstructive pulmonary disease, unspecified; E11.9 Type 2 diabetes mellitus without complications; G89.29 Other chronic pain; M54.50 Low back pain, unspecified; Z88.1 Allergy status to other antibiotic agents; Z88.8 Allergy status to other drugs, medicaments and biological substances; Z98.890 Other specified postprocedural states; Z90.49 Acquired absence of other specified parts of digestive tract; Z87.891 Personal history of nicotine dependence
CPT/HCPCS: 36415; 71045; 74176; 80053; 81001; 83605; 83690; 85025; 87040; 93005; 96365; 96375; 99285; J2270; J2543; J3010; J7030

== ENCOUNTER 2022-02-11 23:22 | Inpatient (IN) | payer MEDICAID ==
[~2022-02-11] VITALS: Ht 167.6 cm; Wt 62.8 kg
[2022-02-11] MEDS ORDERED: glucagon, human recombinant 1mg kit ONE (23:53)
[2022-02-11] MEDS ORDERED: glucagon, human recombinant 5 MG in normal saline 100ml IV soln 100 ML IV ONE ×2 (23:55)
[2022-02-11] MEDS ORDERED: glucagon, human recombinant 1mg kit IV ONE (23:55)
[2022-02-12] VITALS (26 sets, daily range): BP systolic 87–181; BP diastolic 41–116
[2022-02-12] MEDS ORDERED: fentaNYL/PF 50MCG/1 ML 2ML syringe IV ONE
[2022-02-12] MEDS ORDERED: albuterol 2.5 MG/3 ML nebule NEB ONE ×2 (00:05→01:30)
[2022-02-12] MEDS ORDERED: normal saline 1000ml 1,000 ML IV ONE (00:10)
[2022-02-12 00:20] LABS: BASOPHILS # (AUTO) 0.1 X10'3 (0-0.2); BASOPHILS % (AUTO) 0.7 % (0-1); EOSINOPHILS # (AUTO) 0.4 X10'3 (0-0.9); EOSINOPHILS % (AUTO) 2.8 % (0-6); HEMATOCRIT 40.9 % (42.0-52.0); HEMOGLOBIN 14.2 g/dl (14.0-17.9); LYMPHOCYTES # (AUTO) 1.9 X10'3 (1.1-4.8); LYMPHOCYTES % (AUTO) 15.5 % (21-51); MEAN CORPUSCULAR HEMOGLOBIN 31.8 PG (27.0-31.0); MEAN CORPUSCULAR HGB CONC 34.6 g/dL (33.0-36.5); MEAN CORPUSCULAR VOLUME 91.9 FL (78-98); MEAN PLATELET VOLUME 9.5 FL (7.4-10.4); MONOCYTES # (AUTO) 0.9 X10'3 (0-0.9); MONOCYTES % (AUTO) 7.1 % (2-12); NEUTROPHILS # (AUTO) 9.3 X10'3 (1.8-7.7); NEUTROPHILS % (AUTO) 73.9 % (42-75); PLATELET COUNT 272 X10'3 (140-440); RED BLOOD COUNT 4.45 X10'6 (4.70-6.10); RED CELL DISTRIBUTION WIDTH 12.9 % (11.5-14.5); WHITE BLOOD COUNT 12.6 X10'3 (4.5-11.0)
[2022-02-12 00:22] LABS: APTT 26 SECONDS (22-32)
[2022-02-12 00:25] LABS: ALANINE AMINOTRANSFERASE 20 U/L (12-78); ALBUMIN 3.7 G/DL (3.4-5.0); ALBUMIN/GLOBULIN RATIO 0.8 (1.1-1.5); ALKALINE PHOSPHATASE 66 IU/L (46-116); ANION GAP 12 (8-16); ASPARTATE AMINO TRANSFERASE 17 U/L (10-37); BILIRUBIN,TOTAL 0.3 MG/DL (0.1-1.0); BLOOD UREA NITROGEN 13 MG/DL (7-18); BUN/CREATININE RATIO 13.7 (5.4-32.0); CALCIUM 9.1 MG/DL (8.5-10.1); CHLORIDE 101 MMOL/L (99-107); CREATININE 0.95 MG/DL (0.60-1.10); GLUCOSE 221 MG/DL (70-104); SODIUM 136 MMOL/L (135-145); TOTAL CARBON DIOXIDE 22.8 MMOL/L (24-32); TOTAL PROTEIN 8.1 G/DL (6.4-8.2); eGFR 80 ML/MIN
[2022-02-12 00:52] LABS: ABG BASE EXCESS -4.1 mmol/L (-2.0-2.0); ABG HCO3 20.1 mmol/L (22.0-26.0); ABG PCO2 (T) 33.8 mmHg (35.0-48.0); ABG PO2 (T) 30.6 mmHg (75.0-100.0); ALLEN'S TEST Modified; FCOHb 0.9 % (0.0-3.9); FMetHb 0.3 % (0.0-1.5); FO2Hb 58.3 % (94-97); PATIENT TEMPERATURE 36.6; RESPIRATORY RATE 12 b/min; TOTAL HEMOGLOBIN 14.5 G/dl (14.0-17.9)
[2022-02-12] MEDS ORDERED: propofol 1000mg/100ml bottle 100 ML IV ONE (01:00)
[2022-02-12 01:22] LABS: ABG BASE EXCESS -1.9 mmol/L (-2.0-2.0); ABG HCO3 23.3 mmol/L (22.0-26.0); ABG OXYGEN SATURATION 58.1 % (94-97); ABG PCO2 (T) 40.6 mmHg (35.0-48.0); ABG PO2 (T) 30.5 mmHg (75.0-100.0); ALLEN'S TEST Modified; FCOHb 1.1 % (0.0-3.9); FMetHb 0.3 % (0.0-1.5); FO2Hb 57.3 % (94-97); PATIENT TEMPERATURE 36.6; PEEP 10 cm H2O; RESPIRATORY RATE 22 b/min; TIDAL VOLUME 500 mL; TOTAL HEMOGLOBIN 14.8 G/dl (14.0-17.9)
[2022-02-12] MEDS ORDERED: iohexol 350MG/ML 100ml bottle IV ONE (02:48)
[2022-02-12] MEDS ORDERED: piperacillin/tazo 3.375gm/50ml 50 ML IV SCH (04:04)
[2022-02-12] MEDS ORDERED: morphine 10mg/ml inj. IV ONE (05:10)
[2022-02-12] MEDS: fentaNYL 50mcg/ml PF inj. 2,500 MCG in normal saline 250ml IV soln 200 ML IV SCH (05:22)
--- NOTE | 2022-02-12 05:33 | NUR ---
BRONCHOSCOPY PERFORMED BY . PT SPO2 WENT FROM 78% TO 93% AFTER REMOVAL OF OBJECT
[2022-02-12] MEDS ORDERED: metoprolol tartrate 1mg/ml inj IV ONE (06:40)
--- NOTE | 2022-02-12 07:21 | NUR ---
CPR INITIATED. 0722M 1MG EPI PUSH 0723 1 AMP BICARB PUSH, PULSE CHECK, NO PULSE, CPR CONTINUED 0725 CALCIUM 1000MG PUSH, PULSE CHECK, ROSC 0725 CPR COMPLETED. 0725 NOREPI GTT STARTED
[2022-02-12] MEDS ORDERED: aspirin 81mg tab.chew PO ONE (07:30)
[2022-02-12 07:49] LABS: ABG BASE EXCESS -4.1 mmol/L (-2.0-2.0); ABG HCO3 23.4 mmol/L (22.0-26.0); ABG OXYGEN SATURATION 72.3 % (94-97); ABG PO2 (T) 40.3 mmHg (75.0-100.0); ALLEN'S TEST Modified; FCOHb 1.2 % (0.0-3.9); FMetHb 0.3 % (0.0-1.5); FO2Hb 71.2 % (94-97); PEEP 15 cm H2O; RESPIRATORY RATE 22 b/min; TIDAL VOLUME 500 mL; TOTAL HEMOGLOBIN 16.7 G/dl (14.0-17.9)
[2022-02-12] MEDS ORDERED: magnesium sulf 1 GM/2 ML ONE (08:00)
[2022-02-12] MEDS ORDERED: sod chloride 0.9% 10ml flush syringe IV ONE ×3 (08:00)
[2022-02-12] MEDS ORDERED: rocuronium 10mg/ml inj IV ONE ×2 (08:00)
[2022-02-12] MEDS ORDERED: etomidate 2mg/ml inj. ONE (08:00)
[2022-02-12] MEDS ORDERED: NORepinephrine 1 mg/ml inj IV ONE (08:00)
[2022-02-12] MEDS ORDERED: sodium bicarbonate (8.4%) 1 mEq/ml syringe ONE ×3 (08:00)
[2022-02-12] MEDS ORDERED: epiNEPHrine 0.1mg/ml 10ml syringe ONE ×2 (08:00)
[2022-02-12] MEDS ORDERED: calcium chloride 100 MG/1 ML inj IV ONE (08:00)
[2022-02-12 08:32] LABS: BASOPHILS % (AUTO) 0.2 % (0-1); EOSINOPHILS # (AUTO) 0.1 X10'3 (0-0.9); EOSINOPHILS % (AUTO) 0.4 % (0-6); HEMATOCRIT 49.1 % (42.0-52.0); LYMPHOCYTES # (AUTO) 1.8 X10'3 (1.1-4.8); LYMPHOCYTES % (AUTO) 9.1 % (21-51); MEAN CORPUSCULAR HEMOGLOBIN 30.6 PG (27.0-31.0); MEAN CORPUSCULAR HGB CONC 32.7 g/dL (33.0-36.5); MEAN CORPUSCULAR VOLUME 93.6 FL (78-98); MEAN PLATELET VOLUME 9.5 FL (7.4-10.4); MONOCYTES # (AUTO) 0.9 X10'3 (0-0.9); MONOCYTES % (AUTO) 4.4 % (2-12); NEUTROPHILS # (AUTO) 17.4 X10'3 (1.8-7.7); NEUTROPHILS % (AUTO) 85.9 % (42-75); PLATELET COUNT 338 X10'3 (140-440); RED BLOOD COUNT 5.24 X10'6 (4.70-6.10); RED CELL DISTRIBUTION WIDTH 13.3 % (11.5-14.5); WHITE BLOOD COUNT 20.3 X10'3 (4.5-11.0)
[2022-02-12 08:52] LABS: ALANINE AMINOTRANSFERASE 20 U/L (12-78); ALBUMIN 2.6 G/DL (3.4-5.0); ALBUMIN/GLOBULIN RATIO 0.7 (1.1-1.5); ALKALINE PHOSPHATASE 72 IU/L (46-116); ANION GAP 11 (8-16); ASPARTATE AMINO TRANSFERASE 21 U/L (10-37); BILIRUBIN,TOTAL 0.4 MG/DL (0.1-1.0); BLOOD UREA NITROGEN 15 MG/DL (7-18); BUN/CREATININE RATIO 14.6 (5.4-32.0); CALCIUM 8.4 MG/DL (8.5-10.1); CHLORIDE 103 MMOL/L (99-107); CREATININE 1.03 MG/DL (0.60-1.10); GLUCOSE 276 MG/DL (70-104); SODIUM 137 MMOL/L (135-145); TOTAL CARBON DIOXIDE 22.6 MMOL/L (24-32); TOTAL PROTEIN 6.4 G/DL (6.4-8.2); eGFR 73 ML/MIN
[2022-02-12 09:01] LABS: MAGNESIUM 1.6 MG/DL (1.5-2.4)
[2022-02-12] MEDS ORDERED: phenylephrine inj 50 MG in normal saline 250ml IV soln 245 ML IV SCH (09:35)
[2022-02-12] MEDS ORDERED: albumin (human) 25% 100 ML IV solution IV ONE (09:35)
--- NOTE | 2022-02-12 09:43 | NUR ---
SODIUM BICARB PUSH
[2022-02-12] MEDS ORDERED: sodium bicarbonate (8.4%) 1 mEq/ml syringe IV ONE ×2 (09:50→11:35)
[2022-02-12] MEDS ORDERED: vasopressin inj. 40 UNIT in dextrose 5%-water 50ml 38 ML IV SCH (10:00)
[2022-02-12] MEDS: vasopressin inj. 40 UNIT in normal saline 50ml IV soln 38 ML IV SCH ×2 (10:28→19:55)
[2022-02-12] MEDS ORDERED: ketamine 10mg/ml 20ml inj vial IV ONE (10:40)
[2022-02-12] MEDS ORDERED: ketamine 50mg/5ml syringe IV ONE ×2 (10:50→11:20)
--- NOTE | 2022-02-12 12:11 | NUR ---
Patient was tachycardic at 630 am this morning with soft pressures in 100/60s. gas analyst dean of students was notified and the response was that the patient still needed a rigid bronchoscopy and that particular procedure wasn't offered at [facility]. Emergency Doc was updated on this information but before we could make arrangement for transfer the patient became unstable with PEA. Overall this morning the patient was coded 3 times with short intervals of time maybe 45 minutes in between. Each time with a bradycardic episode and low blood pressures before. Patient was stablized after the 3rd code and transferred to an ICU bed. Report given to Sam MCGUIRE
[2022-02-12] MEDS ORDERED: POTASSIUM BICARB 20meq eff tab 20 MEQ TABLET.EFF PO PRN ×2 (12:20)
[2022-02-12] MEDS ORDERED: LIDOcaine 2% 10ml TOPICAL JELLY (Urojet) TP ONE (12:20)
[2022-02-12] MEDS ORDERED: magnesium hydroxide 30ml (MOM) UD suspension PO PRN (12:20)
[2022-02-12] MEDS ORDERED: ondansetron/PF 4mg/2ml inj IV PRN (12:20)
[2022-02-12] MEDS ORDERED: acetaminophen 325mg tablet PO PRN ×2 (12:20)
[2022-02-12 12:27] LABS: ABG BASE EXCESS -2.8 mmol/L (-2.0-2.0); ABG HCO3 22.5 mmol/L (22.0-26.0); ABG OXYGEN SATURATION 73.8 % (94-97); ABG PO2 (T) 36.1 mmHg (75.0-100.0); FCOHb 0.3 % (0.0-3.9); FMetHb 0.3 % (0.0-1.5); FO2Hb 73.4 % (94-97); PEEP 15 cm H2O; RESPIRATORY RATE 22 b/min; TIDAL VOLUME 500 mL; TOTAL HEMOGLOBIN 12.2 G/dl (14.0-17.9)
[2022-02-12] MEDS ORDERED: hydrocortisone sod succ/PF 100mg/2ml inj. IV STA (12:50)
[2022-02-12] MEDS ORDERED: vancomycin 1000 MG in NS 250ml X 1 ER IV SCH (13:00)
[2022-02-12 13:05] LABS: ALANINE AMINOTRANSFERASE 18 U/L (12-78); ALBUMIN/GLOBULIN RATIO 2.4 (1.1-1.5); ALKALINE PHOSPHATASE 38 IU/L (46-116); ANION GAP 12 (8-16); ASPARTATE AMINO TRANSFERASE 27 U/L (10-37); BILIRUBIN,TOTAL 0.6 MG/DL (0.1-1.0); BLOOD UREA NITROGEN 18 MG/DL (7-18); BUN/CREATININE RATIO 13.4 (5.4-32.0); CALCIUM 7.8 MG/DL (8.5-10.1); CHLORIDE 108 MMOL/L (99-107); CREATININE 1.34 MG/DL (0.60-1.10); GLUCOSE 220 MG/DL (70-104); SODIUM 147 MMOL/L (135-145); TOTAL CARBON DIOXIDE 26.7 MMOL/L (24-32); TOTAL PROTEIN 5.7 G/DL (6.4-8.2); eGFR 54 ML/MIN
[2022-02-12 13:22] LABS: BASOPHILS % (AUTO) 0.3 % (0-1); EOSINOPHILS # (AUTO) 0.1 X10'3 (0-0.9); EOSINOPHILS % (AUTO) 1.3 % (0-6); HEMATOCRIT 33.8 % (42.0-52.0); HEMOGLOBIN 11.6 g/dl (14.0-17.9); LYMPHOCYTES % (AUTO) 19.5 % (21-51); MEAN CORPUSCULAR HEMOGLOBIN 31.4 PG (27.0-31.0); MEAN CORPUSCULAR HGB CONC 34.2 g/dL (33.0-36.5); MEAN CORPUSCULAR VOLUME 91.6 FL (78-98); MEAN PLATELET VOLUME 9.3 FL (7.4-10.4); MONOCYTES # (AUTO) 0.2 X10'3 (0-0.9); MONOCYTES % (AUTO) 3.1 % (2-12); NEUTROPHILS # (AUTO) 3.8 X10'3 (1.8-7.7); NEUTROPHILS % (AUTO) 75.8 % (42-75); PLATELET COUNT 189 X10'3 (140-440); RED BLOOD COUNT 3.69 X10'6 (4.70-6.10); RED CELL DISTRIBUTION WIDTH 12.7 % (11.5-14.5)
[2022-02-12] MEDS: sodium bicarbonate (8.4%) inj. 150 MEQ in dextrose 5%-water 1,000 ML IV SCH ×2 (13:35→21:46)
[2022-02-12] MEDS: NORepinephrine 8mg/ 250ml NS 250 ML IV SCH ×2 (13:45→19:15)
[2022-02-12] MEDS: albumin (human) 5% 500 ML NS IV SCH ×8 (13:49→22:59)
[2022-02-12] MEDS: piperacillin/tazo 3.375gm/50ml 50 ML IV SCH ×2 (15:14→23:42)
[2022-02-12] MEDS ORDERED: BUSP10TA10 PO (17:14)
[2022-02-12] MEDS ORDERED: OMEP40CA21 PO (17:14)
[2022-02-12] MEDS ORDERED: ALB0.5UD NEB (17:14)
[2022-02-12] MEDS ORDERED: OLAN5TAB75 PO (17:17)
[2022-02-12] MEDS ORDERED: LIDO700A47 TOP (17:17)
[2022-02-12] MEDS ORDERED: MEGE400O6 PO (17:17)
[2022-02-12] MEDS ORDERED: PRIM250T8 PO (17:17)
--- NOTE | 2022-02-12 17:31 | NUR ---
Dr Peterson rounded ordered Sodium Bicarb rate reduced to 75 mL/hr and Albumin dose reduced to 75 mL/hr.
[2022-02-12] MEDS: hydrocortisone sod succ/PF 100mg/2ml inj. IV SCH ×2 (17:54→23:42)
[2022-02-12] MEDS ORDERED: magnesium 4gm in 100ml NS 100 ML IV PRN (18:30)
[2022-02-12] MEDS ORDERED: sodium phosphate inj. 30 MMOL in dextrose 5%-water 250 ML IV PRN (18:30)
[2022-02-12] MEDS ORDERED: magnesium 2GM in 50ml NS 50 ML IV PRN (18:30)
--- NOTE | 2022-02-12 18:37 | NUR ---
Problems reprioritized. Patient report given, questions answered & plan of care reviewed with MAYNOR Aguirre.
[2022-02-12 19:19] LABS: ALANINE AMINOTRANSFERASE 18 U/L (12-78); ALBUMIN 3.4 G/DL (3.4-5.0); ALKALINE PHOSPHATASE 29 IU/L (46-116); ANION GAP 15 (8-16); ASPARTATE AMINO TRANSFERASE 29 U/L (10-37); BILIRUBIN,TOTAL 0.8 MG/DL (0.1-1.0); BLOOD UREA NITROGEN 21 MG/DL (7-18); BUN/CREATININE RATIO 16.5 (5.4-32.0); CALCIUM 7.2 MG/DL (8.5-10.1); CHLORIDE 107 MMOL/L (99-107); CREATININE 1.27 MG/DL (0.60-1.10); GLUCOSE 319 MG/DL (70-104); MAGNESIUM 1.1 MG/DL (1.5-2.4); PHOSPHORUS 3.5 MG/DL (2.3-4.5); SODIUM 147 MMOL/L (135-145); TOTAL CARBON DIOXIDE 24.6 MMOL/L (24-32); TOTAL PROTEIN 5.1 G/DL (6.4-8.2); eGFR 57 ML/MIN
[2022-02-12 19:22] LABS: POTASSIUM 2.8 MMOL/L (3.5-5.1)
[2022-02-12] MEDS: potassium Cl 20mEq/100mL bag 100 ML IV PRN ×4 (19:26→22:58)
--- NOTE | 2022-02-12 19:30 | NUR ---
NG tube found to be in wrong placement. NGT had not been used by previous shift because of this. D/C'd NGT and placed OG tube. Placement checked and confirmed. OGT placed on LIS. Pt awake but drowsy, tolerated procedure well.
[2022-02-12] MEDS ORDERED: glucagon, human recombinant 1mg kit SUBCUT PRN (19:50)
[2022-02-12] MEDS ORDERED: dextrose 50%-water 50ml dispensing syringe IV PRN (19:50)
[2022-02-12] MEDS ORDERED: DEXTROSE 15 GM of carb/4 tabs (each vial/BOTTLE has 4 tablets) PO PRN ×2 (19:50)
[2022-02-12] MEDS ORDERED: MESSAGE TO PHARMACY PO ONE (19:50)
[2022-02-12] MEDS: insulin Lispro (HumaLOG) vial - multi-dose SQ SCH (20:49)
[2022-02-12] MEDS: insulin glargine (Lantus) pen - multi-dose SQ SCH (20:52)
--- NOTE | 2022-02-12 21:00 | NUR ---
Pt started on Electrolyte replacement and hyperglycemic protocol. K+ was rechecked at start of shift and found to be critical at 2.8. Mg 1.1
[2022-02-12] MEDS: NORepinephrine inj. 32 MG in normal saline 250ml IV soln 218 ML IV SCH (23:42)
[2022-02-13] VITALS (35 sets, daily range): BP systolic 80–166; BP diastolic 45–73
[2022-02-13] MEDS: insulin Lispro (HumaLOG) vial - multi-dose SQ SCH ×4 (02:12→20:00)
[2022-02-13 03:07] LABS: ABG BASE EXCESS -1.5 mmol/L (-2.0-2.0); ABG HCO3 22.6 mmol/L (22.0-26.0); ABG OXYGEN SATURATION 97.6 % (94-97); ABG PCO2 (T) 38.9 mmHg (35.0-48.0); ABG PO2 (T) 126.3 mmHg (75.0-100.0); FCOHb 0.3 % (0.0-3.9); FMetHb 0.3 % (0.0-1.5); PATIENT TEMPERATURE 38.8; PEEP 15 cm H2O; RESPIRATORY RATE 22 b/min; TIDAL VOLUME 500 mL
[2022-02-13 03:23] LABS: BASOPHILS % (AUTO) 0.1 % (0-1); EOSINOPHILS % (AUTO) 0 % (0-6); HEMATOCRIT 33.7 % (42.0-52.0); HEMOGLOBIN 11.5 g/dl (14.0-17.9); LYMPHOCYTES # (AUTO) 0.6 X10'3 (1.1-4.8); LYMPHOCYTES % (AUTO) 2.1 % (21-51); MEAN CORPUSCULAR HEMOGLOBIN 30.5 PG (27.0-31.0); MEAN CORPUSCULAR VOLUME 89.9 FL (78-98); MEAN PLATELET VOLUME 9.8 FL (7.4-10.4); MONOCYTES # (AUTO) 0.8 X10'3 (0-0.9); MONOCYTES % (AUTO) 2.8 % (2-12); NEUTROPHILS # (AUTO) 26.5 X10'3 (1.8-7.7); PLATELET COUNT 257 X10'3 (140-440); RED BLOOD COUNT 3.75 X10'6 (4.70-6.10); RED CELL DISTRIBUTION WIDTH 13.2 % (11.5-14.5)
[2022-02-13 03:29] LABS: WHITE BLOOD COUNT 27.9 X10'3 (4.5-11.0)
[2022-02-13 03:35] LABS: APTT 43 SECONDS (22-32)
[2022-02-13 03:43] LABS: ALANINE AMINOTRANSFERASE 97 U/L (12-78); ALBUMIN 3.2 G/DL (3.4-5.0); ALBUMIN/GLOBULIN RATIO 1.5 (1.1-1.5); ALKALINE PHOSPHATASE 33 IU/L (46-116); ANION GAP 11 (8-16); ASPARTATE AMINO TRANSFERASE 97 U/L (10-37); BILIRUBIN,TOTAL 0.5 MG/DL (0.1-1.0); BLOOD UREA NITROGEN 25 MG/DL (7-18); BUN/CREATININE RATIO 17.7 (5.4-32.0); CALCIUM 7.3 MG/DL (8.5-10.1); CHLORIDE 106 MMOL/L (99-107); CREATININE 1.41 MG/DL (0.60-1.10); GLUCOSE 333 MG/DL (70-104); MAGNESIUM 3.7 MG/DL (1.5-2.4); PHOSPHORUS 4.2 MG/DL (2.3-4.5); POTASSIUM 4.5 MMOL/L (3.5-5.1); SODIUM 142 MMOL/L (135-145); TOTAL CARBON DIOXIDE 24.9 MMOL/L (24-32); TOTAL PROTEIN 5.4 G/DL (6.4-8.2); eGFR 51 ML/MIN
[2022-02-13] MEDS: fentaNYL 50mcg/ml PF inj. 2,500 MCG in normal saline 250ml IV soln 200 ML IV SCH (04:09)
[2022-02-13 04:30] LABS: TOTAL CELLS COUNTED 100
[2022-02-13 04:32] LABS: PLATELET ESTIMATE NORMAL; TOXIC GRANULATION 1+
--- NOTE | 2022-02-13 04:53 | NUR ---
Pt had a period of low BP when Levo dosage was transitioning from normal strength to quad strength. Fentanyl off for a period until pt became very awake and trying to sit up. All pressors now off and Fentanyl was restarted at reduced rate. Pt's O2 levels have remained in 90's and Resp Therapist have been able to reduce FiO2 to 70%. Peep remains at 15 and pt remains in prone position with left side up. Chest tube Right side with SQ air still present. No Air Leak.
[2022-02-13] MEDS ORDERED: phenylephrine inj 50 MG in normal saline 250ml IV soln 245 ML IV PRN (05:02)
[2022-02-13] MEDS: albumin (human) 5% 500 ML NS IV SCH ×10 (06:00→20:32)
--- NOTE | 2022-02-13 06:02 | NUR ---
Problems reprioritized. Patient report given, questions answered & plan of care reviewed with Rodrigo MCGUIRE.
[2022-02-13] MEDS: K and/or MAG REPLACEMENT MC SCH (07:04)
[2022-02-13] MEDS: piperacillin/tazo 3.375gm/50ml 50 ML IV SCH ×3 (07:43→23:43)
[2022-02-13] MEDS: hydrocortisone sod succ/PF 100mg/2ml inj. IV SCH ×3 (07:43→23:43)
[2022-02-13] MEDS ORDERED: K and/or MAG REPLACEMENT MC SCH (08:00)
--- NOTE | 2022-02-13 11:00 | NUR ---
After rounds; Dr. Peterson with orders to supine the patient. Patient tolerated well. Per MD, he would like to titrate FiO2 to 40% and then decrease PEEP by 2 q1h as tolerated to keep spo2 >88%.
[2022-02-13] MEDS: sodium bicarbonate (8.4%) inj. 150 MEQ in dextrose 5%-water 1,000 ML IV SCH (12:24)
[2022-02-13] MEDS: VANCOMYCIN 750MG IV in NS 250 ML IV SCH (12:25)
[2022-02-13] MEDS: busPIRone 5mg tablet PO SCH ×2 (12:33→20:32)
--- NOTE | 2022-02-13 12:46 | NUR ---
Nutrition/Rashard Consults: Pt intubated DX near asphyxiation after aspirating on piece of hotdog, hypotension, ARDS, SHIRIN, lactic acidosis, DM, suspected septic shock, and s/p multiple code blues per medical fee clerk at rounds. Pt hx cerebral palsy w/ preserved intellect, chronic pancreatitis, Whipple procedure, and DM A1C 6.6% per EMR. Noted pt prior admit April this placed on pureed/nectar thick diet per CARTON LETTERING MACHINE OPERATOR recs w/ visit to GI lab for EGD June DX dysphagia and Grant's esophagus per EMR; RD notified RN and MD. Pt NPO w/ OG in place MAP 78 this AM during rounds; TF recs below in case prolonged intubation. Sodium bicarb/D5W running at 75ml/hr providing 306 kcals/day. Rashard 12 w/ no edema/wounds per EMR. Will monitor for further nutrition intervention needs this admit. Rec: 1. IF TF; Vital AF at 65ml/hr 2. IF TF; additional water flush 150ml Q4H 3. IF TF; PALB Q /; daily wts 4. routine bowel care 5. upon extubation; advance diet per CARTON LETTERING MACHINE OPERATOR/MD to regular 6. once PO diet; consider pancreatic enzyme supplementation given hx chronic pancreatitis s/p Whipple procedure per EMR Addendum: 02/13/22 at [address] Amended: Links added.
[2022-02-13 16:27] LABS: ABG BASE EXCESS 3.5 mmol/L (-2.0-2.0); ABG HCO3 25.7 mmol/L (22.0-26.0); ABG PCO2 (T) 31.1 mmHg (35.0-48.0); ABG PO2 (T) 61.4 mmHg (75.0-100.0); FCOHb 0.3 % (0.0-3.9); FMetHb 0.3 % (0.0-1.5); FO2Hb 92.4 % (94-97); PEEP 13 cm H2O; RESPIRATORY RATE 22 b/min; TIDAL VOLUME 500 mL; TOTAL HEMOGLOBIN 11.5 G/dl (14.0-17.9)
[2022-02-13] MEDS: normal saline 1000ml 1,000 ML IV SCH (18:00)
--- NOTE | 2022-02-13 18:21 | NUR ---
Patient in room CICU 2010. I have received report from Rodrigo MCGUIRE and had the opportunity to ask questions and assume patient care along with Paulina MCGUIRE.
--- NOTE | 2022-02-13 18:21 | NUR ---
Problems reprioritized. Patient report given, questions answered & plan of care reviewed with Nohemi MCGUIRE.
[2022-02-13] MEDS: primidone 250mg tablet PO SCH (19:53)
[2022-02-13] MEDS: oxybutynin 5mg tablet PO SCH (19:54)
[2022-02-13] MEDS: insulin glargine (Lantus) pen - multi-dose SQ SCH (20:01)
[2022-02-13] MEDS: docusate sodium 100mg/10ml UD cup PO SCH (20:32)
[2022-02-13] MEDS: OLANZAPINE 5 MG TABLET PO SCH (20:32)
[2022-02-14] VITALS (35 sets, daily range): BP systolic 92–158; BP diastolic 53–80
[2022-02-14 02:25] LABS: BASOPHILS % (AUTO) 0.1 % (0-1); EOSINOPHILS % (AUTO) 0.1 % (0-6); HEMOGLOBIN 10.4 g/dl (14.0-17.9); LYMPHOCYTES # (AUTO) 0.5 X10'3 (1.1-4.8); LYMPHOCYTES % (AUTO) 3.3 % (21-51); MEAN CORPUSCULAR HEMOGLOBIN 30.9 PG (27.0-31.0); MEAN CORPUSCULAR HGB CONC 34.5 g/dL (33.0-36.5); MEAN CORPUSCULAR VOLUME 89.5 FL (78-98); MEAN PLATELET VOLUME 9.5 FL (7.4-10.4); MONOCYTES # (AUTO) 0.5 X10'3 (0-0.9); MONOCYTES % (AUTO) 3.3 % (2-12); NEUTROPHILS # (AUTO) 15.5 X10'3 (1.8-7.7); NEUTROPHILS % (AUTO) 93.2 % (42-75); PLATELET COUNT 139 X10'3 (140-440); RED BLOOD COUNT 3.36 X10'6 (4.70-6.10); RED CELL DISTRIBUTION WIDTH 13.4 % (11.5-14.5); WHITE BLOOD COUNT 16.7 X10'3 (4.5-11.0)
[2022-02-14] MEDS: albumin (human) 5% 500 ML NS IV SCH ×10 (02:38→20:51)
[2022-02-14] MEDS: fentaNYL 50mcg/ml PF inj. 2,500 MCG in normal saline 250ml IV soln 200 ML IV SCH ×2 (02:38→21:21)
[2022-02-14 02:39] LABS: APTT 43 SECONDS (22-32)
[2022-02-14 02:43] LABS: ALANINE AMINOTRANSFERASE 120 U/L (12-78); ALBUMIN 2.7 G/DL (3.4-5.0); ALBUMIN/GLOBULIN RATIO 0.9 (1.1-1.5); ALKALINE PHOSPHATASE 45 IU/L (46-116); ANION GAP 7 (8-16); ASPARTATE AMINO TRANSFERASE 100 U/L (10-37); BILIRUBIN,TOTAL 0.5 MG/DL (0.1-1.0); BLOOD UREA NITROGEN 21 MG/DL (7-18); BUN/CREATININE RATIO 20.2 (5.4-32.0); CHLORIDE 108 MMOL/L (99-107); CREATININE 1.04 MG/DL (0.60-1.10); GLUCOSE 89 MG/DL (70-104); PHOSPHORUS 3.2 MG/DL (2.3-4.5); SODIUM 143 MMOL/L (135-145); TOTAL CARBON DIOXIDE 28.2 MMOL/L (24-32); TOTAL PROTEIN 5.6 G/DL (6.4-8.2); eGFR 72 ML/MIN
[2022-02-14 02:51] LABS: POTASSIUM 2.9 MMOL/L (3.5-5.1)
[2022-02-14] MEDS: potassium Cl 20mEq/100mL bag 100 ML IV PRN ×4 (03:02→06:14)
[2022-02-14 03:14] LABS: ABG BASE EXCESS 3.8 mmol/L (-2.0-2.0); ABG OXYGEN SATURATION 94.9 % (94-97); ABG PCO2 (T) 34.7 mmHg (35.0-48.0); ABG PO2 (T) 71.7 mmHg (75.0-100.0); FCOHb 0.3 % (0.0-3.9); FMetHb 0.3 % (0.0-1.5); FO2Hb 94.3 % (94-97); PATIENT TEMPERATURE 36.6; PEEP 13 cm H2O; RESPIRATORY RATE 16 b/min; TIDAL VOLUME 500 mL; TOTAL HEMOGLOBIN 11.1 G/dl (14.0-17.9)
[2022-02-14] MEDS: normal saline 1000ml 1,000 ML IV SCH ×2 (06:16→20:50)
--- NOTE | 2022-02-14 06:20 | NUR ---
Problems reprioritized. Patient report given, questions answered & plan of care reviewed with Jl MCGUIRE.
[2022-02-14] MEDS ORDERED: propofol 1000mg/100ml bottle 100 ML IV ONE (06:41)
[2022-02-14] MEDS: hydrocortisone sod succ/PF 100mg/2ml inj. IV SCH ×3 (07:52→23:56)
[2022-02-14] MEDS: piperacillin/tazo 3.375gm/50ml 50 ML IV SCH ×3 (07:52→23:56)
[2022-02-14] MEDS: oxybutynin 5mg tablet PO SCH ×2 (07:53→20:44)
[2022-02-14] MEDS: cholecalciferol (vitamin D3) 1,000 unit (25mcg) tablet PO SCH (07:53)
[2022-02-14] MEDS: busPIRone 5mg tablet PO SCH ×3 (07:53→20:43)
[2022-02-14] MEDS: primidone 250mg tablet PO SCH ×2 (07:56→20:44)
[2022-02-14] MEDS ORDERED: duloxetine 30mg CAPSULE.DR PO SCH (08:00)
[2022-02-14 09:59] LABS: TOTAL CELLS COUNTED 100
[2022-02-14 10:03] LABS: ACANTHOCYTES FEW; BURR CELLS FEW; PLATELET ESTIMATE DECREASED
[2022-02-14] MEDS: dextrose 50%-water 50ml dispensing syringe IV PRN (10:04)
--- NOTE | 2022-02-14 11:19 | NUR ---
TF Consult: Pt remains intubated w/ TF to start today per MD; recs below. Noted pt no longer on bicarb/D5W per EMR. Will monitor for EN tolerance and adjustment needs as medically indicated. Rec: 1. Continuous TF per MD using Vital AF at 65ml/hr; to provide 1560ml volume/day, 1872 kcals, 1265ml water, and 117g protein. 2. additional water flush 150ml Q4H 3. PALB Q /; daily wts 4. routine bowel care 5. upon extubation; advance diet per BOBTAIL DRIVER/MD to regular 6. once PO diet; consider pancreatic enzyme supplementation given hx chronic pancreatitis s/p Whipple procedure per EMR Addendum: 02/14/22 at [address] Amended: Links added.
[2022-02-14] MEDS: VANCOMYCIN 750MG IV in NS 250 ML IV SCH (12:30)
--- NOTE | 2022-02-14 18:05 | NUR ---
Patient in room CICU 2010. I have received report from Jl MCGUIRE and had the opportunity to ask questions and assume patient care.
[2022-02-14] MEDS: K and/or MAG REPLACEMENT MC SCH (18:41)
[2022-02-14] MEDS: docusate sodium 100mg/10ml UD cup PO SCH (20:43)
[2022-02-14] MEDS: OLANZAPINE 5 MG TABLET PO SCH (20:44)
[2022-02-14] MEDS ORDERED: POTASSIUM BICARB 20meq eff tab 20 MEQ TABLET.EFF CORPAK PRN (20:56)
[2022-02-14] MEDS ORDERED: magnesium hydroxide 30ml (MOM) UD suspension CORPAK PRN (20:56)
[2022-02-14] MEDS ORDERED: primidone 250mg tablet CORPAK SCH (20:57)
[2022-02-14] MEDS ORDERED: oxybutynin 5mg tablet PEG SCH (20:57)
[2022-02-14] MEDS: busPIRone 5mg tablet CORPAK SCH (21:00)
[2022-02-14] MEDS: insulin glargine (Lantus) pen - multi-dose SQ SCH (21:00)
[2022-02-14] MEDS: docusate sodium 100mg/10ml UD cup CORPAK SCH (21:00)
[2022-02-14] MEDS ORDERED: acetaminophen 325mg/10.15ml oral unit dose solution CORPAK PRN ×2 (21:00)
[2022-02-14] MEDS: NORepinephrine inj. 32 MG in normal saline 250ml IV soln 218 ML IV SCH (21:10)
[2022-02-15] VITALS (36 sets, daily range): BP systolic 94–200; BP diastolic 52–106
[2022-02-15] MEDS: albumin (human) 5% 500 ML NS IV SCH ×6 (00:54→07:32)
[2022-02-15] MEDS: vancomycin/NS 1 GM ADD-VANTAGE 250 ML IV SCH ×2 (01:07→12:52)
[2022-02-15 02:32] LABS: BASOPHILS % (AUTO) 0.1 % (0-1); EOSINOPHILS % (AUTO) 0 % (0-6); HEMATOCRIT 23.3 % (42.0-52.0); LYMPHOCYTES # (AUTO) 0.6 X10'3 (1.1-4.8); MEAN CORPUSCULAR HEMOGLOBIN 31.1 PG (27.0-31.0); MEAN CORPUSCULAR HGB CONC 34.3 g/dL (33.0-36.5); MEAN CORPUSCULAR VOLUME 90.7 FL (78-98); MEAN PLATELET VOLUME 9.8 FL (7.4-10.4); MONOCYTES # (AUTO) 0.4 X10'3 (0-0.9); MONOCYTES % (AUTO) 3.5 % (2-12); NEUTROPHILS # (AUTO) 10.3 X10'3 (1.8-7.7); NEUTROPHILS % (AUTO) 91.4 % (42-75); PLATELET COUNT 87 X10'3 (140-440); RED BLOOD COUNT 2.56 X10'6 (4.70-6.10); RED CELL DISTRIBUTION WIDTH 13.5 % (11.5-14.5); WHITE BLOOD COUNT 11.3 X10'3 (4.5-11.0)
[2022-02-15 02:47] LABS: APTT 38 SECONDS (22-32)
[2022-02-15 02:50] LABS: ALANINE AMINOTRANSFERASE 251 U/L (12-78); ALBUMIN 2.6 G/DL (3.4-5.0); ALKALINE PHOSPHATASE 97 IU/L (46-116); ANION GAP 10 (8-16); ASPARTATE AMINO TRANSFERASE 207 U/L (10-37); BILIRUBIN,TOTAL 0.7 MG/DL (0.1-1.0); BLOOD UREA NITROGEN 23 MG/DL (7-18); BUN/CREATININE RATIO 27.4 (5.4-32.0); CALCIUM 6.7 MG/DL (8.5-10.1); CHLORIDE 111 MMOL/L (99-107); CREATININE 0.84 MG/DL (0.60-1.10); GLUCOSE 155 MG/DL (70-104); MAGNESIUM 2.8 MG/DL (1.5-2.4); PHOSPHORUS 2.6 MG/DL (2.3-4.5); POTASSIUM 3.3 MMOL/L (3.5-5.1); SODIUM 145 MMOL/L (135-145); TOTAL CARBON DIOXIDE 23.6 MMOL/L (24-32); TOTAL PROTEIN 5.3 G/DL (6.4-8.2); eGFR > 90 ML/MIN
[2022-02-15 03:32] LABS: ABG BASE EXCESS -2.4 mmol/L (-2.0-2.0); ABG HCO3 21.4 mmol/L (22.0-26.0); ABG OXYGEN SATURATION 97.5 % (94-97); ABG PCO2 (T) 32.8 mmHg (35.0-48.0); ABG PO2 (T) 111.1 mmHg (75.0-100.0); FCOHb 0.3 % (0.0-3.9); FMetHb 0.3 % (0.0-1.5); FO2Hb 96.9 % (94-97); PATIENT TEMPERATURE 36.8; PEEP 10 cm H2O; RESPIRATORY RATE 14 b/min; TIDAL VOLUME 500 mL; TOTAL HEMOGLOBIN 9.6 G/dl (14.0-17.9)
[2022-02-15] MEDS: potassium Cl 20mEq/100mL bag 100 ML IV PRN ×2 (06:02→07:21)
--- NOTE | 2022-02-15 06:15 | NUR ---
Problems reprioritized. Patient report given, questions answered & plan of care reviewed with Josefina MCGUIRE.
--- NOTE | 2022-02-15 06:30 | NUR ---
Patient in room CICU 2010. I have received report from MAYNOR Glass and had the opportunity to ask questions and assume patient care.
[2022-02-15] MEDS: K and/or MAG REPLACEMENT MC SCH (07:03)
[2022-02-15] MEDS: busPIRone 5mg tablet CORPAK SCH ×3 (07:17→20:14)
[2022-02-15] MEDS: hydrocortisone sod succ/PF 100mg/2ml inj. IV SCH ×3 (07:18→23:51)
[2022-02-15] MEDS: duloxetine 30mg CAPSULE.DR CORPAK SCH (07:18)
[2022-02-15] MEDS: cholecalciferol (vitamin D3) 1,000 unit (25mcg) tablet PO SCH (07:19)
[2022-02-15] MEDS: piperacillin/tazo 3.375gm/50ml 50 ML IV SCH ×3 (07:19→23:52)
[2022-02-15] MEDS: insulin regular, human U-100 3ml vial - multi-dose SQ SCH ×3 (08:19→20:27)
[2022-02-15] MEDS: normal saline 1000ml 1,000 ML IV SCH (10:25)
--- NOTE | 2022-02-15 10:49 | NUR ---
Rounds note: Respiratory rate dropped to 12 from 14. Peep dropped to 8 from 10. Albumin bag to be finished and then discontinued. Normal saline to be discontinued.
--- NOTE | 2022-02-15 10:53 | NUR ---
Dr. Peterson informed of the patients liver enzymes trending up. He is not concerned at this time and thinks that it is still just residual shock liver.
[2022-02-15] MEDS: fentaNYL 50mcg/ml PF inj. 2,500 MCG in normal saline 250ml IV soln 200 ML IV SCH ×2 (11:18→21:41)
--- NOTE | 2022-02-15 18:11 | NUR ---
Problems reprioritized. Patient report given, questions answered & plan of care reviewed with MAYNOR Glass.
--- NOTE | 2022-02-15 18:15 | NUR ---
Patient in room CICU 2010. I have received report from Josefina MCGUIRE and had the opportunity to ask questions and assume patient care.
[2022-02-15] MEDS: primidone 250mg tablet CORPAK SCH (20:13)
[2022-02-15] MEDS: oxybutynin 5mg tablet NG SCH (20:14)
[2022-02-15] MEDS: OLANZAPINE 5 MG TABLET CORPAK SCH (20:14)
[2022-02-15] MEDS: docusate sodium 100mg/10ml UD cup CORPAK SCH (20:14)
[2022-02-15] MEDS: insulin glargine (Lantus) pen - multi-dose SQ SCH (20:28)
[2022-02-15] MEDS ORDERED: mineral oil/petrolatum ophthal oint EACHEYE PRN (21:55)
[2022-02-16] VITALS (36 sets, daily range): BP systolic 92–188; BP diastolic 50–104
[2022-02-16] MEDS: vancomycin/NS 1 GM ADD-VANTAGE 250 ML IV SCH ×2 (01:16→13:56)
[2022-02-16] MEDS: insulin regular, human U-100 3ml vial - multi-dose SQ SCH ×4 (02:13→21:03)
[2022-02-16 02:25] LABS: BASOPHILS % (AUTO) 0.2 % (0-1); EOSINOPHILS % (AUTO) 0 % (0-6); HEMATOCRIT 30.2 % (42.0-52.0); HEMOGLOBIN 10.2 g/dl (14.0-17.9); LYMPHOCYTES # (AUTO) 0.5 X10'3 (1.1-4.8); LYMPHOCYTES % (AUTO) 3.2 % (21-51); MEAN CORPUSCULAR HEMOGLOBIN 30.9 PG (27.0-31.0); MEAN CORPUSCULAR HGB CONC 33.8 g/dL (33.0-36.5); MEAN CORPUSCULAR VOLUME 91.3 FL (78-98); MEAN PLATELET VOLUME 9.6 FL (7.4-10.4); MONOCYTES # (AUTO) 0.6 X10'3 (0-0.9); MONOCYTES % (AUTO) 3.6 % (2-12); NEUTROPHILS # (AUTO) 14.5 X10'3 (1.8-7.7); PLATELET COUNT 111 X10'3 (140-440); RED BLOOD COUNT 3.31 X10'6 (4.70-6.10); RED CELL DISTRIBUTION WIDTH 13.4 % (11.5-14.5); WHITE BLOOD COUNT 15.6 X10'3 (4.5-11.0)
[2022-02-16 02:39] LABS: APTT 27 SECONDS (22-32)
[2022-02-16 02:42] LABS: ALANINE AMINOTRANSFERASE 144 U/L (12-78); ALBUMIN 2.6 G/DL (3.4-5.0); ALBUMIN/GLOBULIN RATIO 0.9 (1.1-1.5); ALKALINE PHOSPHATASE 95 IU/L (46-116); ANION GAP 8 (8-16); ASPARTATE AMINO TRANSFERASE 41 U/L (10-37); BILIRUBIN,TOTAL 0.7 MG/DL (0.1-1.0); BLOOD UREA NITROGEN 23 MG/DL (7-18); BUN/CREATININE RATIO 30.7 (5.4-32.0); CALCIUM 7.2 MG/DL (8.5-10.1); CHLORIDE 111 MMOL/L (99-107); CREATININE 0.75 MG/DL (0.60-1.10); GLUCOSE 216 MG/DL (70-104); MAGNESIUM 2.4 MG/DL (1.5-2.4); PHOSPHORUS 1.7 MG/DL (2.3-4.5); SODIUM 144 MMOL/L (135-145); TOTAL CARBON DIOXIDE 24.6 MMOL/L (24-32); TOTAL PROTEIN 5.6 G/DL (6.4-8.2); eGFR > 90 ML/MIN
[2022-02-16 03:00] LABS: ABG BASE EXCESS 0.1 mmol/L (-2.0-2.0); ABG OXYGEN SATURATION 96.8 % (94-97); ABG PCO2 (T) 36.6 mmHg (35.0-48.0); FCOHb 0.1 % (0.0-3.9); FMetHb 0.3 % (0.0-1.5); FO2Hb 96.4 % (94-97); PATIENT TEMPERATURE 37.2; PEEP 8 cm H2O; RESPIRATORY RATE 12 b/min; TIDAL VOLUME 500 mL
[2022-02-16 03:06] LABS: TOTAL CELLS COUNTED 100
[2022-02-16 03:07] LABS: LARGE PLATELETS FEW; PLATELET ESTIMATE DECREASED; TOXIC GRANULATION 1+; TOXIC VACUOLATION FEW
[2022-02-16] MEDS: potassium Cl 20mEq/100mL bag 100 ML IV PRN ×8 (04:02→23:01)
--- NOTE | 2022-02-16 06:28 | NUR ---
Problems reprioritized. Patient report given, questions answered & plan of care reviewed with Jefry MCGUIRE.
[2022-02-16] MEDS: fentaNYL 50mcg/ml PF inj. 2,500 MCG in normal saline 250ml IV soln 200 ML IV SCH (06:30)
[2022-02-16] MEDS: primidone 250mg tablet CORPAK SCH ×2 (08:03→20:44)
[2022-02-16] MEDS: busPIRone 5mg tablet CORPAK SCH ×3 (08:03→20:43)
[2022-02-16] MEDS: piperacillin/tazo 3.375gm/50ml 50 ML IV SCH ×2 (08:03→16:12)
[2022-02-16] MEDS: hydrocortisone sod succ/PF 100mg/2ml inj. IV SCH ×2 (08:03→16:07)
[2022-02-16] MEDS: duloxetine 30mg CAPSULE.DR CORPAK SCH (08:04)
[2022-02-16] MEDS: oxybutynin 5mg tablet NG SCH ×2 (08:04→20:44)
[2022-02-16] MEDS: cholecalciferol (vitamin D3) 1,000 unit (25mcg) tablet CORPAK SCH (08:05)
[2022-02-16] MEDS ORDERED: FLU VACC QS2022-23(6MOS UP)/PF 60 MCG/0.5 ML SYRINGE IMVAC ONE (10:00)
[2022-02-16] MEDS ORDERED: sodium phosphate inj. 15 MMOL in dextrose 5%-water 250 ML IV ONE (10:30)
[2022-02-16] MEDS ORDERED: metoprolol tartrate 25mg tablet PO ONE (10:45)
[2022-02-16] MEDS: labetalol 20mg/4ml (5mg/ml) syringe IV PRN (11:06)
[2022-02-16] MEDS: potassium phosphate inj 15 MMOL in dextrose 5%-water 250 ML IV ONE ×2 (11:16→12:38)
[2022-02-16] MEDS ORDERED: DEXTROSE 15 GM of carb/4 tabs (each vial/BOTTLE has 4 tablets) CORPAK PRN ×2 (11:33)
[2022-02-16] MEDS: hydrALAZINE 20mg/ml inj. IV SCH ×3 (11:54→20:44)
[2022-02-16] MEDS ORDERED: VANCOMYCIN LEVEL IV ONE (12:30)
[2022-02-16] MEDS ORDERED: furosemide 40mg/4ml inj IV ONE (12:30)
[2022-02-16] MEDS: furosemide 20 MG/2 ML vial IV SCH ×2 (13:53→20:44)
[2022-02-16] MEDS: metoprolol tartrate 25mg tablet CORPAK SCH ×2 (13:56→20:44)
[2022-02-16] MEDS: propofol 1000mg/100ml bottle 100 ML IV SCH (15:07)
[2022-02-16] MEDS: metolazone 2.5mg tablet OGT SCH ×2 (15:22→20:43)
[2022-02-16] MEDS: heparin, porcine 5000 units/ml vial SQ SCH (16:08)
[2022-02-16 17:29] LABS: ALANINE AMINOTRANSFERASE 127 U/L (12-78); ALBUMIN 2.9 G/DL (3.4-5.0); ALBUMIN/GLOBULIN RATIO 0.8 (1.1-1.5); ALKALINE PHOSPHATASE 116 IU/L (46-116); ANION GAP 8 (8-16); ASPARTATE AMINO TRANSFERASE 32 U/L (10-37); BILIRUBIN,TOTAL 1.1 MG/DL (0.1-1.0); BLOOD UREA NITROGEN 25 MG/DL (7-18); BUN/CREATININE RATIO 32.5 (5.4-32.0); CALCIUM 8.2 MG/DL (8.5-10.1); CHLORIDE 107 MMOL/L (99-107); CREATININE 0.77 MG/DL (0.60-1.10); GLUCOSE 231 MG/DL (70-104); SODIUM 143 MMOL/L (135-145); TOTAL CARBON DIOXIDE 28.2 MMOL/L (24-32); TOTAL PROTEIN 6.5 G/DL (6.4-8.2); eGFR > 90 ML/MIN
[2022-02-16 17:39] LABS: POTASSIUM 2.5 MMOL/L (3.5-5.1)
--- NOTE | 2022-02-16 18:15 | NUR ---
Patient in room CICU 2010. I have received report from Jefry MCGUIRE and had the opportunity to ask questions and assume patient care.
--- NOTE | 2022-02-16 18:25 | NUR ---
Problems reprioritized. Patient report given, questions answered & plan of care reviewed with MAYNOR Glass.
[2022-02-16] MEDS: OLANZAPINE 5 MG TABLET CORPAK SCH (20:43)
[2022-02-16] MEDS: docusate sodium 100mg/10ml UD cup CORPAK SCH (20:44)
[2022-02-16] MEDS: insulin glargine (Lantus) pen - multi-dose SQ SCH (21:04)
[2022-02-17] VITALS (33 sets, daily range): BP systolic 100–172; BP diastolic 51–99
[2022-02-17] MEDS: hydrocortisone sod succ/PF 100mg/2ml inj. IV SCH ×3 (00:25→15:40)
[2022-02-17] MEDS: piperacillin/tazo 3.375gm/50ml 50 ML IV SCH ×3 (00:25→15:41)
[2022-02-17] MEDS: heparin, porcine 5000 units/ml vial SQ SCH ×3 (00:26→15:40)
[2022-02-17] MEDS ORDERED: VANCOMYCIN LEVEL IV ONE (00:30)
[2022-02-17] MEDS: vancomycin/NS 1 GM ADD-VANTAGE 250 ML IV SCH (00:57)
[2022-02-17] MEDS: metoprolol tartrate 25mg tablet CORPAK SCH ×4 (01:52→20:44)
[2022-02-17] MEDS: furosemide 20 MG/2 ML vial IV SCH ×5 (01:52→20:44)
[2022-02-17] MEDS: insulin regular, human U-100 3ml vial - multi-dose SQ SCH ×3 (01:54→21:04)
[2022-02-17 02:01] LABS: APTT 22 SECONDS (22-32)
[2022-02-17 02:02] LABS: BASOPHILS % (AUTO) 0.2 % (0-1); EOSINOPHILS % (AUTO) 0.2 % (0-6); HEMATOCRIT 31.4 % (42.0-52.0); HEMOGLOBIN 10.9 g/dl (14.0-17.9); LYMPHOCYTES # (AUTO) 1.2 X10'3 (1.1-4.8); LYMPHOCYTES % (AUTO) 8.6 % (21-51); MEAN CORPUSCULAR HEMOGLOBIN 31.5 PG (27.0-31.0); MEAN CORPUSCULAR HGB CONC 34.7 g/dL (33.0-36.5); MEAN CORPUSCULAR VOLUME 90.8 FL (78-98); MEAN PLATELET VOLUME 10.4 FL (7.4-10.4); MONOCYTES # (AUTO) 0.9 X10'3 (0-0.9); MONOCYTES % (AUTO) 6.3 % (2-12); NEUTROPHILS # (AUTO) 11.9 X10'3 (1.8-7.7); NEUTROPHILS % (AUTO) 84.7 % (42-75); PLATELET COUNT 113 X10'3 (140-440); RED BLOOD COUNT 3.46 X10'6 (4.70-6.10); RED CELL DISTRIBUTION WIDTH 13.3 % (11.5-14.5)
[2022-02-17 02:03] LABS: ALANINE AMINOTRANSFERASE 97 U/L (12-78); ALBUMIN 2.5 G/DL (3.4-5.0); ALBUMIN/GLOBULIN RATIO 0.7 (1.1-1.5); ALKALINE PHOSPHATASE 86 IU/L (46-116); ANION GAP 7 (8-16); ASPARTATE AMINO TRANSFERASE 23 U/L (10-37); BILIRUBIN,TOTAL 0.8 MG/DL (0.1-1.0); BLOOD UREA NITROGEN 27 MG/DL (7-18); BUN/CREATININE RATIO 34.2 (5.4-32.0); CALCIUM 8.2 MG/DL (8.5-10.1); CHLORIDE 106 MMOL/L (99-107); CREATININE 0.79 MG/DL (0.60-1.10); GLUCOSE 203 MG/DL (70-104); PHOSPHORUS 1.9 MG/DL (2.3-4.5); SODIUM 144 MMOL/L (135-145); TOTAL CARBON DIOXIDE 31.3 MMOL/L (24-32); TOTAL PROTEIN 5.9 G/DL (6.4-8.2); TRIGLYCERIDES 111 MG/DL (20-135); eGFR > 90 ML/MIN
[2022-02-17 02:06] LABS: POTASSIUM 2.6 MMOL/L (3.5-5.1); VANCOMYCIN,TROUGH 39.7 UG/ML (6.0-14.0)
[2022-02-17] MEDS: metolazone 2.5mg tablet OGT SCH ×4 (02:17→20:43)
--- NOTE | 2022-02-17 02:25 | NUR ---
0210 Sudden onset of SVT in 180s at. ROYCE Wilkerson called to notify without an answer. Voicemail left with callback number. 0212 Call from lab received to report potassium level of 2.6. IV potassium started and effer k also given 021 Patient alternating between SVT in 180s and atrial fibrilation in 80s. 224 HR maintaining in atrial fibrillation in 80s. Still no call back from ROYCE Wilkerson. Will continue to monitor patient.
[2022-02-17] MEDS: potassium Cl 20mEq/100mL bag 100 ML IV PRN ×4 (03:16→08:10)
[2022-02-17 03:39] LABS: ABG BASE EXCESS 5.7 mmol/L (-2.0-2.0); ABG HCO3 27.5 mmol/L (22.0-26.0); ABG OXYGEN SATURATION 97.2 % (94-97); ABG PO2 (T) 87.9 mmHg (75.0-100.0); ALLEN'S TEST Modified; FCOHb 0.3 % (0.0-3.9); FMetHb 0.3 % (0.0-1.5); FO2Hb 96.6 % (94-97); PATIENT TEMPERATURE 36.4; PEEP 8 cm H2O; RESPIRATORY RATE 12 b/min; TIDAL VOLUME 500 mL; TOTAL HEMOGLOBIN 11.7 G/dl (14.0-17.9)
[2022-02-17] MEDS: hydrALAZINE 20mg/ml inj. IV SCH ×6 (04:23→20:45)
[2022-02-17] MEDS: fentaNYL 50mcg/ml PF inj. 2,500 MCG in normal saline 250ml IV soln 200 ML IV SCH (04:32)
[2022-02-17] MEDS: propofol 1000mg/100ml bottle 100 ML IV SCH (04:45)
[2022-02-17] MEDS: sodium phosphate inj. 15 MMOL in dextrose 5%-water 250 ML IV PRN (05:42)
--- NOTE | 2022-02-17 06:16 | NUR ---
Problems reprioritized. Patient report given, questions answered & plan of care reviewed with Jefry MCGUIRE.
--- NOTE | 2022-02-17 06:30 | NUR ---
Patient in room CICU 2010. I have received report from MAYNOR Glass and had the opportunity to ask questions and assume patient care.
[2022-02-17] MEDS: labetalol 20mg/4ml (5mg/ml) syringe IV PRN (07:26)
[2022-02-17] MEDS: primidone 250mg tablet CORPAK SCH ×2 (08:40→20:42)
[2022-02-17] MEDS: oxybutynin 5mg tablet NG SCH ×2 (08:41→20:43)
[2022-02-17] MEDS: cholecalciferol (vitamin D3) 1,000 unit (25mcg) tablet CORPAK SCH (08:41)
[2022-02-17] MEDS: duloxetine 30mg CAPSULE.DR CORPAK SCH (08:42)
[2022-02-17] MEDS: busPIRone 5mg tablet CORPAK SCH ×3 (09:10→20:43)
[2022-02-17] MEDS: pantoprazole 40MG/NS 100ML BAG 100 ML IV SCH (09:12)
[2022-02-17] MEDS: POTASSIUM BICARB 20meq eff tab 20 MEQ TABLET.EFF PO SCH ×2 (13:50→20:43)
[2022-02-17] MEDS: magnesium hydroxide 30ml (MOM) UD suspension CORPAK SCH (13:50)
--- NOTE | 2022-02-17 14:30 | NUR ---
Right IJ central line discontinued
[2022-02-17 14:56] LABS: POTASSIUM 2.8 MMOL/L (3.5-5.1)
[2022-02-17] MEDS: POTASSIUM BICARB 20meq eff tab 20 MEQ TABLET.EFF CORPAK PRN (17:33)
--- NOTE | 2022-02-17 18:13 | NUR ---
Problems reprioritized. Patient report given, questions answered & plan of care reviewed with MAYNOR Glass.
--- NOTE | 2022-02-17 18:15 | NUR ---
Patient in room CICU 2010. I have received report from Jefry MCGUIRE and had the opportunity to ask questions and assume patient care.
[2022-02-17 19:04] LABS: VANCOMYCIN,RANDOM 14.4 UG/ML
[2022-02-17] MEDS: docusate sodium 100mg/10ml UD cup CORPAK SCH (20:42)
[2022-02-17] MEDS: OLANZAPINE 5 MG TABLET CORPAK SCH (20:43)
[2022-02-17] MEDS: risperiDONE 2mg tablet CORPAK SCH (20:44)
[2022-02-17] MEDS ORDERED: risperiDONE 2mg tablet PO SCH (21:00)
[2022-02-17] MEDS: insulin glargine (Lantus) pen - multi-dose SQ SCH (21:05)
[2022-02-17 22:06] LABS: MAGNESIUM 1.9 MG/DL (1.5-2.4); POTASSIUM 3.1 MMOL/L (3.5-5.1)
[2022-02-17] MEDS: potassium CL 10mEq/100ml bag 100 ML IV PRN (22:18)
[2022-02-18] VITALS (36 sets, daily range): BP systolic 104–165; BP diastolic 21–78
[2022-02-18] MEDS: piperacillin/tazo 3.375gm/50ml 50 ML IV SCH ×3 (00:01→16:45)
[2022-02-18] MEDS: fentaNYL 50mcg/ml PF inj. 2,500 MCG in normal saline 250ml IV soln 200 ML IV SCH ×2 (00:19→18:39)
[2022-02-18] MEDS: metoprolol tartrate 25mg tablet CORPAK SCH ×4 (01:30→20:34)
[2022-02-18] MEDS: metolazone 2.5mg tablet OGT SCH ×4 (01:30→20:35)
[2022-02-18] MEDS: furosemide 20 MG/2 ML vial IV SCH ×4 (01:30→20:36)
[2022-02-18] MEDS: POTASSIUM BICARB 20meq eff tab 20 MEQ TABLET.EFF PO SCH ×3 (01:31→13:52)
[2022-02-18] MEDS: insulin regular, human U-100 3ml vial - multi-dose SQ SCH ×3 (02:34→23:07)
[2022-02-18 02:57] LABS: ABG BASE EXCESS 11.7 mmol/L (-2.0-2.0); ABG HCO3 33.8 mmol/L (22.0-26.0); ABG OXYGEN SATURATION 96.7 % (94-97); ABG PCO2 (T) 34.6 mmHg (35.0-48.0); ABG PO2 (T) 86.1 mmHg (75.0-100.0); ALLEN'S TEST POSITIVE; FCOHb 0.2 % (0.0-3.9); FMetHb 0.3 % (0.0-1.5); FO2Hb 96.2 % (94-97); PATIENT TEMPERATURE 36.9; PEEP 5 cm H2O; RESPIRATORY RATE 12 b/min; TIDAL VOLUME 500 mL; TOTAL HEMOGLOBIN 11.7 G/dl (14.0-17.9)
[2022-02-18 03:12] LABS: BASOPHILS % (AUTO) 0.2 % (0-1); EOSINOPHILS # (AUTO) 0.1 X10'3 (0-0.9); EOSINOPHILS % (AUTO) 0.9 % (0-6); HEMATOCRIT 30.5 % (42.0-52.0); HEMOGLOBIN 10.2 g/dl (14.0-17.9); LYMPHOCYTES # (AUTO) 0.8 X10'3 (1.1-4.8); LYMPHOCYTES % (AUTO) 9.3 % (21-51); MEAN CORPUSCULAR HEMOGLOBIN 30.8 PG (27.0-31.0); MEAN CORPUSCULAR HGB CONC 33.5 g/dL (33.0-36.5); MEAN CORPUSCULAR VOLUME 92.1 FL (78-98); MEAN PLATELET VOLUME 11.4 FL (7.4-10.4); MONOCYTES % (AUTO) 11.6 % (2-12); PLATELET COUNT 103 X10'3 (140-440); RED BLOOD COUNT 3.31 X10'6 (4.70-6.10); RED CELL DISTRIBUTION WIDTH 13.7 % (11.5-14.5)
[2022-02-18 03:22] LABS: APTT 23 SECONDS (22-32)
[2022-02-18 03:29] LABS: ALANINE AMINOTRANSFERASE 67 U/L (12-78); ALBUMIN 2.3 G/DL (3.4-5.0); ALBUMIN/GLOBULIN RATIO 0.7 (1.1-1.5); ALKALINE PHOSPHATASE 65 IU/L (46-116); ANION GAP 2 (8-16); ASPARTATE AMINO TRANSFERASE 24 U/L (10-37); BILIRUBIN,TOTAL 0.8 MG/DL (0.1-1.0); BLOOD UREA NITROGEN 38 MG/DL (7-18); CALCIUM 8.3 MG/DL (8.5-10.1); CHLORIDE 101 MMOL/L (99-107); GLUCOSE 144 MG/DL (70-104); PHOSPHORUS 2.8 MG/DL (2.3-4.5); POTASSIUM 3.2 MMOL/L (3.5-5.1); SODIUM 140 MMOL/L (135-145); TOTAL CARBON DIOXIDE 37.5 MMOL/L (24-32); TOTAL PROTEIN 5.6 G/DL (6.4-8.2); VANCOMYCIN,RANDOM 10.1 UG/ML; eGFR 75 ML/MIN
[2022-02-18] MEDS: hydrALAZINE 20mg/ml inj. IV SCH ×6 (04:01→20:36)
[2022-02-18 04:15] LABS: NUCLEATED RED BLOOD CELLS 2 /100WBC (0-0); TOTAL CELLS COUNTED 100
[2022-02-18 04:17] LABS: PLATELET ESTIMATE DECREASED; POLYCHROMASIA FEW
[2022-02-18 04:19] LABS: LARGE PLATELETS FEW; TOXIC VACUOLATION 1+
[2022-02-18] MEDS: potassium CL 10mEq/100ml bag 100 ML IV PRN ×3 (04:27→23:10)
--- NOTE | 2022-02-18 06:09 | NUR ---
Problems reprioritized. Patient report given, questions answered & plan of care reviewed with Jefry MCGUIRE.
--- NOTE | 2022-02-18 06:30 | NUR ---
Patient in room CICU 2010. I have received report from MAYNOR Glass and had the opportunity to ask questions and assume patient care.
[2022-02-18] MEDS: pantoprazole 40MG/NS 100ML BAG 100 ML IV SCH (08:51)
[2022-02-18] MEDS: primidone 250mg tablet CORPAK SCH ×2 (08:51→20:35)
[2022-02-18] MEDS: busPIRone 5mg tablet CORPAK SCH ×3 (08:51→20:34)
[2022-02-18] MEDS: hydrocortisone sod succ/PF 100mg/2ml inj. IV SCH ×3 (08:51→16:45)
[2022-02-18] MEDS: oxybutynin 5mg tablet NG SCH ×2 (08:52→20:35)
[2022-02-18] MEDS: cholecalciferol (vitamin D3) 1,000 unit (25mcg) tablet CORPAK SCH (08:52)
[2022-02-18] MEDS: duloxetine 30mg CAPSULE.DR CORPAK SCH (08:53)
[2022-02-18] MEDS: heparin, porcine 5000 units/ml vial SQ SCH ×3 (08:55→16:46)
[2022-02-18] MEDS ORDERED: rocuronium 10mg/ml inj IV ONE (11:00)
[2022-02-18] MEDS ORDERED: vancomycin/NS 1 GM ADD-VANTAGE 250 ML X 1 DOSE IV SCH (11:00)
--- NOTE | 2022-02-18 11:16 | NUR ---
F/u 02/18: Pt remains intubated tolerating TF at goal GRV WNL. LBM 02/13 receiving routine MoM and colace; cleaner industrial agreeable to increase colace to BID given 5 days constipation. Will continue to monitor. Rec: 1. Continuous TF per MD using Vital AF at 65ml/hr; to provide 1560ml volume/day, 1872 kcals, 1265ml water, and 117g protein. 2. additional water flush 150ml Q4H 3. PALB Q /; daily wts 4. routine bowel care 5. upon extubation; advance diet per MERCHANDISE WORKER/MD to regular 6. once PO diet; consider pancreatic enzyme supplementation given hx chronic pancreatitis s/p Whipple procedure per EMR Addendum: 02/18/22 at [address] Amended: Links added.
[2022-02-18] MEDS: magnesium hydroxide 30ml (MOM) UD suspension CORPAK SCH (13:50)
[2022-02-18] MEDS: docusate sodium 100mg/10ml UD cup CORPAK SCH ×2 (13:50→20:34)
--- NOTE | 2022-02-18 18:30 | NUR ---
Problems reprioritized. Patient report given, questions answered & plan of care reviewed.
[2022-02-18] MEDS: POTASSIUM BICARB 20meq eff tab 20 MEQ TABLET.EFF CORPAK PRN (19:14)
[2022-02-18] MEDS: risperiDONE 2mg tablet CORPAK SCH (20:34)
[2022-02-18] MEDS: OLANZAPINE 5 MG TABLET CORPAK SCH (20:35)
--- NOTE | 2022-02-18 21:00 | NUR ---
Called and spoke with Dr Wilkerson in regards to blood sugar 74 and per protocol need to still give Humalog coverage and Lantus. Dr stated to hold Humalog and ok to proceed with 12 units Lantus. Also spoke with Dr Wilkerson in regards to pt getting doses of Effer K scheduled and some additional replacement and last potassium level 2.9 this afternoon. After going over notes, current meds, and lab, decided to change some orders. Dr Wilkerson gave new orders to dc Effer K and zaroxolyn, reduce lasix frequency to daily, start diamox tonight, change IV fluids to NS with 40mEQ K. He also gave order to replace KCL 10mEQ x6 doses but recheck after 4 doses with current potassium protocol. See orders for details.
[2022-02-18] MEDS: insulin glargine (Lantus) pen - multi-dose SQ SCH (21:20)
[2022-02-18] MEDS ORDERED: Potassium Cl inj 40 MEQ in normal saline 1000ml 980 ML IV SCH (21:40)
[2022-02-18] MEDS ORDERED: acetaZOLAMIDE 250mg tablet PO SCH (22:15)
[2022-02-18] MEDS ORDERED: acetaZOLAMIDE 500mg capsule.SA PO SCH (22:38)
[2022-02-18] MEDS: acetaZOLAMIDE 500mg capsule.SA PO SCH (23:24)
[2022-02-19] VITALS (31 sets, daily range): BP systolic 107–139; BP diastolic 48–63
--- NOTE | 2022-02-19 00:21 | NUR ---
RJ, pharmacist stated NS with 40mEQ not available and wondering if 1/2NS with 40mEQ was alright. Called and spoke with Dr Wilkerson about above noted availability of 1/2 NS with 40mEQ and not what was originally ordered. Dr iWlkerson gave new order for it. See order.
[2022-02-19] MEDS: potassium CL 10mEq/100ml bag 100 ML IV PRN ×6 (00:29→17:20)
[2022-02-19] MEDS: hydrocortisone sod succ/PF 100mg/2ml inj. IV SCH ×2 (00:29→06:59)
[2022-02-19] MEDS: heparin, porcine 5000 units/ml vial SQ SCH ×4 (00:30→23:45)
[2022-02-19] MEDS: hydrALAZINE 20mg/ml inj. IV SCH ×7 (00:31→23:44)
[2022-02-19] MEDS: piperacillin/tazo 3.375gm/50ml 50 ML IV SCH ×4 (00:31→23:45)
[2022-02-19] MEDS: Potassium Cl 40 MEQ in sodium chloride 0.45% 500 ML IV SCH (01:17)
[2022-02-19] MEDS: insulin regular, human U-100 3ml vial - multi-dose SQ SCH ×4 (02:20→20:38)
[2022-02-19] MEDS: metoprolol tartrate 25mg tablet CORPAK SCH ×4 (02:24→20:41)
[2022-02-19 03:44] LABS: ABG BASE EXCESS 11.3 mmol/L (-2.0-2.0); ABG HCO3 34.2 mmol/L (22.0-26.0); ABG OXYGEN SATURATION 96.7 % (94-97); ABG PCO2 (T) 39.5 mmHg (35.0-48.0); ABG PO2 (T) 94.1 mmHg (75.0-100.0); ALLEN'S TEST POSITIVE; FCOHb 0.1 % (0.0-3.9); FMetHb 0.3 % (0.0-1.5); FO2Hb 96.3 % (94-97); PATIENT TEMPERATURE 37.7; PEEP 5 cm H2O; RESPIRATORY RATE 12 b/min; TIDAL VOLUME 450 mL; TOTAL HEMOGLOBIN 10.3 G/dl (14.0-17.9)
[2022-02-19 03:44] LABS: BASOPHILS % (AUTO) 0.6 % (0-1); EOSINOPHILS % (AUTO) 0.3 % (0-6); HEMATOCRIT 29.1 % (42.0-52.0); HEMOGLOBIN 9.7 g/dl (14.0-17.9); LYMPHOCYTES # (AUTO) 0.7 X10'3 (1.1-4.8); LYMPHOCYTES % (AUTO) 11.3 % (21-51); MEAN CORPUSCULAR HEMOGLOBIN 30.8 PG (27.0-31.0); MEAN CORPUSCULAR HGB CONC 33.1 g/dL (33.0-36.5); MEAN PLATELET VOLUME 11.9 FL (7.4-10.4); MONOCYTES # (AUTO) 0.7 X10'3 (0-0.9); MONOCYTES % (AUTO) 11.7 % (2-12); NEUTROPHILS # (AUTO) 4.8 X10'3 (1.8-7.7); NEUTROPHILS % (AUTO) 76.1 % (42-75); PLATELET COUNT 85 X10'3 (140-440); RED BLOOD COUNT 3.13 X10'6 (4.70-6.10); WHITE BLOOD COUNT 6.4 X10'3 (4.5-11.0)
[2022-02-19 03:56] LABS: APTT 25 SECONDS (22-32)
[2022-02-19 03:57] LABS: ALANINE AMINOTRANSFERASE 91 U/L (12-78); ALBUMIN 2.4 G/DL (3.4-5.0); ALBUMIN/GLOBULIN RATIO 0.7 (1.1-1.5); ALKALINE PHOSPHATASE 53 IU/L (46-116); ANION GAP 4 (8-16); ASPARTATE AMINO TRANSFERASE 56 U/L (10-37); BILIRUBIN,TOTAL 0.8 MG/DL (0.1-1.0); BLOOD UREA NITROGEN 57 MG/DL (7-18); BUN/CREATININE RATIO 49.1 (5.4-32.0); CALCIUM 8.2 MG/DL (8.5-10.1); CHLORIDE 99 MMOL/L (99-107); CREATININE 1.16 MG/DL (0.60-1.10); GLUCOSE 186 MG/DL (70-104); MAGNESIUM 2.4 MG/DL (1.5-2.4); PHOSPHORUS 3.9 MG/DL (2.3-4.5); POTASSIUM 3.1 MMOL/L (3.5-5.1); SODIUM 143 MMOL/L (135-145); TOTAL CARBON DIOXIDE 39.8 MMOL/L (24-32); TOTAL PROTEIN 5.8 G/DL (6.4-8.2); eGFR 64 ML/MIN
--- NOTE | 2022-02-19 06:20 | NUR ---
Problems reprioritized. Patient report given, questions answered & plan of care reviewed with Jl. New bag of fentanyl given to Jl since still has approx 25ml left in current bag. Pt resting in bed and in no acute distress at time of handoff.
[2022-02-19] MEDS: fentaNYL 50mcg/ml PF inj. 2,500 MCG in normal saline 250ml IV soln 200 ML IV SCH (06:49)
[2022-02-19] MEDS: pantoprazole 40MG/NS 100ML BAG 100 ML IV SCH (06:59)
[2022-02-19] MEDS: docusate sodium 100mg/10ml UD cup CORPAK SCH ×2 (07:52→20:40)
[2022-02-19] MEDS: cholecalciferol (vitamin D3) 1,000 unit (25mcg) tablet CORPAK SCH (07:53)
[2022-02-19] MEDS: duloxetine 30mg CAPSULE.DR CORPAK SCH (07:53)
[2022-02-19] MEDS: oxybutynin 5mg tablet NG SCH ×2 (07:53→20:42)
[2022-02-19] MEDS: busPIRone 5mg tablet CORPAK SCH ×3 (07:54→20:42)
[2022-02-19] MEDS: primidone 250mg tablet CORPAK SCH (07:59)
[2022-02-19] MEDS: acetaZOLAMIDE 500mg capsule.SA PO SCH (08:00)
[2022-02-19] MEDS ORDERED: furosemide 20 MG/2 ML vial IV SCH (08:00)
[2022-02-19] MEDS: magnesium hydroxide 30ml (MOM) UD suspension CORPAK SCH (11:52)
[2022-02-19 17:12] LABS: ALANINE AMINOTRANSFERASE 86 U/L (12-78); ALBUMIN 2.6 G/DL (3.4-5.0); ALBUMIN/GLOBULIN RATIO 0.7 (1.1-1.5); ALKALINE PHOSPHATASE 53 IU/L (46-116); ANION GAP 8 (8-16); ASPARTATE AMINO TRANSFERASE 40 U/L (10-37); BILIRUBIN,TOTAL 0.7 MG/DL (0.1-1.0); BLOOD UREA NITROGEN 59 MG/DL (7-18); BUN/CREATININE RATIO 53.2 (5.4-32.0); CALCIUM 8.6 MG/DL (8.5-10.1); CHLORIDE 100 MMOL/L (99-107); CREATININE 1.11 MG/DL (0.60-1.10); GLUCOSE 110 MG/DL (70-104); SODIUM 141 MMOL/L (135-145); TOTAL PROTEIN 6.1 G/DL (6.4-8.2); eGFR 67 ML/MIN
[2022-02-19 17:16] LABS: POTASSIUM 2.5 MMOL/L (3.5-5.1)
[2022-02-19] MEDS: insulin glargine (Lantus) pen - multi-dose SQ SCH (20:39)
[2022-02-19] MEDS: POTASSIUM BICARB 20meq eff tab 20 MEQ TABLET.EFF PO SCH (20:42)
[2022-02-19] MEDS ORDERED: polyethylene glycol 3350 17gm powd pack PO SCH (21:00)
[2022-02-20] VITALS (34 sets, daily range): BP systolic 107–151; BP diastolic 50–81
[2022-02-20] MEDS: POTASSIUM BICARB 20meq eff tab 20 MEQ TABLET.EFF PO SCH ×2 (02:23→07:39)
[2022-02-20] MEDS: metoprolol tartrate 25mg tablet CORPAK SCH ×4 (02:24→20:26)
[2022-02-20] MEDS: dextrose 50%-water 50ml dispensing syringe IV PRN (02:24)
--- NOTE | 2022-02-20 02:52 | NUR ---
blood sugar 55 and repeated to 58 , patient on tube feeding , treated per protocol of 1/2 D 50 , blood sugar after 15 minutes is 75 , will held insulin for now and decrease it to level 4 .
[2022-02-20 03:24] LABS: ABG BASE EXCESS 5.4 mmol/L (-2.0-2.0); ABG HCO3 27.6 mmol/L (22.0-26.0); ABG OXYGEN SATURATION 95.6 % (94-97); ABG PCO2 (T) 31.2 mmHg (35.0-48.0); ABG PO2 (T) 75.3 mmHg (75.0-100.0); ALLEN'S TEST POSITIVE; FCOHb 0.2 % (0.0-3.9); FMetHb 0.3 % (0.0-1.5); FO2Hb 95.1 % (94-97); PATIENT TEMPERATURE 36.2; PEEP 5 cm H2O; RESPIRATORY RATE 12 b/min; TIDAL VOLUME 450 mL; TOTAL HEMOGLOBIN 11.1 G/dl (14.0-17.9)
[2022-02-20] MEDS: hydrALAZINE 20mg/ml inj. IV SCH ×6 (04:42→23:58)
[2022-02-20] MEDS: piperacillin/tazo 3.375gm/50ml 50 ML IV SCH ×3 (07:37→23:57)
[2022-02-20] MEDS: pantoprazole 40MG/NS 100ML BAG 100 ML IV SCH (07:38)
[2022-02-20] MEDS: docusate sodium 100mg/10ml UD cup CORPAK SCH ×2 (07:38→21:18)
[2022-02-20] MEDS: oxybutynin 5mg tablet NG SCH ×2 (07:38→20:25)
[2022-02-20] MEDS: cholecalciferol (vitamin D3) 1,000 unit (25mcg) tablet CORPAK SCH (07:39)
[2022-02-20] MEDS: busPIRone 5mg tablet CORPAK SCH ×3 (07:39→20:25)
[2022-02-20] MEDS: duloxetine 30mg CAPSULE.DR CORPAK SCH (07:40)
[2022-02-20] MEDS: heparin, porcine 5000 units/ml vial SQ SCH ×3 (07:42→23:57)
[2022-02-20 08:02] LABS: ALANINE AMINOTRANSFERASE 67 U/L (12-78); ALBUMIN 2.4 G/DL (3.4-5.0); ALBUMIN/GLOBULIN RATIO 0.7 (1.1-1.5); ALKALINE PHOSPHATASE 49 IU/L (46-116); ANION GAP 9 (8-16); ASPARTATE AMINO TRANSFERASE 36 U/L (10-37); BILIRUBIN,TOTAL 0.7 MG/DL (0.1-1.0); BLOOD UREA NITROGEN 56 MG/DL (7-18); BUN/CREATININE RATIO 56.6 (5.4-32.0); CALCIUM 8.4 MG/DL (8.5-10.1); CHLORIDE 99 MMOL/L (99-107); CREATININE 0.99 MG/DL (0.60-1.10); GLUCOSE 114 MG/DL (70-104); MAGNESIUM 2.3 MG/DL (1.5-2.4); PHOSPHORUS 3.1 MG/DL (2.3-4.5); POTASSIUM 3.7 MMOL/L (3.5-5.1); SODIUM 136 MMOL/L (135-145); TOTAL PROTEIN 5.8 G/DL (6.4-8.2); eGFR 76 ML/MIN
--- NOTE | 2022-02-20 09:08 | NUR ---
sedation vacation/ CPAP/PS 30%
[2022-02-20] MEDS: magnesium hydroxide 30ml (MOM) UD suspension CORPAK SCH (11:00)
[2022-02-20] MEDS: POTASSIUM BICARB 20meq eff tab 20 MEQ TABLET.EFF CORPAK SCH ×2 (13:27→20:26)
[2022-02-20] MEDS: Potassium Cl 40 MEQ in sodium chloride 0.45% 500 ML IV SCH (20:11)
[2022-02-20] MEDS: fentaNYL 50mcg/ml PF inj. 2,500 MCG in normal saline 250ml IV soln 200 ML IV SCH (20:11)
[2022-02-20] MEDS: polyethylene glycol 3350 17gm powd pack CORPAK SCH (20:28)
[2022-02-20] MEDS: insulin regular, human U-100 3ml vial - multi-dose SQ SCH (20:36)
[2022-02-20] MEDS: insulin glargine (Lantus) pen - multi-dose SQ SCH (20:37)
[2022-02-21] VITALS (37 sets, daily range): BP systolic 91–165; BP diastolic 41–100
[2022-02-21] MEDS: POTASSIUM BICARB 20meq eff tab 20 MEQ TABLET.EFF CORPAK SCH ×4 (02:21→20:18)
[2022-02-21] MEDS: metoprolol tartrate 25mg tablet CORPAK SCH ×4 (02:21→20:18)
[2022-02-21] MEDS: insulin regular, human U-100 3ml vial - multi-dose SQ SCH ×5 (02:23→20:33)
[2022-02-21 03:24] LABS: ABG BASE EXCESS 1.2 mmol/L (-2.0-2.0); ABG HCO3 22.6 mmol/L (22.0-26.0); ABG OXYGEN SATURATION 97.9 % (94-97); ALLEN'S TEST POSITIVE; FMetHb 0.3 % (0.0-1.5); FO2Hb 97.6 % (94-97); PEEP 5 cm H2O; RESPIRATORY RATE 12 b/min; TIDAL VOLUME 450 mL; TOTAL HEMOGLOBIN 10.9 G/dl (14.0-17.9)
[2022-02-21] MEDS: hydrALAZINE 20mg/ml inj. IV SCH ×6 (04:05→23:20)
--- NOTE | 2022-02-21 06:37 | NUR ---
Problems reprioritized. Patient report given, questions answered & plan of care reviewed with JIMMY MCGUIRE.
--- NOTE | 2022-02-21 07:00 | NUR ---
Patient in room CICU 2010. I have received report from MAYNOR Aragon and had the opportunity to ask questions and assume patient care. Pt is resting in bed with no signs of distress.
[2022-02-21] MEDS: piperacillin/tazo 3.375gm/50ml 50 ML IV SCH ×2 (07:28→17:09)
[2022-02-21] MEDS: pantoprazole 40MG/NS 100ML BAG 100 ML IV SCH (07:28)
[2022-02-21] MEDS: duloxetine 30mg CAPSULE.DR CORPAK SCH (07:29)
[2022-02-21] MEDS: oxybutynin 5mg tablet NG SCH ×2 (07:29→20:18)
[2022-02-21] MEDS: busPIRone 5mg tablet CORPAK SCH ×3 (07:29→20:19)
[2022-02-21] MEDS: docusate sodium 100mg/10ml UD cup CORPAK SCH ×2 (07:29→20:19)
[2022-02-21] MEDS: cholecalciferol (vitamin D3) 1,000 unit (25mcg) tablet CORPAK SCH (07:30)
[2022-02-21] MEDS: heparin, porcine 5000 units/ml vial SQ SCH ×2 (07:34→17:10)
[2022-02-21 08:39] LABS: BASOPHILS # (AUTO) 0.1 X10'3 (0-0.2); BASOPHILS % (AUTO) 0.3 % (0-1); EOSINOPHILS # (AUTO) 0.6 X10'3 (0-0.9); EOSINOPHILS % (AUTO) 2.7 % (0-6); HEMATOCRIT 29.7 % (42.0-52.0); HEMOGLOBIN 10.1 g/dl (14.0-17.9); LYMPHOCYTES % (AUTO) 9.1 % (21-51); MEAN CORPUSCULAR HEMOGLOBIN 31.4 PG (27.0-31.0); MEAN CORPUSCULAR VOLUME 92.2 FL (78-98); MONOCYTES # (AUTO) 1.3 X10'3 (0-0.9); MONOCYTES % (AUTO) 5.9 % (2-12); NEUTROPHILS # (AUTO) 18.1 X10'3 (1.8-7.7); PLATELET COUNT 120 X10'3 (140-440); RED BLOOD COUNT 3.22 X10'6 (4.70-6.10); RED CELL DISTRIBUTION WIDTH 13.8 % (11.5-14.5); WHITE BLOOD COUNT 22.1 X10'3 (4.5-11.0)
[2022-02-21 09:02] LABS: ALANINE AMINOTRANSFERASE 52 U/L (12-78); ALBUMIN 2.5 G/DL (3.4-5.0); ALBUMIN/GLOBULIN RATIO 0.7 (1.1-1.5); ALKALINE PHOSPHATASE 60 IU/L (46-116); ANION GAP 9 (8-16); ASPARTATE AMINO TRANSFERASE 24 U/L (10-37); BILIRUBIN,TOTAL 0.6 MG/DL (0.1-1.0); BLOOD UREA NITROGEN 41 MG/DL (7-18); BUN/CREATININE RATIO 53.9 (5.4-32.0); CALCIUM 8.3 MG/DL (8.5-10.1); CHLORIDE 102 MMOL/L (99-107); CREATININE 0.76 MG/DL (0.60-1.10); GLUCOSE 99 MG/DL (70-104); PHOSPHORUS 2.8 MG/DL (2.3-4.5); POTASSIUM 3.6 MMOL/L (3.5-5.1); SODIUM 135 MMOL/L (135-145); TOTAL CARBON DIOXIDE 24.2 MMOL/L (24-32); TOTAL PROTEIN 6.3 G/DL (6.4-8.2); eGFR > 90 ML/MIN
--- NOTE | 2022-02-21 09:38 | NUR ---
F/u 02/21: Pt remains intubated tolerating TF at goal GRV WNL. Per RN note, pt s/p D50 for Glu 55mg/dl at 02:52 AM 02/20 likely influenced by Lantus dosage increase from 12 to 14 units following hydrocortisone stoppage. LBM 02/20 large per RN this AM receiving routine bowel regimen. Will continue to monitor for further nutrition intervention needs. Rec: 1. Continuous TF per MD using Vital AF at 65ml/hr; to provide 1560ml volume/day, 1872 kcals, 1265ml water, and 117g protein. 2. additional water flush 150ml Q4H; monitor serum Na 3. PALB Q /; daily wts 4. routine bowel care 5. upon extubation; advance diet per TICKET PULLER/MD to regular 6. once PO diet; consider pancreatic enzyme supplementation given hx chronic pancreatitis s/p Whipple procedure per EMR Addendum: 02/21/22 at [address] Amended: Links added.
[2022-02-21] MEDS ORDERED: VANCOMYCIN LEVEL IV ONE (10:30)
--- NOTE | 2022-02-21 10:30 | NUR ---
Dr. Peterson at bedside. Had opportunites to ask questions regard interventions.
--- NOTE | 2022-02-21 10:39 | NUR ---
at bedside,Vent orders clarified, Continue VT 450, Concerns for asymetrical chest movement discussed with , flail chest concerns MD given new orders for CT scan. Orders for Spont mode trials as tolerated per MD. Addendum: 02/21/22 at 1041 by Tisha Cook RT Amended: Links added.
[2022-02-21] MEDS ORDERED: propofol 1000mg/100ml bottle 100 ML IV ONE ×2 (10:48→13:50)
--- NOTE | 2022-02-21 11:15 | NUR ---
Patient to have central line placed required 50mg Rocuronium IVP and Propofol gtt initiated @ 50 Mcg/kg/hr
--- NOTE | 2022-02-21 12:00 | NUR ---
Patient to CT of chest RT @ bedside, RN @ bedside for transport
[2022-02-21] MEDS: magnesium hydroxide 30ml (MOM) UD suspension CORPAK SCH (13:20)
[2022-02-21 13:59] LABS: NUCLEATED RED BLOOD CELLS 3 /100WBC (0-0); PLATELET ESTIMATE DECREASED; TOTAL CELLS COUNTED 100
[2022-02-21 14:01] LABS: LARGE PLATELETS FEW; POLYCHROMASIA FEW
[2022-02-21] MEDS: polyethylene glycol 3350 17gm powd pack CORPAK SCH (20:19)
[2022-02-21] MEDS: insulin glargine (Lantus) pen - multi-dose SQ SCH (20:36)
[2022-02-21] MEDS: NORMAL SALINE IV SCH (20:37)
[2022-02-21] MEDS: FENTANYL IV SCH (20:37)
[2022-02-22] VITALS (36 sets, daily range): BP systolic 136–216; BP diastolic 61–91
--- NOTE | 2022-02-22 | NUR ---
RN Note -MD Communication Called Redd Wilkerson regarding pt is anxious and agitated, reaching for tubes, tachypneic and tachycardic. Orders received.
[2022-02-22] MEDS: heparin, porcine 5000 units/ml vial SQ SCH ×3 (00:43→15:50)
[2022-02-22] MEDS: piperacillin/tazo 3.375gm/50ml 50 ML IV SCH ×3 (00:43→15:49)
[2022-02-22] MEDS: DEXMEDETOMIDINE IN 0.9 % NACL 50 ML IV SCH ×3 (00:44→07:28)
[2022-02-22 01:56] LABS: BASOPHILS % (AUTO) 0 % (0-1); EOSINOPHILS # (AUTO) 0.4 X10'3 (0-0.9); EOSINOPHILS % (AUTO) 2.2 % (0-6); LYMPHOCYTES # (AUTO) 1.2 X10'3 (1.1-4.8); LYMPHOCYTES % (AUTO) 6.9 % (21-51); MEAN CORPUSCULAR HEMOGLOBIN 31.1 PG (27.0-31.0); MEAN CORPUSCULAR HGB CONC 33.1 g/dL (33.0-36.5); MEAN CORPUSCULAR VOLUME 93.8 FL (78-98); MEAN PLATELET VOLUME 11.4 FL (7.4-10.4); MONOCYTES # (AUTO) 1.1 X10'3 (0-0.9); MONOCYTES % (AUTO) 6.3 % (2-12); NEUTROPHILS # (AUTO) 14.2 X10'3 (1.8-7.7); NEUTROPHILS % (AUTO) 84.6 % (42-75); PLATELET COUNT 134 X10'3 (140-440); RED BLOOD COUNT 2.88 X10'6 (4.70-6.10); RED CELL DISTRIBUTION WIDTH 13.8 % (11.5-14.5); WHITE BLOOD COUNT 16.8 X10'3 (4.5-11.0)
[2022-02-22] MEDS: POTASSIUM BICARB 20meq eff tab 20 MEQ TABLET.EFF CORPAK SCH ×2 (02:00→09:25)
[2022-02-22] MEDS: metoprolol tartrate 25mg tablet CORPAK SCH ×2 (02:00→09:25)
[2022-02-22 02:07] LABS: ALANINE AMINOTRANSFERASE 43 U/L (12-78); ALBUMIN 2.4 G/DL (3.4-5.0); ALBUMIN/GLOBULIN RATIO 0.7 (1.1-1.5); ALKALINE PHOSPHATASE 55 IU/L (46-116); ANION GAP 7 (8-16); ASPARTATE AMINO TRANSFERASE 27 U/L (10-37); BILIRUBIN,TOTAL 0.5 MG/DL (0.1-1.0); BLOOD UREA NITROGEN 34 MG/DL (7-18); BUN/CREATININE RATIO 49.3 (5.4-32.0); CALCIUM 8.3 MG/DL (8.5-10.1); CHLORIDE 102 MMOL/L (99-107); CREATININE 0.69 MG/DL (0.60-1.10); GLUCOSE 96 MG/DL (70-104); PHOSPHORUS 2.7 MG/DL (2.3-4.5); POTASSIUM 3.6 MMOL/L (3.5-5.1); SODIUM 137 MMOL/L (135-145); TOTAL CARBON DIOXIDE 27.8 MMOL/L (24-32); eGFR > 90 ML/MIN
[2022-02-22 03:03] LABS: PLATELET ESTIMATE DECREASED
[2022-02-22 03:04] LABS: LARGE PLATELETS MODERATE
[2022-02-22 03:23] LABS: ABG HCO3 24.7 mmol/L (22.0-26.0); ABG OXYGEN SATURATION 97.4 % (94-97); ABG PCO2 (T) 30.3 mmHg (35.0-48.0); ABG PO2 (T) 96.3 mmHg (75.0-100.0); ALLEN'S TEST POSITIVE; FCOHb 0.3 % (0.0-3.9); FMetHb 0.3 % (0.0-1.5); FO2Hb 96.8 % (94-97); PATIENT TEMPERATURE 36.2; PEEP 5 cm H2O; RESPIRATORY RATE 12 b/min; TIDAL VOLUME 450 mL
[2022-02-22] MEDS: insulin regular, human U-100 3ml vial - multi-dose SQ SCH ×4 (03:31→21:39)
[2022-02-22] MEDS: FENTANYL IV SCH ×3 (04:19→20:45)
[2022-02-22] MEDS: NORMAL SALINE IV SCH ×3 (04:19→20:45)
[2022-02-22] MEDS: hydrALAZINE 20mg/ml inj. IV SCH ×5 (04:25→20:48)
--- NOTE | 2022-02-22 06:00 | NUR ---
Patient in room CICU 2010. I have received report from Mac RN and had the opportunity to ask questions and assume patient care.
[2022-02-22] MEDS: labetalol 20mg/4ml (5mg/ml) syringe IV PRN (07:20)
[2022-02-22] MEDS: docusate sodium 100mg/10ml UD cup CORPAK SCH (09:23)
[2022-02-22] MEDS: pantoprazole 40MG/NS 100ML BAG 100 ML IV SCH (09:23)
[2022-02-22] MEDS: duloxetine 30mg CAPSULE.DR CORPAK SCH (09:24)
[2022-02-22] MEDS: oxybutynin 5mg tablet NG SCH (09:26)
[2022-02-22] MEDS: busPIRone 5mg tablet CORPAK SCH (09:26)
[2022-02-22] MEDS: cholecalciferol (vitamin D3) 1,000 unit (25mcg) tablet CORPAK SCH (09:26)
[2022-02-22] MEDS ORDERED: acetaminophen 325mg/10.15ml oral unit dose solution OGT PRN ×2 (11:17→11:19)
[2022-02-22] MEDS ORDERED: DEXTROSE 15 GM of carb/4 tabs (each vial/BOTTLE has 4 tablets) OGT PRN ×2 (11:19→11:20)
[2022-02-22] MEDS: propofol 1000mg/100ml bottle 100 ML IV SCH ×3 (11:23→20:46)
[2022-02-22] MEDS: busPIRone 5mg tablet OGT SCH ×2 (12:32→20:47)
--- NOTE | 2022-02-22 13:05 | NUR ---
Received report from MAYONR Khan. I agree with her charting and physical assessment of this patient.
[2022-02-22] MEDS: POTASSIUM BICARB 20meq eff tab 20 MEQ TABLET.EFF OGT SCH ×2 (14:20→20:47)
[2022-02-22] MEDS: metoprolol tartrate 25mg tablet OGT SCH ×2 (14:21→20:46)
[2022-02-22 17:28] LABS: TRIGLYCERIDES 54 MG/DL (20-135)
--- NOTE | 2022-02-22 17:55 | NUR ---
Called Dr. Peterson regarding the patient's potassium going from 3.6 to 4.0 after the 40 mEq of effer-k. He stated that he doesn't want to skip the 2000 dose of potassium due to the patient's metabolic alkalosis. He stated to give the 2000 dose but hold the 0200 dose.
--- NOTE | 2022-02-22 18:12 | NUR ---
Problems reprioritized. Patient report given, questions answered & plan of care reviewed with MAYNOR Solano.
--- NOTE | 2022-02-22 18:30 | NUR ---
I have received report and assumed care of a 61 year old male who was admitted on 02/12 for aspiration secondary to chocking on a hotdog, who became profoundly hypoxic requiring mechanical ventilation. Pt Coded 4 times in the emergency department. Pt has a known history of HTN, COPD, Cerebral Palsy, DM, BPH, anxiety and depression. Pt is currently on a ventilator, Propofol in place for sedation to keep Rass -2 or better, Fentanyl drip in pace to keep Pain 3 or better. Lowest dose of bother are in use. Simpson catheter in place to gravity. Tube feedings in place for nutritional support.Rt chest wall chest tube in place minimal drainage noted, small amount of crepitus note around the chest tube area, this is reported unchanged for a number of days.
[2022-02-22] MEDS: docusate sodium 100mg/10ml UD cup OGT SCH (20:45)
[2022-02-22] MEDS: oxybutynin 5mg tablet OGT SCH (20:47)
[2022-02-22] MEDS: polyethylene glycol 3350 17gm powd pack OGT SCH (20:48)
[2022-02-22] MEDS: insulin glargine (Lantus) pen - multi-dose SQ SCH (21:37)
[2022-02-23] VITALS (32 sets, daily range): BP systolic 120–191; BP diastolic 49–77
[2022-02-23] MEDS: piperacillin/tazo 3.375gm/50ml 50 ML IV SCH ×3 (00:26→16:31)
[2022-02-23] MEDS: hydrALAZINE 20mg/ml inj. IV SCH ×6 (00:26→21:03)
[2022-02-23] MEDS: heparin, porcine 5000 units/ml vial SQ SCH ×3 (00:27→16:31)
[2022-02-23] MEDS: POTASSIUM BICARB 20meq eff tab 20 MEQ TABLET.EFF OGT SCH ×5 (02:00→21:07)
[2022-02-23 02:25] LABS: BASOPHILS # (AUTO) 0.1 X10'3 (0-0.2); BASOPHILS % (AUTO) 0.6 % (0-1); EOSINOPHILS # (AUTO) 0.4 X10'3 (0-0.9); EOSINOPHILS % (AUTO) 3.1 % (0-6); HEMATOCRIT 24.8 % (42.0-52.0); HEMOGLOBIN 8.2 g/dl (14.0-17.9); LYMPHOCYTES # (AUTO) 1.3 X10'3 (1.1-4.8); LYMPHOCYTES % (AUTO) 10.6 % (21-51); MEAN CORPUSCULAR HEMOGLOBIN 30.9 PG (27.0-31.0); MEAN CORPUSCULAR HGB CONC 33.1 g/dL (33.0-36.5); MEAN CORPUSCULAR VOLUME 93.4 FL (78-98); MONOCYTES # (AUTO) 0.9 X10'3 (0-0.9); NEUTROPHILS # (AUTO) 9.7 X10'3 (1.8-7.7); NEUTROPHILS % (AUTO) 78.7 % (42-75); PLATELET COUNT 141 X10'3 (140-440); RED BLOOD COUNT 2.66 X10'6 (4.70-6.10); RED CELL DISTRIBUTION WIDTH 13.9 % (11.5-14.5); WHITE BLOOD COUNT 12.3 X10'3 (4.5-11.0)
[2022-02-23] MEDS: insulin regular, human U-100 3ml vial - multi-dose SQ SCH ×6 (02:27→21:12)
[2022-02-23] MEDS: metoprolol tartrate 25mg tablet OGT SCH ×4 (02:31→21:04)
[2022-02-23 02:35] LABS: APTT 26 SECONDS (22-32)
[2022-02-23 02:47] LABS: ANION GAP 5 (8-16); BLOOD UREA NITROGEN 31 MG/DL (7-18); CHLORIDE 101 MMOL/L (99-107); GLUCOSE 152 MG/DL (70-104); POTASSIUM 3.6 MMOL/L (3.5-5.1); SODIUM 133 MMOL/L (135-145); TOTAL CARBON DIOXIDE 26.7 MMOL/L (24-32)
[2022-02-23 02:48] LABS: ALANINE AMINOTRANSFERASE 41 U/L (12-78); ALBUMIN 2.1 G/DL (3.4-5.0); ALBUMIN/GLOBULIN RATIO 0.6 (1.1-1.5); ALKALINE PHOSPHATASE 53 IU/L (46-116); ASPARTATE AMINO TRANSFERASE 28 U/L (10-37); BILIRUBIN,TOTAL 0.4 MG/DL (0.1-1.0); BUN/CREATININE RATIO 44.3 (5.4-32.0); CALCIUM 7.9 MG/DL (8.5-10.1); MAGNESIUM 2.1 MG/DL (1.5-2.4); PHOSPHORUS 2.7 MG/DL (2.3-4.5); TOTAL PROTEIN 5.9 G/DL (6.4-8.2); TRIGLYCERIDES 73 MG/DL (20-135); eGFR > 90 ML/MIN
[2022-02-23 03:46] LABS: ABG BASE EXCESS -0.2 mmol/L (-2.0-2.0); ABG HCO3 22.3 mmol/L (22.0-26.0); ABG OXYGEN SATURATION 96.9 % (94-97); ABG PO2 (T) 88.3 mmHg (75.0-100.0); ALLEN'S TEST POSITIVE; FCOHb 0.1 % (0.0-3.9); FMetHb 0.3 % (0.0-1.5); FO2Hb 96.5 % (94-97); PATIENT TEMPERATURE 36.5; PEEP 5 cm H2O; RESPIRATORY RATE 12 b/min; TIDAL VOLUME 450 mL; TOTAL HEMOGLOBIN 9.2 G/dl (14.0-17.9)
[2022-02-23] MEDS: magnesium hydroxide 30ml (MOM) UD suspension OGT SCH (08:44)
[2022-02-23] MEDS: docusate sodium 100mg/10ml UD cup OGT SCH ×2 (08:45→21:03)
[2022-02-23] MEDS: busPIRone 5mg tablet OGT SCH ×3 (08:45→21:04)
[2022-02-23] MEDS: duloxetine 30mg CAPSULE.DR OGT SCH (08:46)
[2022-02-23] MEDS: cholecalciferol (vitamin D3) 1,000 unit (25mcg) tablet OGT SCH (08:46)
[2022-02-23] MEDS: oxybutynin 5mg tablet OGT SCH ×2 (08:47→21:03)
[2022-02-23] MEDS: pantoprazole 40MG/NS 100ML BAG 100 ML IV SCH (09:11)
[2022-02-23] MEDS: FENTANYL IV SCH (16:45)
[2022-02-23] MEDS: NORMAL SALINE IV SCH (16:45)
--- NOTE | 2022-02-23 18:38 | NUR ---
Patient in room CICU 2010. I have received report from Elieser MCGUIRE and had the opportunity to ask questions and assume patient care.
[2022-02-23] MEDS: polyethylene glycol 3350 17gm powd pack OGT SCH (21:04)
[2022-02-23] MEDS: insulin glargine (Lantus) pen - multi-dose SQ SCH (21:11)
[2022-02-24] VITALS (33 sets, daily range): BP systolic 92–156; BP diastolic 54–109
[2022-02-24] MEDS: piperacillin/tazo 3.375gm/50ml 50 ML IV SCH ×4 (00:03→23:41)
[2022-02-24] MEDS: heparin, porcine 5000 units/ml vial SQ SCH ×4 (00:04→23:41)
[2022-02-24] MEDS: hydrALAZINE 20mg/ml inj. IV SCH ×6 (00:19→20:00)
[2022-02-24] MEDS: POTASSIUM BICARB 20meq eff tab 20 MEQ TABLET.EFF OGT SCH ×4 (02:14→20:01)
[2022-02-24] MEDS: metoprolol tartrate 25mg tablet OGT SCH ×4 (02:29→20:00)
[2022-02-24] MEDS: insulin regular, human U-100 3ml vial - multi-dose SQ SCH (02:31)
[2022-02-24 02:54] LABS: BASOPHILS # (AUTO) 0.1 X10'3 (0-0.2); BASOPHILS % (AUTO) 0.3 % (0-1); EOSINOPHILS # (AUTO) 0.3 X10'3 (0-0.9); EOSINOPHILS % (AUTO) 1.6 % (0-6); HEMATOCRIT 27.2 % (42.0-52.0); HEMOGLOBIN 8.8 g/dl (14.0-17.9); LYMPHOCYTES # (AUTO) 1.4 X10'3 (1.1-4.8); LYMPHOCYTES % (AUTO) 6.9 % (21-51); MEAN CORPUSCULAR HEMOGLOBIN 30.5 PG (27.0-31.0); MEAN CORPUSCULAR HGB CONC 32.3 g/dL (33.0-36.5); MEAN CORPUSCULAR VOLUME 94.5 FL (78-98); MEAN PLATELET VOLUME 10.6 FL (7.4-10.4); MONOCYTES # (AUTO) 1.4 X10'3 (0-0.9); MONOCYTES % (AUTO) 7.2 % (2-12); NEUTROPHILS # (AUTO) 16.8 X10'3 (1.8-7.7); PLATELET COUNT 249 X10'3 (140-440); RED BLOOD COUNT 2.88 X10'6 (4.70-6.10); RED CELL DISTRIBUTION WIDTH 14.7 % (11.5-14.5)
[2022-02-24 03:05] LABS: APTT 26 SECONDS (22-32)
[2022-02-24 03:07] LABS: ALANINE AMINOTRANSFERASE 42 U/L (12-78); ALBUMIN 2.3 G/DL (3.4-5.0); ALBUMIN/GLOBULIN RATIO 0.6 (1.1-1.5); ALKALINE PHOSPHATASE 64 IU/L (46-116); ANION GAP 7 (8-16); ASPARTATE AMINO TRANSFERASE 32 U/L (10-37); BILIRUBIN,TOTAL 0.5 MG/DL (0.1-1.0); BLOOD UREA NITROGEN 27 MG/DL (7-18); BUN/CREATININE RATIO 42.9 (5.4-32.0); CALCIUM 8.3 MG/DL (8.5-10.1); CHLORIDE 102 MMOL/L (99-107); CREATININE 0.63 MG/DL (0.60-1.10); GLUCOSE 93 MG/DL (70-104); MAGNESIUM 2.1 MG/DL (1.5-2.4); PHOSPHORUS 1.9 MG/DL (2.3-4.5); POTASSIUM 3.7 MMOL/L (3.5-5.1); SODIUM 136 MMOL/L (135-145); TOTAL CARBON DIOXIDE 27.2 MMOL/L (24-32); TOTAL PROTEIN 6.3 G/DL (6.4-8.2); TRIGLYCERIDES 62 MG/DL (20-135); eGFR > 90 ML/MIN
[2022-02-24 03:21] LABS: ABG BASE EXCESS 1.9 mmol/L (-2.0-2.0); ABG HCO3 24.1 mmol/L (22.0-26.0); ABG OXYGEN SATURATION 97.6 % (94-97); ABG PCO2 (T) 29.7 mmHg (35.0-48.0); ABG PO2 (T) 100.7 mmHg (75.0-100.0); ALLEN'S TEST POSITIVE; FCOHb 0.1 % (0.0-3.9); FMetHb 0.3 % (0.0-1.5); FO2Hb 97.2 % (94-97); PATIENT TEMPERATURE 37.3; PEEP 5 cm H2O; RESPIRATORY RATE 12 b/min; TIDAL VOLUME 450 mL; TOTAL HEMOGLOBIN 9.6 G/dl (14.0-17.9)
[2022-02-24 03:47] LABS: LARGE PLATELETS MODERATE; PLATELET ESTIMATE NORMAL
[2022-02-24] MEDS: sodium phosphate inj. 15 MMOL in dextrose 5%-water 250 ML IV PRN (04:01)
[2022-02-24] MEDS: FENTANYL IV SCH ×2 (05:14→13:39)
[2022-02-24] MEDS: NORMAL SALINE IV SCH ×2 (05:14→13:39)
--- NOTE | 2022-02-24 06:26 | NUR ---
Problems reprioritized. Patient report given, questions answered & plan of care reviewed with Shantel MCGUIRE.
--- NOTE | 2022-02-24 06:40 | NUR ---
Patient in room [facility] 2010. I have received report from Nohemi MCGUIRE and had the opportunity to ask questions and assume patient care. Addendum: 02/24/22 at 0640 by Shantel Mendez RN Amended: Links added.
[2022-02-24] MEDS: pantoprazole 40MG/NS 100ML BAG 100 ML IV SCH (07:25)
[2022-02-24] MEDS: oxybutynin 5mg tablet OGT SCH ×2 (07:28→20:01)
[2022-02-24] MEDS: busPIRone 5mg tablet OGT SCH ×3 (07:32→20:01)
[2022-02-24] MEDS: docusate sodium 100mg/10ml UD cup OGT SCH ×2 (08:00→20:00)
[2022-02-24] MEDS: cholecalciferol (vitamin D3) 1,000 unit (25mcg) tablet OGT SCH (08:00)
[2022-02-24] MEDS: duloxetine 30mg CAPSULE.DR OGT SCH (08:00)
--- NOTE | 2022-02-24 10:36 | NUR ---
Dr. Dickey obtained phone consent from Ann MOREAU for trach and peg placement. RN witnessed consent.
[2022-02-24] MEDS: propofol 1000mg/100ml bottle 100 ML IV SCH ×2 (10:55→23:42)
[2022-02-24] MEDS: magnesium hydroxide 30ml (MOM) UD suspension OGT SCH (11:00)
--- NOTE | 2022-02-24 11:38 | NUR ---
F/u 02/24: Pt remains intubated currently NPO pending trach/PEG today per RN at rounds. LBM 02/20 large receiving routine colace, miralax, and MoM per EMR. Phos 1.9mg/dl receiving replacement per protocol. Will monitor for EN restart and tolerance following PEG placement. Rec: 1. Continuous TF per MD using Vital AF at 65ml/hr; to provide 1560ml volume/day, 1872 kcals, 1265ml water, and 117g protein. 2. additional water flush 150ml Q4H; monitor serum Na 3. PALB Q /; daily wts 4. routine bowel care; 4 days constipation 5. upon extubation; advance diet per DYE TUB TENDER/MD to regular 6. once PO diet; consider pancreatic enzyme supplementation given hx chronic pancreatitis s/p Whipple procedure per EMR Addendum: 02/24/22 at [address] Amended: Links added.
--- NOTE | 2022-02-24 12:22 | NUR ---
PICC RN here to place PICC. RN called and discussed need for PICC versus midline. Decided to place midline. Will keep CVL in place for OR and dc later.
--- NOTE | 2022-02-24 13:24 | NUR ---
PICC MAYNOR Cuadra attempted to place midline without success. Will attempt again tomorrow.
[2022-02-24] MEDS ORDERED: rocuronium 10mg/ml inj IV ONE (14:59)
--- NOTE | 2022-02-24 15:07 | NUR ---
OR crew here to take pt. to OR.
[2022-02-24] MEDS ORDERED: midazolam 1 mg/ML 2ml injection ONE (15:21)
--- NOTE | 2022-02-24 17:37 | NUR ---
RN received phone report from Dorothy (LOAN CLERK). Pt. got perc. trach and laparotomy for peg tube placement. On Levophed now.
[2022-02-24] MEDS ORDERED: morphine 2 MG/ML inj. syringe IV PRN (17:50)
--- NOTE | 2022-02-24 18:21 | NUR ---
Pt. to room 2011 from OR. Hooked up to monitor. Report given to EUGENE Fung.
[2022-02-24] MEDS: polyethylene glycol 3350 17gm powd pack OGT SCH (20:01)
[2022-02-24] MEDS: insulin glargine (Lantus) pen - multi-dose SQ SCH (20:03)
[2022-02-25] VITALS (34 sets, daily range): BP systolic 95–141; BP diastolic 27–108
[2022-02-25] MEDS: metoprolol tartrate 25mg tablet OGT SCH ×4 (02:00→19:45)
[2022-02-25] MEDS: POTASSIUM BICARB 20meq eff tab 20 MEQ TABLET.EFF OGT SCH ×4 (02:00→19:43)
[2022-02-25 02:16] LABS: BASOPHILS # (AUTO) 0.1 X10'3 (0-0.2); BASOPHILS % (AUTO) 0.5 % (0-1); EOSINOPHILS # (AUTO) 0.1 X10'3 (0-0.9); EOSINOPHILS % (AUTO) 0.6 % (0-6); HEMATOCRIT 27.4 % (42.0-52.0); HEMOGLOBIN 8.9 g/dl (14.0-17.9); LYMPHOCYTES # (AUTO) 0.7 X10'3 (1.1-4.8); LYMPHOCYTES % (AUTO) 3.2 % (21-51); MEAN CORPUSCULAR HEMOGLOBIN 30.5 PG (27.0-31.0); MEAN CORPUSCULAR HGB CONC 32.4 g/dL (33.0-36.5); MEAN CORPUSCULAR VOLUME 94.2 FL (78-98); MEAN PLATELET VOLUME 9.8 FL (7.4-10.4); MONOCYTES # (AUTO) 1.1 X10'3 (0-0.9); MONOCYTES % (AUTO) 5.3 % (2-12); NEUTROPHILS # (AUTO) 18.7 X10'3 (1.8-7.7); NEUTROPHILS % (AUTO) 90.4 % (42-75); PLATELET COUNT 306 X10'3 (140-440); RED BLOOD COUNT 2.91 X10'6 (4.70-6.10); RED CELL DISTRIBUTION WIDTH 15.1 % (11.5-14.5); WHITE BLOOD COUNT 20.7 X10'3 (4.5-11.0)
[2022-02-25 02:26] LABS: APTT 26 SECONDS (22-32)
[2022-02-25 02:27] LABS: ALANINE AMINOTRANSFERASE 37 U/L (12-78); ALBUMIN 2.4 G/DL (3.4-5.0); ALBUMIN/GLOBULIN RATIO 0.6 (1.1-1.5); ALKALINE PHOSPHATASE 72 IU/L (46-116); ANION GAP 11 (8-16); ASPARTATE AMINO TRANSFERASE 40 U/L (10-37); BILIRUBIN,TOTAL 0.8 MG/DL (0.1-1.0); BLOOD UREA NITROGEN 28 MG/DL (7-18); BUN/CREATININE RATIO 35.4 (5.4-32.0); CALCIUM 8.1 MG/DL (8.5-10.1); CHLORIDE 102 MMOL/L (99-107); CREATININE 0.79 MG/DL (0.60-1.10); GLUCOSE 96 MG/DL (70-104); MAGNESIUM 2.1 MG/DL (1.5-2.4); PHOSPHORUS 3.7 MG/DL (2.3-4.5); POTASSIUM 3.6 MMOL/L (3.5-5.1); SODIUM 137 MMOL/L (135-145); TOTAL CARBON DIOXIDE 24.2 MMOL/L (24-32); TOTAL PROTEIN 6.4 G/DL (6.4-8.2); TRIGLYCERIDES 100 MG/DL (20-135); eGFR > 90 ML/MIN
[2022-02-25 03:38] LABS: ABG BASE EXCESS -0.3 mmol/L (-2.0-2.0); ABG HCO3 21.3 mmol/L (22.0-26.0); ABG OXYGEN SATURATION 97.8 % (94-97); ABG PCO2 (T) 24.9 mmHg (35.0-48.0); ABG PO2 (T) 105.2 mmHg (75.0-100.0); FCOHb 0.5 % (0.0-3.9); FMetHb 0.3 % (0.0-1.5); PEEP 5 cm H2O; RESPIRATORY RATE 12 b/min; TIDAL VOLUME 450 mL; TOTAL HEMOGLOBIN 9.3 G/dl (14.0-17.9)
[2022-02-25] MEDS: hydrALAZINE 20mg/ml inj. IV SCH ×6 (04:00→19:45)
[2022-02-25] MEDS: piperacillin/tazo 3.375gm/50ml 50 ML IV SCH ×2 (07:48→15:45)
[2022-02-25] MEDS: pantoprazole 40MG/NS 100ML BAG 100 ML IV SCH (07:48)
[2022-02-25] MEDS: NORMAL SALINE IV SCH ×3 (07:50→22:55)
[2022-02-25] MEDS: FENTANYL IV SCH ×3 (07:50→22:55)
[2022-02-25] MEDS: docusate sodium 100mg/10ml UD cup OGT SCH ×2 (07:52→19:44)
[2022-02-25] MEDS: cholecalciferol (vitamin D3) 1,000 unit (25mcg) tablet OGT SCH (07:52)
[2022-02-25] MEDS: busPIRone 5mg tablet OGT SCH ×3 (07:52→20:15)
[2022-02-25] MEDS: heparin, porcine 5000 units/ml vial SQ SCH ×2 (07:53→15:46)
[2022-02-25] MEDS: oxybutynin 5mg tablet OGT SCH ×2 (07:53→19:44)
[2022-02-25] MEDS: duloxetine 30mg CAPSULE.DR OGT SCH (07:54)
[2022-02-25] MEDS: magnesium hydroxide 30ml (MOM) UD suspension OGT SCH (14:33)
[2022-02-25] MEDS: propofol 1000mg/100ml bottle 100 ML IV SCH (18:46)
[2022-02-25] MEDS: polyethylene glycol 3350 17gm powd pack OGT SCH (20:15)
[2022-02-25] MEDS: insulin regular, human U-100 3ml vial - multi-dose SQ SCH (20:17)
[2022-02-25] MEDS: insulin glargine (Lantus) pen - multi-dose SQ SCH (20:17)
[2022-02-26] VITALS (16 sets, daily range): BP systolic 97–138; BP diastolic 47–71
[2022-02-26] MEDS: heparin, porcine 5000 units/ml vial SQ SCH ×2 (00:23→09:04)
[2022-02-26] MEDS: metoprolol tartrate 25mg tablet OGT SCH ×2 (02:00→09:05)
[2022-02-26] MEDS: POTASSIUM BICARB 20meq eff tab 20 MEQ TABLET.EFF OGT SCH ×2 (02:18→09:05)
[2022-02-26] MEDS: insulin regular, human U-100 3ml vial - multi-dose SQ SCH ×2 (02:25→10:01)
[2022-02-26 02:27] LABS: BASOPHILS # (AUTO) 0.1 X10'3 (0-0.2); BASOPHILS % (AUTO) 0.7 % (0-1); EOSINOPHILS # (AUTO) 0.3 X10'3 (0-0.9); HEMOGLOBIN 7.2 g/dl (14.0-17.9); LYMPHOCYTES # (AUTO) 0.8 X10'3 (1.1-4.8); LYMPHOCYTES % (AUTO) 9.8 % (21-51); MEAN CORPUSCULAR HGB CONC 34.3 g/dL (33.0-36.5); MEAN CORPUSCULAR VOLUME 93.3 FL (78-98); MEAN PLATELET VOLUME 8.7 FL (7.4-10.4); MONOCYTES % (AUTO) 11.6 % (2-12); NEUTROPHILS # (AUTO) 6.4 X10'3 (1.8-7.7); NEUTROPHILS % (AUTO) 74.9 % (42-75); PLATELET COUNT 261 X10'3 (140-440); RED BLOOD COUNT 2.26 X10'6 (4.70-6.10); RED CELL DISTRIBUTION WIDTH 14.5 % (11.5-14.5); WHITE BLOOD COUNT 8.6 X10'3 (4.5-11.0)
[2022-02-26 02:29] LABS: ABG BASE EXCESS 2.2 mmol/L (-2.0-2.0); ABG HCO3 25.1 mmol/L (22.0-26.0); ABG OXYGEN SATURATION 96.4 % (94-97); ABG PCO2 (T) 32.1 mmHg (35.0-48.0); ABG PO2 (T) 88.6 mmHg (75.0-100.0); ALLEN'S TEST POSITIVE; FCOHb 0.4 % (0.0-3.9); FMetHb 0.1 % (0.0-1.5); FO2Hb 95.9 % (94-97); PATIENT TEMPERATURE 37.5; PEEP 5 cm H2O; RESPIRATORY RATE 12 b/min; TIDAL VOLUME 450 mL; TOTAL HEMOGLOBIN 7.6 G/dl (14.0-17.9)
[2022-02-26 02:38] LABS: HEMATOCRIT 21.1 % (42.0-52.0)
[2022-02-26 02:42] LABS: APTT 27 SECONDS (22-32)
[2022-02-26 02:50] LABS: ALANINE AMINOTRANSFERASE 38 U/L (12-78); ALBUMIN 2.1 G/DL (3.4-5.0); ALBUMIN/GLOBULIN RATIO 0.6 (1.1-1.5); ALKALINE PHOSPHATASE 68 IU/L (46-116); ANION GAP 7 (8-16); ASPARTATE AMINO TRANSFERASE 31 U/L (10-37); BILIRUBIN,TOTAL 0.5 MG/DL (0.1-1.0); BLOOD UREA NITROGEN 22 MG/DL (7-18); BUN/CREATININE RATIO 32.4 (5.4-32.0); CALCIUM 7.6 MG/DL (8.5-10.1); CHLORIDE 107 MMOL/L (99-107); CREATININE 0.68 MG/DL (0.60-1.10); GLUCOSE 157 MG/DL (70-104); MAGNESIUM 2.1 MG/DL (1.5-2.4); PHOSPHORUS 1.6 MG/DL (2.3-4.5); POTASSIUM 3.8 MMOL/L (3.5-5.1); SODIUM 140 MMOL/L (135-145); TOTAL CARBON DIOXIDE 25.6 MMOL/L (24-32); TOTAL PROTEIN 5.8 G/DL (6.4-8.2); eGFR > 90 ML/MIN
[2022-02-26] MEDS: hydrALAZINE 20mg/ml inj. IV SCH ×3 (04:00→09:03)
[2022-02-26] MEDS ORDERED: fentaNYL/PF inj 2,500 MCG in normal saline 250ml IV soln 200 ML IV SCH (05:00)
[2022-02-26] MEDS: duloxetine 30mg CAPSULE.DR OGT SCH (08:00)
[2022-02-26] MEDS ORDERED: CITALOpram 10mg tablet PO SCH (08:00)
[2022-02-26] MEDS: cholecalciferol (vitamin D3) 1,000 unit (25mcg) tablet OGT SCH (09:05)
[2022-02-26] MEDS: busPIRone 5mg tablet OGT SCH (09:06)
[2022-02-26] MEDS: oxybutynin 5mg tablet OGT SCH (09:07)
[2022-02-26] MEDS: docusate sodium 100mg/10ml UD cup OGT SCH (09:28)
[2022-02-26] MEDS: pantoprazole 40MG/NS 100ML BAG 100 ML IV SCH (09:39)
[2022-02-26] MEDS ORDERED: HYDROmorphone 1 mg/ml syringe IV PRN ×2 (11:05)
--- NOTE | 2022-02-26 14:35 | NUR ---
0900, Patient assessed, continues to weep from arms, incision to midline abdomen closed with shaquille, peg tube functioning well. pt will squeeze hands for yes or no, difficult to get to engage, very despondent, celso Greenberg at bedside. Plan is for transfer to [facility] at 1100. Discontinued CVL after Picc nurse placed IV. All belongings home with celso Greenberg. 1130- Patient transferred to [facility].
== END 2022-02-26 11:30 | DRG 4 ==
LOC: ER 23:23 → ED HOLD 02-12 11:35 → CICU 2S 02-12 11:57
PROVIDERS: ADMIT Internal Medicine Critical Care Medicine; ATTEND Internal Medicine Critical Care Medicine
PROC: 5A1955Z Respiratory Ventilation, Greater than 96 Consecutive Hours (ICD-10-PCS; principal; 2022-02-12)
PROC: 5A12012 Performance of Cardiac Output, Single, Manual (ICD-10-PCS; 2022-02-12)
PROC: 0BH17EZ Insertion of Endotracheal Airway into Trachea, Via Natural or Artificial Opening (ICD-10-PCS; 2022-02-12)
PROC: B32T1ZZ Computerized Tomography (CT Scan) of Left Pulmonary Artery using Low Osmolar Contrast (ICD-10-PCS; 2022-02-12)
PROC: B3201ZZ Computerized Tomography (CT Scan) of Thoracic Aorta using Low Osmolar Contrast (ICD-10-PCS; 2022-02-12)
PROC: B32S1ZZ Computerized Tomography (CT Scan) of Right Pulmonary Artery using Low Osmolar Contrast (ICD-10-PCS; 2022-02-12)
PROC: 5A09357 Assistance with Respiratory Ventilation, Less than 24 Consecutive Hours, Continuous Positive Airway Pressure (ICD-10-PCS; 2022-02-12)
PROC: 02HV33Z Insertion of Infusion Device into Superior Vena Cava, Percutaneous Approach (ICD-10-PCS; 2022-02-12)
PROC: 0W9940Z Drainage of Right Pleural Cavity with Drainage Device, Percutaneous Endoscopic Approach (ICD-10-PCS; 2022-02-12)
PROC: 04HY32Z Insertion of Monitoring Device into Lower Artery, Percutaneous Approach (ICD-10-PCS; 2022-02-12)
PROC: 4A133B1 Monitoring of Arterial Pressure, Peripheral, Percutaneous Approach (ICD-10-PCS; 2022-02-12)
PROC: 4A133J1 Monitoring of Arterial Pulse, Peripheral, Percutaneous Approach (ICD-10-PCS; 2022-02-12)
PROC: 0BC78ZZ Extirpation of Matter from Left Main Bronchus, Via Natural or Artificial Opening Endoscopic (ICD-10-PCS; 2022-02-12)
PROC: 3E02340 Introduction of Influenza Vaccine into Muscle, Percutaneous Approach (ICD-10-PCS; 2022-02-16)
PROC: 02HV33Z Insertion of Infusion Device into Superior Vena Cava, Percutaneous Approach (ICD-10-PCS; 2022-02-21)
PROC: 0B113F4 Bypass Trachea to Cutaneous with Tracheostomy Device, Percutaneous Approach (ICD-10-PCS; 2022-02-24)
PROC: 0DNW0ZZ Release Peritoneum, Open Approach (ICD-10-PCS; 2022-02-24)
PROC: 0DH60UZ Insertion of Feeding Device into Stomach, Open Approach (ICD-10-PCS; 2022-02-24)
DX: A41.9 Sepsis, unspecified organism (principal); I46.9 Cardiac arrest, cause unspecified; R65.21 Severe sepsis with septic shock; G93.40 Encephalopathy, unspecified; J15.0 Pneumonia due to Klebsiella pneumoniae; T17.508A Unspecified foreign body in bronchus causing other injury, initial encounter; T79.7XXA Traumatic subcutaneous emphysema, initial encounter; J93.82 Other air leak; J80 Acute respiratory distress syndrome; J44.0 Chronic obstructive pulmonary disease with (acute) lower respiratory infection; N17.9 Acute kidney failure, unspecified; J93.9 Pneumothorax, unspecified; E11.9 Type 2 diabetes mellitus without complications; Z20.822 Contact with and (suspected) exposure to COVID-19; F32.A Depression, unspecified; R77.8 Other specified abnormalities of plasma proteins; R74.01 Elevation of levels of liver transaminase levels; E87.6 Hypokalemia; E87.70 Fluid overload, unspecified; F41.9 Anxiety disorder, unspecified; G89.29 Other chronic pain; I10 Essential (primary) hypertension; E87.3 Alkalosis; K66.0 Peritoneal adhesions (postprocedural) (postinfection); G80.9 Cerebral palsy, unspecified; K86.1 Other chronic pancreatitis; N40.0 Benign prostatic hyperplasia without lower urinary tract symptoms; Z53.31 Laparoscopic surgical procedure converted to open procedure; Z87.442 Personal history of urinary calculi; Z87.891 Personal history of nicotine dependence; Z90.411 Acquired partial absence of pancreas; Z90.49 Acquired absence of other specified parts of digestive tract; Z23 Encounter for immunization; Z88.8 Allergy status to other drugs, medicaments and biological substances; Z79.899 Other long term (current) drug therapy; T50.2X5A Adverse effect of carbonic-anhydrase inhibitors, benzothiadiazides and other diuretics, initial encounter; Y92.230 Patient room in hospital as the place of occurrence of the external cause
CPT/HCPCS: 31500; 31635; 31645; 36410; 36415; 36556; 36600; 70450; 71045; 71250; 71275; 76937; 80053; 80202; 82803; 82948; 83036; 83605; 83735; 83880; 84100; 84132; 84134; 84478; 84484; 85007; 85008; 85018; 85025; 85610; 85730; 87070; 87077; 87081; 87186; 87635; 87811; 93005; 93306; 94002; 94003; 94640; 94760; 94799; 97110; 97161; 97530; 97535; 99291; 99292; A4215; A4333; A4340; A4349; A4618; A4623; A4628; A6154; A6196; A6209; A6212; A6213; A6222; A6223; A6250; A6253; A6258; A6402; A6446; A6449; A7000; A7521; A7526; A9900; B4087; C1751; C1894; C9113; G0378; J0171; J0360; J1170; J1610; J1644; J1720; J1815; J1940; J2250; J2270; J2543; J2704; J3010; J3370; J3475; J3480; J3490; J7030; J7040; J7050; J7060; J7070; P9047; Q9967

== ENCOUNTER 2022-04-18 16:45 | Emergency (ER) | payer MEDICAID ==
[~2022-04-18] VITALS: Ht 170.2 cm; Wt 56.0 kg
[~2022-04-18 16:45] MED LIST changes: +ALB0.5UD NEB; -ALBU8HFA IH; +BUSP10TA10 PO; -BUSP15TA3 PO; -LACT1CAP26 PO; +LIDO700A47 TOP; -LORA10CA PO; -LURA40TA2 PO; +MEGE400O6 PO; -MORP-92 PO; +OLAN5TAB75 PO; -OMEP20CA16 PO; +OMEP40CA21 PO; +PRIM250T8 PO; -PROP10TA10 PO; -TRAZ-256 PO
[2022-04-18 17:53] LABS: BASOPHILS % (AUTO) 0.7 % (0-1); EOSINOPHILS # (AUTO) 0.6 X10'3 (0-0.9); EOSINOPHILS % (AUTO) 8.9 % (0-6); HEMATOCRIT 38.2 % (42.0-52.0); HEMOGLOBIN 12.6 g/dl (14.0-17.9); LYMPHOCYTES # (AUTO) 1.2 X10'3 (1.1-4.8); LYMPHOCYTES % (AUTO) 17.8 % (21-51); MEAN CORPUSCULAR HEMOGLOBIN 30.1 PG (27.0-31.0); MEAN CORPUSCULAR HGB CONC 33.1 g/dL (33.0-36.5); MEAN PLATELET VOLUME 8.5 FL (7.4-10.4); MONOCYTES # (AUTO) 0.6 X10'3 (0-0.9); MONOCYTES % (AUTO) 7.9 % (2-12); NEUTROPHILS # (AUTO) 4.5 X10'3 (1.8-7.7); NEUTROPHILS % (AUTO) 64.7 % (42-75); PLATELET COUNT 330 X10'3 (140-440); RED CELL DISTRIBUTION WIDTH 12.8 % (11.5-14.5)
[2022-04-18 18:00] LABS: ALANINE AMINOTRANSFERASE 27 U/L (12-78); ALBUMIN 2.9 G/DL (3.4-5.0); ALBUMIN/GLOBULIN RATIO 0.6 (1.1-1.5); ALKALINE PHOSPHATASE 152 IU/L (46-116); ANION GAP 4 (8-16); ASPARTATE AMINO TRANSFERASE 26 U/L (10-37); BILIRUBIN,TOTAL 0.2 MG/DL (0.1-1.0); BLOOD UREA NITROGEN 14 MG/DL (7-18); BUN/CREATININE RATIO 21.5 (5.4-32.0); CALCIUM 9.3 MG/DL (8.5-10.1); CHLORIDE 102 MMOL/L (99-107); CREATININE 0.65 MG/DL (0.60-1.10); GLUCOSE 91 MG/DL (70-104); LIPASE < 50 U/L (73-393); SODIUM 137 MMOL/L (135-145); TOTAL CARBON DIOXIDE 30.7 MMOL/L (24-32); TOTAL PROTEIN 8.1 G/DL (6.4-8.2); eGFR > 90 ML/MIN
[2022-04-18] MEDS ORDERED: fentaNYL/PF 50MCG/1 ML 2ML syringe IV ONE (18:20)
[2022-04-18] MEDS ORDERED: ondansetron/PF 4mg/2ml inj IV ONE (18:20)
[2022-04-18] MEDS ORDERED: normal saline 1000ML IV soln IVB ONE (18:20)
[2022-04-18] MEDS ORDERED: clindamycin 300mg/D5W 50mL 50 ML IV ONE (18:20)
[2022-04-18] MEDS ORDERED: iohexol 300mg/ml 100ml inj. ONE (18:26)
[2022-04-18] MEDS ORDERED: morphine 4 MG/ML inj SYRINge IV ONE ×2 (20:20→22:10)
[2022-04-18 20:42] LABS: CLARITY,URINE CLEAR (Clear); COLOR,URINE YELLOW (Yellow); GLUCOSE, URINE NEGATIVE (Neg); KETONES,URINE NEGATIVE (Neg); LEUKOCYTE ESTERASE ,URINE NEGATIVE (Neg); NITRITES, URINE NEGATIVE (Neg); OCCULT BLOOD,URINE NEGATIVE (Neg); PROTEIN,URINE NEGATIVE (Neg); UROBILINOGEN,URINE 0.2 E.U/dL (0.2-1.0)
[2022-04-18 20:47] LABS: UA COLLECTION TYPE VOIDED
[2022-04-18] MEDS ORDERED: methylnaltrexone br 12mg/0.6ml inj***SubQ only SQ ONE (21:00)
[2022-04-18] MEDS ORDERED: CLIN150C8 PO (21:04)
--- NOTE | 2022-04-18 21:17 | NUR ---
Pt incontinent. Pt cleaned and new brief applied. Pt to be discharged home as soon as fluids are complete.
[2022-04-18 22:26] VITALS: BP 100/67
== END 2022-04-18 22:41 | disposition home or self-care (01) ==
LOC: ER 16:46
DX: R10.84 Generalized abdominal pain (principal); K31.89 Other diseases of stomach and duodenum; I10 Essential (primary) hypertension; J44.9 Chronic obstructive pulmonary disease, unspecified; E11.9 Type 2 diabetes mellitus without complications; G89.29 Other chronic pain; F41.9 Anxiety disorder, unspecified; F32.A Depression, unspecified; Z87.01 Personal history of pneumonia (recurrent); Z87.442 Personal history of urinary calculi; Z90.89 Acquired absence of other organs; Z90.49 Acquired absence of other specified parts of digestive tract; Z98.890 Other specified postprocedural states; Z72.89 Other problems related to lifestyle; Z88.8 Allergy status to other drugs, medicaments and biological substances; Z88.1 Allergy status to other antibiotic agents; Z79.899 Other long term (current) drug therapy
CPT/HCPCS: 36415; 74177; 80053; 81003; 83690; 85025; 96361; 96365; 96372; 96375; 96376; 99285; J2212; J2270; J2405; J3010; J3490; J7030; Q9967; A6258; A6449

== ENCOUNTER 2022-05-10 03:35 | Inpatient (IN) | payer MEDICAID ==
[~2022-05-10] VITALS: Ht 170.2 cm; Wt 50.9 kg
[~2022-05-10 03:35] MED LIST changes: +CLIN150C8 PO
[2022-05-10] MEDS ORDERED: azithromycin/NS 500mg/250ml 250 ML IV ONE (03:40)
[2022-05-10] MEDS ORDERED: ipratropium/albuterol 3ml nebule NEB ONE (03:40)
[2022-05-10] MEDS ORDERED: methylPREDNISolone sod succ 125mg/2ml vial IV ONE (03:40)
[2022-05-10] MEDS ORDERED: normal saline 1000ML IV soln IVB ONE ×2 (03:40→05:45)
[2022-05-10] MEDS ORDERED: oxyCODONE/APAP 5-325mg tablet PO STA (04:07)
--- NOTE | 2022-05-10 04:08 | NUR ---
finger probes will not register, ear probe not a good pleth RT said he is 98 %
[2022-05-10] MEDS ORDERED: ipratropium/albuterol 3ml nebule NEB PRN (04:15)
[2022-05-10 04:40] LABS: BASOPHILS % (AUTO) 0.5 % (0-1); EOSINOPHILS # (AUTO) 0.9 X10'3 (0-0.9); EOSINOPHILS % (AUTO) 10.6 % (0-6); HEMATOCRIT 43.2 % (42.0-52.0); HEMOGLOBIN 14.3 g/dl (14.0-17.9); MEAN CORPUSCULAR HEMOGLOBIN 30.4 PG (27.0-31.0); MEAN CORPUSCULAR HGB CONC 33.1 g/dL (33.0-36.5); MEAN CORPUSCULAR VOLUME 91.6 FL (78-98); MEAN PLATELET VOLUME 11.5 FL (7.4-10.4); MONOCYTES # (AUTO) 0.5 X10'3 (0-0.9); MONOCYTES % (AUTO) 5.7 % (2-12); NEUTROPHILS # (AUTO) 6.5 X10'3 (1.8-7.7); NEUTROPHILS % (AUTO) 72.2 % (42-75); PLATELET COUNT 133 X10'3 (140-440); RED BLOOD COUNT 4.72 X10'6 (4.70-6.10); RED CELL DISTRIBUTION WIDTH 14.5 % (11.5-14.5); WHITE BLOOD COUNT 8.9 X10'3 (4.5-11.0)
[2022-05-10 05:42] LABS: ALANINE AMINOTRANSFERASE 33 U/L (12-78); ALBUMIN 2.8 G/DL (3.4-5.0); ALBUMIN/GLOBULIN RATIO 0.7 (1.1-1.5); ALKALINE PHOSPHATASE 102 IU/L (46-116); ANION GAP 6 (8-16); ASPARTATE AMINO TRANSFERASE 23 U/L (10-37); BILIRUBIN,TOTAL 0.2 MG/DL (0.1-1.0); BLOOD UREA NITROGEN 12 MG/DL (7-18); BUN/CREATININE RATIO 18.2 (5.4-32.0); CALCIUM 8.4 MG/DL (8.5-10.1); CHLORIDE 106 MMOL/L (99-107); CREATININE 0.66 MG/DL (0.60-1.10); GLUCOSE 173 MG/DL (70-104); POTASSIUM 3.3 MMOL/L (3.5-5.1); SODIUM 140 MMOL/L (135-145); TOTAL CARBON DIOXIDE 28.3 MMOL/L (24-32); TOTAL PROTEIN 6.9 G/DL (6.4-8.2); eGFR > 90 ML/MIN
[2022-05-10] MEDS ORDERED: fentaNYL/PF 50MCG/1 ML 2ML syringe IV ONE (05:50)
[2022-05-10] MEDS: normal saline 1000ml 1,000 ML IV SCH ×2 (06:13→08:10)
[2022-05-10 07:05] LABS: LARGE PLATELETS MODERATE; PLATELET ESTIMATE DECREASED; ROULEAUX 1+
[2022-05-10] MEDS ORDERED: NORepinephrine 8mg/ 250ml NS 250 ML IV SCH (07:20)
[2022-05-10] MEDS ORDERED: CefTRIAXone/D5W-Rocephin 1gm 50 ML IV ONE (08:00)
[2022-05-10] MEDS ORDERED: vancomycin/NS 1 GM ADD-VANTAGE 250 ML IV ONE (08:00)
--- NOTE | 2022-05-10 08:50 | NUR ---
CVP monitoring initiated at this time.
--- NOTE | 2022-05-10 10:20 | NUR ---
relieving RN for break, pt is resting quietly on gurney, caregiver at bedside. Dr Peterson at bedside to evaluate pt, gave verbal order to dc levophed at BP was elevated, 1 liter NS bolus, plan to downgrade pt to PCU. Pt is asking for pain med, Dr Peterson aware
[2022-05-10] MEDS ORDERED: normal saline 1000ml 1,000 ML IV SCH ×2 (10:30→11:45)
[2022-05-10] MEDS ORDERED: normal saline 1000ml 1,000 ML IV ONE (10:30)
[2022-05-10] MEDS: oxyCODONE/APAP 5-325mg tablet PO PRN ×3 (10:47→23:12)
[2022-05-10] MEDS ORDERED: magnesium 4gm in 100ml NS 100 ML IV PRN (11:45)
[2022-05-10] MEDS ORDERED: HYDROcodone/acetaminophen 5mg/325mg tablet PO PRN (11:45)
[2022-05-10] MEDS ORDERED: magnesium Cl slow-release 64mg tablet PO PRN (11:45)
[2022-05-10] MEDS ORDERED: acetaminophen 325mg tablet PO PRN ×4 (11:45→12:25)
[2022-05-10] MEDS ORDERED: potassium Cl 20 mEq SR tablet PO PRN ×2 (11:45)
[2022-05-10] MEDS ORDERED: ondansetron/PF 4mg/2ml inj IV PRN ×2 (11:45→12:25)
[2022-05-10] MEDS ORDERED: potassium Cl 40MEQ/1/2NS 520ml 520 ML IV PRN (11:45)
[2022-05-10] MEDS: morphine 2 MG/ML inj. syringe IV PRN ×2 (12:12→17:39)
[2022-05-10] MEDS ORDERED: LIDOcaine 2% 10ml TOPICAL JELLY (Urojet) TP ONE (12:25)
[2022-05-10] MEDS ORDERED: magnesium hydroxide 30ml (MOM) UD suspension PO PRN (12:25)
[2022-05-10] MEDS ORDERED: POTASSIUM BICARB 20meq eff tab 20 MEQ TABLET.EFF PO PRN ×2 (12:25)
[2022-05-10] MEDS ORDERED: oxyCODONE/APAP 5-325mg tablet PO ONE (13:00)
[2022-05-10 13:27] LABS: OXYGEN SATURATION (MIXED VEN) 65.5 % (60-80); PO2 MIXED VENOUS (TEMP COR) 32.4 mmHg (35-46)
[2022-05-10] MEDS ORDERED: VENL75TA4 PO (14:01)
[2022-05-10] MEDS ORDERED: PER5325T PO (14:01)
[2022-05-10] MEDS ORDERED: MIRT-87 PO (14:01)
[2022-05-10] MEDS ORDERED: SENN-263 PO (14:01)
[2022-05-10] MEDS ORDERED: PANT40GR PO (14:01)
[2022-05-10] MEDS ORDERED: PREG300C19 PO (14:01)
[2022-05-10] MEDS ORDERED: Potassium Cl 40 MEQ in sodium chloride 0.45% 500 ML IV ONE (14:05)
[2022-05-10] MEDS: methylPREDNISolone sod succ 125mg/2ml vial IV SCH ×2 (14:07→20:05)
[2022-05-10] MEDS: ipratropium/albuterol 3ml nebule NEB SCH ×3 (15:20→23:15)
[2022-05-10] MEDS ORDERED: guaiFENesin/DM/phenylephrine syrup 120ml bottle PO PRN (17:00)
[2022-05-10] MEDS: benzonatate 100mg capsule PO PRN (17:07)
[2022-05-10] MEDS: heparin, porcine 5000 units/ml vial SQ SCH ×2 (17:09→23:12)
[2022-05-10 17:13] VITALS: BP 127/80
[2022-05-10 18:00] VITALS: BP 150/94
--- NOTE | 2022-05-10 18:31 | NUR ---
pulled norco to give pt - wasted half dose per [facility]. pt wanted percocet instead of norco. RN unable to waste half of norco in [facility]. documented in MAR that half dose was not given and was wasted. verified with pharmacy that this was the appropriate procedure.
[2022-05-10] MEDS: guaiFENesin/DM 10ml UD oral syrup PO PRN (18:50)
[2022-05-10] MEDS ORDERED: heparin, porcine 5000 units/ml vial SQ SCH (20:00)
[2022-05-10] MEDS ORDERED: temazepam 15mg capsule PO PRN (21:00)
[2022-05-11 02:00] VITALS: BP 146/86
[2022-05-11] MEDS: methylPREDNISolone sod succ 125mg/2ml vial IV SCH ×2 (02:00→03:14)
[2022-05-11] MEDS: morphine 2 MG/ML inj. syringe IV PRN ×4 (02:51→15:49)
[2022-05-11] MEDS: ipratropium/albuterol 3ml nebule NEB SCH ×4 (02:54→15:57)
[2022-05-11] MEDS: oxyCODONE/APAP 5-325mg tablet PO PRN ×2 (05:16→11:02)
[2022-05-11 06:00] VITALS: BP 149/83
[2022-05-11 06:20] LABS: ALANINE AMINOTRANSFERASE 28 U/L (12-78); ALBUMIN 3.1 G/DL (3.4-5.0); ALBUMIN/GLOBULIN RATIO 0.7 (1.1-1.5); ALKALINE PHOSPHATASE 98 IU/L (46-116); ANION GAP 7 (8-16); ASPARTATE AMINO TRANSFERASE 25 U/L (10-37); BASOPHILS % (AUTO) 0.1 % (0-1); BILIRUBIN,TOTAL 0.3 MG/DL (0.1-1.0); BLOOD UREA NITROGEN 16 MG/DL (7-18); BUN/CREATININE RATIO 20.5 (5.4-32.0); CALCIUM 8.8 MG/DL (8.5-10.1); CHLORIDE 105 MMOL/L (99-107); CREATININE 0.78 MG/DL (0.60-1.10); EOSINOPHILS % (AUTO) 0 % (0-6); GLUCOSE 124 MG/DL (70-104); HEMATOCRIT 32.6 % (42.0-52.0); HEMOGLOBIN 11.3 g/dl (14.0-17.9); LYMPHOCYTES # (AUTO) 0.5 X10'3 (1.1-4.8); LYMPHOCYTES % (AUTO) 9.9 % (21-51); MAGNESIUM 1.8 MG/DL (1.5-2.4); MEAN CORPUSCULAR HEMOGLOBIN 30.7 PG (27.0-31.0); MEAN CORPUSCULAR HGB CONC 34.7 g/dL (33.0-36.5); MEAN CORPUSCULAR VOLUME 88.4 FL (78-98); MEAN PLATELET VOLUME 10.9 FL (7.4-10.4); MONOCYTES # (AUTO) 0.1 X10'3 (0-0.9); NEUTROPHILS # (AUTO) 4.7 X10'3 (1.8-7.7); PLATELET COUNT 108 X10'3 (140-440); POTASSIUM 3.9 MMOL/L (3.5-5.1); RED BLOOD COUNT 3.68 X10'6 (4.70-6.10); RED CELL DISTRIBUTION WIDTH 13.6 % (11.5-14.5); SODIUM 136 MMOL/L (135-145); TOTAL CARBON DIOXIDE 24.1 MMOL/L (24-32); TOTAL PROTEIN 7.4 G/DL (6.4-8.2); WHITE BLOOD COUNT 5.3 X10'3 (4.5-11.0); eGFR > 90 ML/MIN
[2022-05-11] MEDS: HYDROcodone/acetaminophen 5mg/325mg tablet PO PRN ×2 (07:39→13:48)
[2022-05-11] MEDS: benzonatate 100mg capsule PO PRN (07:39)
[2022-05-11] MEDS: guaiFENesin/DM 10ml UD oral syrup PO PRN (07:39)
[2022-05-11] MEDS ORDERED: CefTRIAXone 2gm/D5W 50ml BAG 50 ML IV SCH (08:00)
[2022-05-11] MEDS ORDERED: azithromycin/NS 500mg/250ml 250 ML IV SCH (08:00)
[2022-05-11] MEDS ORDERED: K and/or MAG REPLACEMENT MC SCH (08:00)
[2022-05-11] MEDS: heparin, porcine 5000 units/ml vial SQ SCH ×2 (08:00→16:00)
[2022-05-11 08:22] LABS: BASOPHILS % (AUTO) 0.1 % (0-1); EOSINOPHILS % (AUTO) 0 % (0-6); HEMATOCRIT 35.7 % (42.0-52.0); HEMOGLOBIN 11.9 g/dl (14.0-17.9); LYMPHOCYTES # (AUTO) 0.6 X10'3 (1.1-4.8); LYMPHOCYTES % (AUTO) 10.8 % (21-51); MEAN CORPUSCULAR HEMOGLOBIN 29.8 PG (27.0-31.0); MEAN CORPUSCULAR HGB CONC 33.3 g/dL (33.0-36.5); MEAN CORPUSCULAR VOLUME 89.6 FL (78-98); MEAN PLATELET VOLUME 11.3 FL (7.4-10.4); MONOCYTES # (AUTO) 0.1 X10'3 (0-0.9); MONOCYTES % (AUTO) 2.4 % (2-12); NEUTROPHILS # (AUTO) 4.6 X10'3 (1.8-7.7); NEUTROPHILS % (AUTO) 86.7 % (42-75); PLATELET COUNT 121 X10'3 (140-440); RED BLOOD COUNT 3.99 X10'6 (4.70-6.10); WHITE BLOOD COUNT 5.3 X10'3 (4.5-11.0)
[2022-05-11 08:47] LABS: LARGE PLATELETS FEW; PLATELET ESTIMATE DECREASED
--- NOTE | 2022-05-11 09:03 | NUR ---
paged Dr. Ardon re; Pt c/o severe lower back pain unrelieved with current pain medications. can we change pain medication doses or add something? t
--- NOTE | 2022-05-11 09:39 | NUR ---
re-paged Dr. Ardon re: Pt is again asking for something additional for pain. pt c/o severe lower back pain unrelieved with current pain medications.
--- NOTE | 2022-05-11 09:53 | NUR ---
re-paged Dr. Ardon re: Pt is requesting you come to bedside and states you did not address pain medication with him. still asking for something additional for pain.
[2022-05-11] MEDS ORDERED: methylPREDNISolone sod succ 125mg/2ml vial IV SCH (10:15)
[2022-05-11] MEDS ORDERED: morphine 2 MG/ML inj. syringe IV PRN (10:15)
[2022-05-11 11:48] VITALS: BP 156/96
[2022-05-11] MEDS ORDERED: iohexol 300mg/ml 100ml inj. ONE (12:56)
--- NOTE | 2022-05-11 12:58 | NUR ---
paged Dr. Ardon re: Can we get one time dose of ativan for CT scan? don't think pt will be able to tolerate it.
[2022-05-11] MEDS ORDERED: busPIRone 5mg tablet PO SCH (13:00)
[2022-05-11] MEDS ORDERED: pregabalin 75mg capsule PO SCH (13:00)
[2022-05-11] MEDS ORDERED: LORazepam 2 mg/ml vial IV ONE (13:05)
--- NOTE | 2022-05-11 15:07 | NUR ---
Malnutrition Consult: Pt admit DX R PNA, hypokalemia, and COPD exacerbation per EMR. Pt reports wt loss though no specific amount w/ decreased intake per RN Malnutrition Screen. Pt pertinent hx dysphagia, cerebral palsy w/ intellect intact, Grant's esophagus, and Whipple procedure. Pt hx recent trach/PEG March 10 after requiring intubation following near asphyxiation on hot dog w/ non-compliance to prior pureed/nectar thick RATING OFFICER recs May 10. Pt/caregiver seen by RD at bedside to review home EN/PO regimen as pt reports can eat whatever he wants despite dysphagia hx per MD note. Per caregiver, pt uses two 250ml cartons of Isosource 1.5 if "doesn't eat" though no specifics regarding home PO trends; this would only meet ~52% protein/~46% kcal minimum estimated needs. Pt reports uses 400ml free water flushes daily at home per MD note. RD contacted [facility] dietitian Amanda at [phone] to review pt nutrition regimen and wt hx as no scaled yet this admit. Per Amanda [facility] GUILLERMINA, pt was on TwoCal HN boluses TID if PO meals <50% w/ additional 60ml free water before/after bolus though pt PO intake slowly improving prior to discharge in March. Per Amanda, last RATING OFFICER BSS at [facility] 03/11/2022 recommended pureed/thin liquids diet without straws unfortunately no accurate wt hx at [facility]. RD confronted pt about RATING OFFICER recs, pt reports does not want any texture modifications nor follows any at home acknowledging risk. RD notified MD recommend RATING OFFICER BSS this admit and notified RATING OFFICER of pt preferences to refuse modifications; pending BSS at this time. Since pt caregiver reports using Isosource 1.5 at home and [facility] RD reports used TwoCal HN, RD contacted [facility] dietitian Juliet [phone] for home regimen. Per Juliet, pt was on TwoCal HTN one carton TID though product shortage so changed to 4 cans/day of Isosource 1.5 in interim if PO <50% meals w/ additional water flush to vary based on PO trends. RD d/w CM, RN, and MD discrepancies between pt home regimen per Chance SARMIENTO and reported intake from pt/caregiver unsure if compliant w/ home EN recs. Per MD, pt does report limiting PEG intake and prefers oral intake though at risk for further respiratory issues w/ non-compliance to texture modifications. MD is agreeable to additional oral kcals/protein options w/ meals given pt reported PO preference w/ TF to not start at this time though will resume home EN regimen per Chance after discharge. Per MD, if CT results normal will discharge today. Dietary notified will send soft to chew foods, no straws, and thickened magic cup shake made w/ thickened milk WS tonight for oral kcal supplementation. Given lack of any accurate nutrition intake hx, scaled wt hx, or wt loss hx w/ no edema/wounds and persistent underweight status at baseline given cerebral palsy hx pt currently lacks minimum malnutrition criteria. Pt is at high risk for developing malnutrition if truly non-compliant w/ home EN regimen; noted refused breakfast this AM. Will monitor for further nutrition intervention needs this admit. Addendum: 05/11/22 at [address] Amended: Links added.
[2022-05-11] MEDS ORDERED: AZIT500T PO (15:18)
[2022-05-11] MEDS ORDERED: ROBDML PO (15:18)
--- NOTE | 2022-05-11 16:52 | NUR ---
pt discharged in stable condition via wheelchair with caregiver. discharge instructions and education reviewed with pt. all questions/concerns addressed. tele, central line, IUC, and IV discontinued.
[2022-05-11] MEDS ORDERED: venlafaxine 37.5mg tablet PO SCH (20:00)
[2022-05-11] MEDS ORDERED: albuterol 2.5 MG/3 ML nebule NEB SCH (20:00)
[2022-05-11] MEDS ORDERED: primidone 250mg tablet PO SCH (20:00)
[2022-05-11] MEDS ORDERED: mirtazapine 15mg tablet PO SCH (21:00)
[2022-05-12] MEDS ORDERED: pantoprazole 40mg Tablet.DR PO SCH (08:00)
[2022-05-12] MEDS ORDERED: sennosides 8.6mg tablet PO SCH (08:00)
== END 2022-05-11 16:35 | disposition home or self-care (01) | DRG 139 ==
LOC: ER 03:36 → ED HOLD 11:49 → EDBEDREQ 15:06 → PCU 3S 15:52 → ED HOLD 15:53 → PCU 3S 16:50
PROVIDERS: ADMIT Internal Medicine; ATTEND Internal Medicine
PROC: BW241ZZ Computerized Tomography (CT Scan) of Chest and Abdomen using Low Osmolar Contrast (ICD-10-PCS; principal; 2022-05-11)
DX: J18.9 Pneumonia, unspecified organism (principal); J96.21 Acute and chronic respiratory failure with hypoxia; R64 Cachexia; I95.9 Hypotension, unspecified; G80.9 Cerebral palsy, unspecified; E11.9 Type 2 diabetes mellitus without complications; Z20.822 Contact with and (suspected) exposure to COVID-19; E87.6 Hypokalemia; F11.20 Opioid dependence, uncomplicated; F32.A Depression, unspecified; F41.9 Anxiety disorder, unspecified; M54.50 Low back pain, unspecified; R00.0 Tachycardia, unspecified; G89.29 Other chronic pain; I10 Essential (primary) hypertension; J44.0 Chronic obstructive pulmonary disease with (acute) lower respiratory infection; J44.1 Chronic obstructive pulmonary disease with (acute) exacerbation; N40.0 Benign prostatic hyperplasia without lower urinary tract symptoms; Z87.442 Personal history of urinary calculi; Z87.891 Personal history of nicotine dependence; Z90.411 Acquired partial absence of pancreas; Z90.49 Acquired absence of other specified parts of digestive tract; Z88.8 Allergy status to other drugs, medicaments and biological substances; Z93.1 Gastrostomy status; Z79.899 Other long term (current) drug therapy; Z68.1 Body mass index [BMI] 19.9 or less, adult
CPT/HCPCS: 36415; 71045; 71260; 80053; 82810; 82948; 83605; 83735; 83880; 85008; 85025; 85610; 87040; 87502; 87503; 87635; 93005; 94640; 94760; 97161; 97530; 99285; A4615; A5200; A6258; A6449; C1751; C9803; G0378; J0456; J0696; J1644; J2060; J2270; J2930; J3010; J3370; J3480; J3490; J7030; J7040; Q9967

== ENCOUNTER 2022-12-26 05:54 | Emergency (ER) | payer MEDICAID ==
[~2022-12-26] VITALS: Ht 170.2 cm; Wt 65.9 kg
[~2022-12-26 05:54] MED LIST changes: -BECL10.6 IH; -CLIN150C8 PO; -DOCU100C40 PO; -DULO-31 PO; -FLO0.4C PO; -GABA-532 PO; -LIDO700A47 TOP; -MEGE400O6 PO; -METF-436 PO; +MIRT-87 PO; -OLAN5TAB75 PO; -OMEP40CA21 PO; -OXYB5TAB16 PO; -OXYC5TAB2 PO; +PANT40GR PO; +PER5325T PO; +PREG300C20 PO; +ROBDML PO; +SENN-263 PO; -SPIIN INH; -TIZA-205 PO; +VENL75TA4 PO
[2022-12-26 05:55] VITALS: TEMP 98.2
[2022-12-26] MEDS ORDERED: dexamethasone sod phosphate 10mg/ml inj IM STA (06:22)
[2022-12-26] MEDS ORDERED: PRED20TA PO (06:34)
--- NOTE | 2022-12-26 06:50 | NUR ---
PER DR BOWENS IT IS OKAY FOR PT TO GET DECADRON INJ EVEN THOUGH HE HOT CORTISONE INJECTED 2-3 DAYS AGO. RN NOTIFIED DR BOWENS THAT EKG WILL BE DONE TO R/O ACS SX D/T PT C/O CHEST TIGHTNESS.
--- NOTE | 2022-12-26 06:56 | NUR ---
PER [facility] TECH DR BOWENS VIEWED EKG AND STATED THAT PT CAN BE DISCHARGED.
--- NOTE | 2022-12-26 06:59 | NUR ---
PER PT CAREGIVER JANINA HE IS UNABLE TO TRANSPORT PT. PT HAS TO BE TRANSPORTED BY [facility]. RN CONFIRMED PT ADDRESS IS [address] [place] [address]. [facility] CONTACTED BY ED JOSE DAVIS. PT IS WHEELCHAIR BOUND AND DOES NOT HAVE HIS WHEELCHAIR WITH HIM.
--- NOTE | 2022-12-26 07:20 | NUR ---
[facility] NOT ANSWERING. PT CAREGIVER WILL ATTEMPT TO FIND OUT ANOTHER TRANSPORT CO THAT CAN BE USED AND WILL NOTIFY RN.
--- NOTE | 2022-12-26 08:08 | NUR ---
pt c/o eye pain and stated he takes percocet 5/325 at home for chronic back pain. rn notified dr estevez and per dr estevez he will not give pt percocet p/t discharge. [facility] WILL BE CALLED BY RYAN GARCIA. IT IS AFTER 0800 NOW.
--- NOTE | 2022-12-26 08:38 | NUR ---
PT CAREGIVER SWITCHED TO ME[facility]. PER [facility] PROVIDERS [facility] WILL PROVIDE TRANSPORT WITH [facility] AND ARE ON THEIR WAY AT THIS TIME. [facility] IS NOT OPEN ON THE WEEKEND.
[2022-12-26 08:39] VITALS: BP 153/85; PULSE 71; RESP 18; O2SAT 96
== END 2022-12-26 09:22 | disposition home or self-care (01) ==
LOC: ER 05:54
DX: T78.40XA Allergy, unspecified, initial encounter (principal); J44.9 Chronic obstructive pulmonary disease, unspecified; I10 Essential (primary) hypertension; E11.9 Type 2 diabetes mellitus without complications; G89.29 Other chronic pain; F41.9 Anxiety disorder, unspecified; F32.9 Major depressive disorder, single episode, unspecified; Z90.49 Acquired absence of other specified parts of digestive tract; Z98.890 Other specified postprocedural states; Z72.89 Other problems related to lifestyle; Z88.1 Allergy status to other antibiotic agents; Z88.8 Allergy status to other drugs, medicaments and biological substances; Z79.899 Other long term (current) drug therapy; X58.XXXA Exposure to other specified factors, initial encounter
CPT/HCPCS: 93005; 96372; 99284; J1100; C1758

== ENCOUNTER 2023-06-02 22:14 | Emergency (ER) | payer MEDICARE, MEDICAID ==
[~2023-06-02] VITALS: Ht 170.2 cm; Wt 61.4 kg
[~2023-06-02 22:14] MED LIST changes: +BENZ-38 PO; -CHOL20003 PO; +CHOL500049 PO; +CIPR-259 PO; +CLOT15CR73 TOP; +FLO0.4C PO; +HYDR-3965 PO; +KEN0.1O TOP; +LORA10TA7 PO; +METF-1203 PO; -MIRT-87 PO; +MORP15TA60 PO; -PER5325T PO; -ROBDML PO; +TIOT18CA3 INH; +TIZA-189 PO; +TRAZ-251 PO; +VENL37.59 PO; -VENL75TA4 PO
[2023-06-02] MEDS ORDERED: famotidine 10mg tablet PO STA (22:18)
[2023-06-02 22:26] VITALS: TEMP 97.7
[2023-06-02] MEDS ORDERED: famotidine 20mg tablet PO STA (22:45)
[2023-06-02] MEDS: famotidine 20mg tablet PO STA (22:54)
[2023-06-02] MEDS: diphenhydrAMINE 25mg capsule PO ONE (22:54)
[2023-06-03] MEDS: ipratropium/albuterol 3ml nebule NEB ONE (00:03)
[2023-06-03 00:04] VITALS: PULSE 70; RESP 16; O2SAT 96
[2023-06-03 00:10] VITALS: PULSE 63; RESP 14
[2023-06-03] MEDS: normal saline 1000ML IV soln IVB STA (01:04)
[2023-06-03] MEDS: methylPREDNISolone sod succ 125mg/2ml vial IV ONE (01:10)
[2023-06-03] MEDS: epiNEPHrine 1 mg/ml inj IM ONE (01:11)
[2023-06-03] MEDS ORDERED: CEPH-585 PO (02:12)
[2023-06-03] MEDS ORDERED: PRED20TA PO (02:12)
[2023-06-03 02:15] VITALS: O2SAT 91
[2023-06-03 02:30] VITALS: BP 169/85; PULSE 78; RESP 14
== END 2023-06-03 06:06 | disposition home or self-care (01) ==
LOC: ER 22:15
DX: R06.02 Shortness of breath (principal); T36.8X5A Adverse effect of other systemic antibiotics, initial encounter; I10 Essential (primary) hypertension; E11.9 Type 2 diabetes mellitus without complications; F41.9 Anxiety disorder, unspecified; F32.A Depression, unspecified; J44.9 Chronic obstructive pulmonary disease, unspecified; Z87.442 Personal history of urinary calculi; Y92.89 Other specified places as the place of occurrence of the external cause
CPT/HCPCS: 94640; 96361; 96372; 96374; 99285; J0171; J2930; J7030; 94760; Q0163

== ENCOUNTER 2023-08-23 10:23 | Inpatient (IN) | payer MEDICARE, MEDICAID ==
[~2023-08-23] VITALS: Ht 170.2 cm; Wt 61.4 kg
[~2023-08-23 10:23] MED LIST changes: -BENZ-38 PO; +CEPH-585 PO; -CIPR-259 PO
[2023-08-23 11:20] LABS: BASOPHILS % (AUTO) 0.1 % (0-1); EOSINOPHILS % (AUTO) 0 % (0-6); HEMATOCRIT 40.6 % (42.0-52.0); HEMOGLOBIN 13.6 g/dl (14.0-17.9); LYMPHOCYTES # (AUTO) 0.6 X10'3 (1.1-4.8); LYMPHOCYTES % (AUTO) 4.7 % (21-51); MEAN CORPUSCULAR HEMOGLOBIN 29.5 PG (27.0-31.0); MEAN CORPUSCULAR HGB CONC 33.5 g/dL (33.0-36.5); MEAN CORPUSCULAR VOLUME 88.2 FL (78-98); MEAN PLATELET VOLUME 10.7 FL (7.4-10.4); MONOCYTES # (AUTO) 1.1 X10'3 (0-0.9); MONOCYTES % (AUTO) 8.1 % (2-12); NEUTROPHILS # (AUTO) 11.6 X10'3 (1.8-7.7); NEUTROPHILS % (AUTO) 87.1 % (42-75); PLATELET COUNT 105 X10'3 (140-440); RED BLOOD COUNT 4.61 X10'6 (4.70-6.10); RED CELL DISTRIBUTION WIDTH 13.5 % (11.5-14.5); WHITE BLOOD COUNT 13.3 X10'3 (4.5-11.0)
[2023-08-23] MEDS: CefTRIAXone 2gm/D5W 50ml BAG 50 ML IV ONE (11:46)
[2023-08-23 11:47] LABS: ANION GAP 8 (8-16); BLOOD UREA NITROGEN 16 MG/DL (7-18); CHLORIDE 100 MMOL/L (99-107); CREATININE 1.23 MG/DL (0.60-1.10); GLUCOSE 145 MG/DL (70-104); POTASSIUM 3.6 MMOL/L (3.5-5.1); PRO BRAIN NATRIURETIC PEPTIDE 1220 PG/ML (0-125); SODIUM 136 MMOL/L (135-145); TOTAL CARBON DIOXIDE 27.6 MMOL/L (24-32); eCRCL 53 ML/MIN; eGFR 59 ML/MIN
[2023-08-23 11:57] LABS: PLATELET ESTIMATE NORMAL; TOTAL CELLS COUNTED 100
[2023-08-23] MEDS: ringers solution, lacted 1,000 ML IV ONE (11:57)
[2023-08-23 12:56] LABS: BILIRUBIN,URINE NEGATIVE (Neg); CLARITY,URINE SLIGHTLY CLOUDY (Clear); COLOR,URINE STRAW (Yellow); GLUCOSE, URINE NEGATIVE (Neg); KETONES,URINE 15 mg/dl (Neg); LEUKOCYTE ESTERASE ,URINE SMALL (Neg); NITRITES, URINE NEGATIVE (Neg); OCCULT BLOOD,URINE NEGATIVE (Neg); PROTEIN,URINE NEGATIVE (Neg); UROBILINOGEN,URINE 0.2 E.U/dL (0.2-1.0)
[2023-08-23 13:04] LABS: UA COLLECTION TYPE VOIDED
[2023-08-23 13:07] LABS: SQUAMOUS EPITHELIAL CELL,UR FEW /LPF (FEW)
[2023-08-23 13:09] LABS: BACTERIA,URINE 2+ /HPF (Neg); RBC,URINE NONE SEEN /HPF (0-2)
[2023-08-23] MEDS: piperacillin/tazo 4.5gm/100ml 100 ML IV ONE (13:12)
[2023-08-23] MEDS ORDERED: iohexol 300mg/ml 100ml inj. ONE (13:34)
[2023-08-23] MEDS ORDERED: REVE175V INH (14:01)
[2023-08-23] MEDS ORDERED: TEST5GEL18 TOP (14:01)
[2023-08-23] MEDS ORDERED: HYDR-3965 PO (14:01)
[2023-08-23] MEDS ORDERED: NALO25TA4 PO (14:01)
[2023-08-23] MEDS ORDERED: SODI4VIA14 NEB (14:01)
[2023-08-23] MEDS ORDERED: ZINC57OI3 TOP (14:01)
[2023-08-23] MEDS ORDERED: PRIM50TA5 PO (14:01)
[2023-08-23] MEDS ORDERED: PROP10TA10 PO (14:01)
[2023-08-23] MEDS ORDERED: VENL150T3 PO (14:01)
[2023-08-23] MEDS ORDERED: TIZA4TAB11 PO (14:01)
[2023-08-23] MEDS ORDERED: PRIM50TA27 PO (14:01)
[2023-08-23] MEDS ORDERED: ARFO15VI NEB (14:01)
[2023-08-23] MEDS ORDERED: ONDA4TAB12 PO (14:01)
[2023-08-23] MEDS ORDERED: NYSPWD TP (14:01)
[2023-08-23] MEDS ORDERED: VENL75TA90 PO (14:01)
[2023-08-23] MEDS ORDERED: ECON30CR5 TOP (14:01)
[2023-08-23] MEDS: MESSAGE TO NURSING PO ONE (14:34)
[2023-08-23] MEDS: morphine 2 MG/ML inj. syringe IV ONE (16:26)
[2023-08-23] MEDS ORDERED: vancomycin/NS 1 GM ADD-VANTAGE 250 ML X 1 DOSE IV ONE (16:30)
[2023-08-23] MEDS ORDERED: magnesium 4gm in 100ml NS 100 ML IV PRN (17:55)
[2023-08-23] MEDS ORDERED: magnesium Cl slow-release 64mg tablet PO PRN (17:55)
[2023-08-23] MEDS ORDERED: potassium Cl 40MEQ/1/2NS 520ml 520 ML IV PRN (17:55)
[2023-08-23] MEDS ORDERED: potassium Cl 20 mEq SR tablet PO PRN ×2 (17:55)
[2023-08-23] MEDS ORDERED: ondansetron/PF 4mg/2ml inj IV PRN (17:55)
[2023-08-23] MEDS ORDERED: magnesium 2GM in 50ml NS 50 ML IV PRN (17:55)
[2023-08-23] MEDS ORDERED: mag hydrox/Alum hydrox/simeth 30ml oral suspension PO PRN (17:55)
[2023-08-23] MEDS ORDERED: acetaminophen 325mg tablet PO PRN (17:55)
[2023-08-23] MEDS: normal saline 1000ml 1,000 ML IV SCH (18:49)
[2023-08-23] MEDS: vancomycin/NS 1 GM ADD-VANTAGE 250 ML IV SCH (18:49)
[2023-08-23] MEDS: morphine 2 MG/ML inj. syringe IV PRN (18:50)
[2023-08-23 19:03] VITALS: PULSE 93; RESP 20; O2SAT 95
[2023-08-23] MEDS: triamcinolone acet 0.1% cream 15gm TP SCH (20:50)
[2023-08-23] MEDS: clotrimazole/betamethasone diproprion. cream 15gm TP SCH (20:55)
[2023-08-23] MEDS: docusate sod 100mg capsule PO SCH (21:05)
[2023-08-23] MEDS: propranolol 10mg tablet PO SCH (21:05)
[2023-08-23] MEDS: busPIRone 5mg tablet PO SCH (21:06)
[2023-08-23] MEDS: traZODone 150mg tablet PO SCH (21:06)
[2023-08-23] MEDS: tizanidine 4mg tablet PO SCH (21:06)
[2023-08-23] MEDS: K and/or MAG REPLACEMENT MC SCH (21:07)
[2023-08-23] MEDS: pregabalin 75mg capsule PO SCH (21:07)
[2023-08-23] MEDS: heparin, porcine 5000 units/ml vial SQ SCH (21:08)
[2023-08-23 21:30] VITALS: RESP 18
[2023-08-23 21:40] VITALS: BP 93/56; PULSE 83; RESP 18; TEMP 99.1; O2SAT 98
[2023-08-23] MEDS: piperacillin/tazo 3.375gm/50ml 50 ML IV SCH (23:00)
[2023-08-24] VITALS (10 sets, daily range): BP systolic 96–104; BP diastolic 56–62; PULSE 66–88; RESP 16–18; TEMP 97.9–98.5; O2SAT 93–99
[2023-08-24] MEDS: ipratropium/albuterol 3ml nebule NEB PRN (05:56)
[2023-08-24] MEDS: TESTOSTERONE TOP SCH (08:00)
[2023-08-24] MEDS: MOVANTIK (NALOXEGOL) 25MG PO SCH (08:00)
[2023-08-24] MEDS: tamsulosin 0.4mg capsule PO SCH (08:21)
[2023-08-24] MEDS: cholecalciferol (vitamin D3) 1,000 unit (25mcg) tablet PO SCH (08:21)
[2023-08-24] MEDS: pantoprazole 40mg Tablet.DR PO SCH (08:22)
[2023-08-24] MEDS: venlafaxine XR 75mg capsule (Q24H) PO SCH (08:22)
[2023-08-24 09:35] LABS: BASOPHILS # (AUTO) 0.1 X10'3 (0-0.2); BASOPHILS % (AUTO) 0.8 % (0-1); EOSINOPHILS # (AUTO) 0.1 X10'3 (0-0.9); EOSINOPHILS % (AUTO) 1.2 % (0-6); HEMATOCRIT 34.9 % (42.0-52.0); HEMOGLOBIN 11.6 g/dl (14.0-17.9); LYMPHOCYTES # (AUTO) 0.4 X10'3 (1.1-4.8); LYMPHOCYTES % (AUTO) 5.5 % (21-51); MEAN CORPUSCULAR HEMOGLOBIN 29.2 PG (27.0-31.0); MEAN CORPUSCULAR HGB CONC 33.2 g/dL (33.0-36.5); MEAN CORPUSCULAR VOLUME 87.9 FL (78-98); MEAN PLATELET VOLUME 10.2 FL (7.4-10.4); MONOCYTES # (AUTO) 0.5 X10'3 (0-0.9); MONOCYTES % (AUTO) 6.2 % (2-12); NEUTROPHILS # (AUTO) 6.7 X10'3 (1.8-7.7); NEUTROPHILS % (AUTO) 86.3 % (42-75); PLATELET COUNT 85 X10'3 (140-440); RED BLOOD COUNT 3.97 X10'6 (4.70-6.10); RED CELL DISTRIBUTION WIDTH 13.4 % (11.5-14.5); WHITE BLOOD COUNT 7.8 X10'3 (4.5-11.0)
[2023-08-24 09:47] LABS: ALANINE AMINOTRANSFERASE 10 U/L (12-78); ALBUMIN 2.4 G/DL (3.4-5.0); ALBUMIN/GLOBULIN RATIO 0.6 (1.1-1.5); ALKALINE PHOSPHATASE 48 IU/L (46-116); ANION GAP 8 (8-16); ASPARTATE AMINO TRANSFERASE 12 U/L (10-37); BILIRUBIN,TOTAL 0.6 MG/DL (0.1-1.0); BLOOD UREA NITROGEN 13 MG/DL (7-18); BUN/CREATININE RATIO 14.4 (10.0-20.0); CALCIUM 8.1 MG/DL (8.5-10.1); CHLORIDE 106 MMOL/L (99-107); GLUCOSE 105 MG/DL (70-104); MAGNESIUM 1.7 MG/DL (1.5-2.4); POTASSIUM 3.1 MMOL/L (3.5-5.1); SODIUM 142 MMOL/L (135-145); TOTAL CARBON DIOXIDE 27.7 MMOL/L (24-32); TOTAL PROTEIN 6.3 G/DL (6.4-8.2); eCRCL 72 ML/MIN; eGFR 85 ML/MIN
[2023-08-24] MEDS ORDERED: magnesium hydroxide 30ml (MOM) UD suspension PO PRN (12:10)
[2023-08-24] MEDS: morphine ER 15mg tablet PO SCH (12:56)
[2023-08-24] MEDS: magnesium hydroxide 30ml (MOM) UD suspension PO PRN (12:56)
[2023-08-24] MEDS: POTASSIUM BICARB 20meq eff tab 20 MEQ TABLET.EFF PO PRN (14:42)
[2023-08-24] MEDS: HYDROcodone/acetaminophen 5mg/325mg tablet PO PRN (14:47)
[2023-08-24] MEDS ORDERED: vancomycin/NS 1 GM ADD-VANTAGE 250 ML IV SCH (16:00)
[2023-08-24] MEDS: pneumococcal 23-VAL P-sac vacc 25 mcg/0.5ml vial IMVAC ONE (17:35)
[2023-08-24] MEDS: methylPREDNISolone sod succ 125mg/2ml vial IV SCH (19:58)
[2023-08-25] VITALS (7 sets, daily range): BP systolic 101–122; BP diastolic 48–66; PULSE 54–87; RESP 15–20; TEMP 97.1–98; O2SAT 94–98
[2023-08-25 08:11] LABS: EOSINOPHILS % (AUTO) 0.1 % (0-6); HEMATOCRIT 36.2 % (42.0-52.0); LYMPHOCYTES # (AUTO) 0.3 X10'3 (1.1-4.8); MONOCYTES # (AUTO) 0.2 X10'3 (0-0.9); RED BLOOD COUNT 4.08 X10'6 (4.70-6.10)
[2023-08-25 08:13] LABS: BASOPHILS % (AUTO) 0.2 % (0-1); HEMOGLOBIN 12.1 g/dl (14.0-17.9); LYMPHOCYTES % (AUTO) 7.6 % (21-51); MEAN CORPUSCULAR HEMOGLOBIN 29.7 PG (27.0-31.0); MEAN CORPUSCULAR HGB CONC 33.5 g/dL (33.0-36.5); MEAN CORPUSCULAR VOLUME 88.7 FL (78-98); MEAN PLATELET VOLUME 10.7 FL (7.4-10.4); NEUTROPHILS # (AUTO) 3.7 X10'3 (1.8-7.7); NEUTROPHILS % (AUTO) 88.1 % (42-75); PLATELET COUNT 82 X10'3 (140-440); RED CELL DISTRIBUTION WIDTH 13.4 % (11.5-14.5); WHITE BLOOD COUNT 4.2 X10'3 (4.5-11.0)
[2023-08-25 08:45] LABS: PLATELET ESTIMATE DECREASED
[2023-08-25 08:46] LABS: ANISOCYTOSIS FEW; BURR CELLS 1+
[2023-08-25 08:50] LABS: ALANINE AMINOTRANSFERASE 8 U/L (12-78); ALBUMIN 2.2 G/DL (3.4-5.0); ALBUMIN/GLOBULIN RATIO 0.5 (1.1-1.5); ALKALINE PHOSPHATASE 45 IU/L (46-116); ANION GAP 7 (8-16); ASPARTATE AMINO TRANSFERASE 14 U/L (10-37); BILIRUBIN,TOTAL 0.3 MG/DL (0.1-1.0); BLOOD UREA NITROGEN 12 MG/DL (7-18); BUN/CREATININE RATIO 16.4 (10.0-20.0); CALCIUM 8.1 MG/DL (8.5-10.1); CHLORIDE 109 MMOL/L (99-107); CREATININE 0.73 MG/DL (0.60-1.10); GLUCOSE 234 MG/DL (70-104); MAGNESIUM 1.9 MG/DL (1.5-2.4); POTASSIUM 4.3 MMOL/L (3.5-5.1); SODIUM 140 MMOL/L (135-145); TOTAL CARBON DIOXIDE 24.2 MMOL/L (24-32); TOTAL PROTEIN 6.3 G/DL (6.4-8.2); eCRCL 88 ML/MIN; eGFR > 90 ML/MIN
[2023-08-25] MEDS: bisacodyl 10mg suppository rectal RC SCH (13:40)
[2023-08-25] MEDS ORDERED: LACT1CAP26 PO (14:41)
[2023-08-25] MEDS ORDERED: PRED10TA23 PO (14:41)
[2023-08-25] MEDS ORDERED: AMOX-580 PO (14:41)
[2023-08-25] MEDS ORDERED: MAGN400O6 PO (16:08)
[2023-08-25] MEDS ORDERED: guaiFENesin ER 600mg tablet PO SCH (20:00)
[2023-08-26] MEDS ORDERED: VANCOMYCIN LEVEL IV ONE (18:30)
== END 2023-08-25 16:10 | disposition home or self-care (01) | DRG 871 ==
LOC: ER 10:24 → ED HOLD 18:01 → EDBEDREQ 20:41 → ORTHO 4S 21:25
PROVIDERS: ADMIT Family Medicine; ATTEND Family Medicine
PROC: BW251ZZ Computerized Tomography (CT Scan) of Chest, Abdomen and Pelvis using Low Osmolar Contrast (ICD-10-PCS; principal; 2023-08-23)
DX: A41.9 Sepsis, unspecified organism (principal); J69.0 Pneumonitis due to inhalation of food and vomit; J96.01 Acute respiratory failure with hypoxia; N17.0 Acute kidney failure with tubular necrosis; N39.0 Urinary tract infection, site not specified; G80.9 Cerebral palsy, unspecified; J44.9 Chronic obstructive pulmonary disease, unspecified; I10 Essential (primary) hypertension; N40.0 Benign prostatic hyperplasia without lower urinary tract symptoms; E11.9 Type 2 diabetes mellitus without complications; K59.00 Constipation, unspecified; E87.6 Hypokalemia; G89.4 Chronic pain syndrome; M54.9 Dorsalgia, unspecified; F32.A Depression, unspecified; F41.9 Anxiety disorder, unspecified; Z90.49 Acquired absence of other specified parts of digestive tract; Z88.1 Allergy status to other antibiotic agents; Z88.8 Allergy status to other drugs, medicaments and biological substances; Z79.899 Other long term (current) drug therapy; Z79.84 Long term (current) use of oral hypoglycemic drugs; Z87.442 Personal history of urinary calculi; Z87.891 Personal history of nicotine dependence
CPT/HCPCS: 36415; 71045; 71260; 74177; 80048; 80053; 81001; 83605; 83735; 83880; 84145; 84484; 85007; 85008; 85025; 87040; 87077; 87081; 87088; 87186; 90732; 92508; 92616; 93005; 94640; 94760; 97161; 97530; 97535; 99285; A6213; A6449; A6590; G0378; J0696; J1644; J2270; J2543; J2930; J3370; J3490; J7030; J7040; J7120; Q9967

== ENCOUNTER 2023-08-28 21:14 | Inpatient (IN) | payer MEDICARE, MEDICAID ==
[~2023-08-28] VITALS: Ht 170.2 cm; Wt 60.7 kg
[~2023-08-28 21:14] MED LIST changes: +AMOX-580 PO; +ARFO15VI NEB; -CEPH-585 PO; +ECON30CR5 TOP; +LACT1CAP26 PO; +MAGN400O6 PO; +NALO25TA4 PO; +NYSPWD TP; +ONDA4TAB12 PO; +PRED10TA23 PO; +PRIM50TA27 PO; +PRIM50TA5 PO; +PROP10TA10 PO; +REVE175V INH; -SENN-263 PO; +SODI4VIA14 NEB; -TEST200V33 SUBCUT; +TEST5GEL18 TOP; -TIOT18CA3 INH; -TIZA-189 PO; +TIZA4TAB11 PO; +VENL150T3 PO; -VENL37.59 PO; +VENL75TA90 PO; +ZINC57OI3 TOP
[2023-08-28 22:25] LABS: HEMOGLOBIN 11.8 g/dl (14.0-17.9); NEUTROPHILS # (AUTO) 3.5 X10'3 (1.8-7.7)
[2023-08-28 22:27] LABS: ALBUMIN 2.8 G/DL (3.4-5.0); ANION GAP 5 (8-16); BASOPHILS % (AUTO) 0.4 % (0-1); BLOOD UREA NITROGEN 7 MG/DL (7-18); BUN/CREATININE RATIO 10.1 (10.0-20.0); CALCIUM 8.4 MG/DL (8.5-10.1); CHLORIDE 104 MMOL/L (99-107); CREATININE 0.69 MG/DL (0.60-1.10); EOSINOPHILS # (AUTO) 0.1 X10'3 (0-0.9); EOSINOPHILS % (AUTO) 2.7 % (0-6); GLUCOSE 143 MG/DL (70-104); HEMATOCRIT 34.8 % (42.0-52.0); LYMPHOCYTES # (AUTO) 0.5 X10'3 (1.1-4.8); LYMPHOCYTES % (AUTO) 10.3 % (21-51); MEAN CORPUSCULAR HEMOGLOBIN 29.9 PG (27.0-31.0); MEAN CORPUSCULAR VOLUME 88.1 FL (78-98); MEAN PLATELET VOLUME 10.1 FL (7.4-10.4); MONOCYTES # (AUTO) 0.5 X10'3 (0-0.9); MONOCYTES % (AUTO) 10.5 % (2-12); NEUTROPHILS % (AUTO) 76.1 % (42-75); PLATELET COUNT 87 X10'3 (140-440); POTASSIUM 3.4 MMOL/L (3.5-5.1); RED BLOOD COUNT 3.94 X10'6 (4.70-6.10); RED CELL DISTRIBUTION WIDTH 13.5 % (11.5-14.5); SODIUM 140 MMOL/L (135-145); TOTAL CARBON DIOXIDE 31.5 MMOL/L (24-32); WHITE BLOOD COUNT 4.6 X10'3 (4.5-11.0); eCRCL 40 ML/MIN; eGFR > 90 ML/MIN
[2023-08-28 22:52] LABS: LARGE PLATELETS FEW; PLATELET ESTIMATE DECREASED
[2023-08-28] MEDS: normal saline 1000ML IV soln IVB ONE (23:35)
[2023-08-28] MEDS: methylPREDNISolone sod succ 125mg/2ml vial IV ONE (23:46)
[2023-08-28] MEDS: HYDROcodone/acetaminophen 10/325mg tab PO ONE (23:46)
[2023-08-29] VITALS (12 sets, daily range): BP systolic 124; BP diastolic 99; PULSE 71–107; RESP 18–22; TEMP 98.1; O2SAT 93–99
[2023-08-29] MEDS: ipratropium/albuterol 3ml nebule NEB ONE (00:01)
[2023-08-29] MEDS: piperacillin/tazo 4.5gm/100ml 100 ML IV SCH (00:51)
[2023-08-29] MEDS ORDERED: ondansetron/PF 4mg/2ml inj IV PRN (02:15)
[2023-08-29] MEDS ORDERED: potassium Cl 20 mEq SR tablet PO PRN (02:15)
[2023-08-29] MEDS ORDERED: magnesium Cl slow-release 64mg tablet PO PRN (02:15)
[2023-08-29] MEDS ORDERED: potassium Cl 40MEQ/1/2NS 520ml 520 ML IV PRN (02:15)
[2023-08-29] MEDS ORDERED: acetaminophen 325mg tablet PO PRN (02:15)
[2023-08-29] MEDS ORDERED: magnesium 2GM in 50ml NS 50 ML IV PRN (02:15)
[2023-08-29] MEDS ORDERED: magnesium 4gm in 100ml NS 100 ML IV PRN (02:15)
[2023-08-29 03:25] LABS: MAGNESIUM 1.7 MG/DL (1.5-2.4); POTASSIUM 3.7 MMOL/L (3.5-5.1)
[2023-08-29] MEDS: HYDROcodone/acetaminophen 5mg/325mg tablet PO PRN (05:32)
[2023-08-29] MEDS: K and/or MAG REPLACEMENT MC SCH (07:40)
[2023-08-29] MEDS: CefTRIAXone/D5W-Rocephin 1gm 50 ML IV SCH (07:53)
[2023-08-29] MEDS: morphine 4 MG/ML inj SYRINge IV ONE (08:07)
[2023-08-29] MEDS: azithromycin/NS 500mg/250ml 250 ML IV SCH (08:37)
[2023-08-29] MEDS: ipratropium/albuterol 3ml nebule NEB SCH (12:08)
[2023-08-29] MEDS: methylPREDNISolone sod succ/PF 40mg inj. IV SCH (17:47)
[2023-08-30] VITALS (15 sets, daily range): BP systolic 13–170; BP diastolic 72–92; PULSE 78–98; RESP 16–22; TEMP 97.5–98.7; O2SAT 91–96
[2023-08-30] MEDS: morphine ER 15mg tablet PO PRN
[2023-08-30 06:36] LABS: BASOPHILS % (AUTO) 0.4 % (0-1); EOSINOPHILS % (AUTO) 0.1 % (0-6); HEMATOCRIT 35.7 % (42.0-52.0); HEMOGLOBIN 11.9 g/dl (14.0-17.9); LYMPHOCYTES # (AUTO) 0.6 X10'3 (1.1-4.8); MEAN CORPUSCULAR HEMOGLOBIN 29.2 PG (27.0-31.0); MEAN CORPUSCULAR HGB CONC 33.2 g/dL (33.0-36.5); MEAN CORPUSCULAR VOLUME 88.2 FL (78-98); MEAN PLATELET VOLUME 9.8 FL (7.4-10.4); MONOCYTES # (AUTO) 0.6 X10'3 (0-0.9); MONOCYTES % (AUTO) 20.5 % (2-12); NEUTROPHILS # (AUTO) 1.7 X10'3 (1.8-7.7); PLATELET COUNT 110 X10'3 (140-440); RED BLOOD COUNT 4.05 X10'6 (4.70-6.10); RED CELL DISTRIBUTION WIDTH 13.3 % (11.5-14.5); WHITE BLOOD COUNT 2.9 X10'3 (4.5-11.0)
[2023-08-30 06:47] LABS: ANION GAP 7 (8-16); BLOOD UREA NITROGEN 10 MG/DL (7-18); BUN/CREATININE RATIO 12.8 (10.0-20.0); CALCIUM 8.6 MG/DL (8.5-10.1); CHLORIDE 105 MMOL/L (99-107); CREATININE 0.78 MG/DL (0.60-1.10); GLUCOSE 174 MG/DL (70-104); POTASSIUM 3.3 MMOL/L (3.5-5.1); SODIUM 141 MMOL/L (135-145); TOTAL CARBON DIOXIDE 29.2 MMOL/L (24-32); eCRCL 81 ML/MIN; eGFR > 90 ML/MIN
[2023-08-30] MEDS: potassium Cl 20 mEq SR tablet PO PRN (06:56)
[2023-08-30] MEDS: NALOXEGOL OXALATE PO SCH (08:00)
[2023-08-30 08:28] LABS: GIANT PLATELET FEW; LARGE PLATELETS FEW; PLATELET ESTIMATE DECREASED; TOTAL CELLS COUNTED 100
[2023-08-30] MEDS: LORazepam 1 MG tablet PO ONE (10:57)
[2023-08-30] MEDS ORDERED: ondansetron 4mg rapidly disintigrating tab PO PRN (11:50)
[2023-08-30] MEDS ORDERED: primidone 50mg tablet PO SCH ×4 (11:50→21:00)
[2023-08-30] MEDS ORDERED: tamsulosin 0.4mg capsule PO SCH (11:50)
[2023-08-30] MEDS ORDERED: HYDROcodone/acetaminophen 5mg/325mg tablet PO PRN (11:50)
[2023-08-30] MEDS: busPIRone 5mg tablet PO SCH (13:37)
[2023-08-30] MEDS: pregabalin 75mg capsule PO SCH (14:48)
[2023-08-30] MEDS: primidone 50mg tablet PO SCH ×2 (14:48→21:23)
[2023-08-30] MEDS: traZODone 50mg tablet PO SCH (21:20)
[2023-08-30] MEDS: tizanidine 4mg tablet PO SCH (21:20)
[2023-08-30] MEDS: propranolol 10mg tablet PO SCH (21:20)
[2023-08-30] MEDS: triamcinolone acet 0.1% cream 15gm TP SCH (21:24)
[2023-08-30] MEDS: clotrimazole/betamethasone diproprion. cream 15gm TP SCH (21:25)
[2023-08-31] VITALS (21 sets, daily range): BP systolic 113–139; BP diastolic 57–83; PULSE 7–102; RESP 14–20; TEMP 97.2–98.8; O2SAT 88–97
[2023-08-31 06:32] LABS: BASOPHILS % (AUTO) 0.5 % (0-1); EOSINOPHILS % (AUTO) 0.6 % (0-6); HEMATOCRIT 40.1 % (42.0-52.0); HEMOGLOBIN 13.3 g/dl (14.0-17.9); LYMPHOCYTES # (AUTO) 1.2 X10'3 (1.1-4.8); LYMPHOCYTES % (AUTO) 21.5 % (21-51); MEAN CORPUSCULAR HEMOGLOBIN 29.3 PG (27.0-31.0); MEAN CORPUSCULAR HGB CONC 33.1 g/dL (33.0-36.5); MEAN CORPUSCULAR VOLUME 88.6 FL (78-98); MEAN PLATELET VOLUME 10.2 FL (7.4-10.4); MONOCYTES # (AUTO) 0.7 X10'3 (0-0.9); MONOCYTES % (AUTO) 12.6 % (2-12); NEUTROPHILS # (AUTO) 3.5 X10'3 (1.8-7.7); NEUTROPHILS % (AUTO) 64.8 % (42-75); PLATELET COUNT 158 X10'3 (140-440); RED BLOOD COUNT 4.53 X10'6 (4.70-6.10); RED CELL DISTRIBUTION WIDTH 13.7 % (11.5-14.5); WHITE BLOOD COUNT 5.4 X10'3 (4.5-11.0)
[2023-08-31 06:40] LABS: ALBUMIN 3.1 G/DL (3.4-5.0); ANION GAP 7 (8-16); BLOOD UREA NITROGEN 12 MG/DL (7-18); BUN/CREATININE RATIO 16.2 (10.0-20.0); CALCIUM 9.1 MG/DL (8.5-10.1); CHLORIDE 107 MMOL/L (99-107); CREATININE 0.74 MG/DL (0.60-1.10); GLUCOSE 164 MG/DL (70-104); MAGNESIUM 2.2 MG/DL (1.5-2.4); POTASSIUM 4.5 MMOL/L (3.5-5.1); SODIUM 141 MMOL/L (135-145); TOTAL CARBON DIOXIDE 26.8 MMOL/L (24-32); eCRCL 85 ML/MIN; eGFR > 90 ML/MIN
[2023-08-31] MEDS: pantoprazole 40mg Tablet.DR PO SCH (07:21)
[2023-08-31] MEDS: venlafaxine XR 75mg capsule (Q24H) PO SCH (07:21)
[2023-08-31] MEDS: cholecalciferol (vitamin D3) 1,000 unit (25mcg) tablet PO SCH (07:22)
[2023-08-31] MEDS: tamsulosin 0.4mg capsule PO SCH (07:22)
[2023-08-31] MEDS: REVEFENACIN PO SCH (08:00)
[2023-08-31] MEDS: testosterone 5gm gel packet TD SCH (08:00)
[2023-08-31] MEDS: zinc oxide ointment 30gm tube TP SCH (08:00)
[2023-08-31] MEDS ORDERED: non-formulary drug (Venlafaxine HCl (Venlafaxine HCl ER) 1 TAB) PO SCH (08:00)
[2023-08-31] MEDS: benzonatate 100mg capsule PO PRN (11:48)
[2023-08-31] MEDS: methylPREDNISolone sod succ 125mg/2ml vial IV ONE (12:43)
[2023-08-31] MEDS: methylPREDNISolone sod succ 125mg/2ml vial IV SCH (21:08)
[2023-08-31] MEDS ORDERED: ipratropium/albuterol 3ml nebule NEB SCH (23:00)
[2023-09-01] VITALS (21 sets, daily range): BP systolic 95–138; BP diastolic 57–75; PULSE 54–102; RESP 14–22; TEMP 97.6–98; O2SAT 90–100
[2023-09-01 06:53] LABS: BASOPHILS % (AUTO) 0.2 % (0-1); HEMOGLOBIN 12.5 g/dl (14.0-17.9); MONOCYTES # (AUTO) 0.4 X10'3 (0-0.9)
[2023-09-01 06:56] LABS: EOSINOPHILS % (AUTO) 0 % (0-6); HEMATOCRIT 37.8 % (42.0-52.0); LYMPHOCYTES # (AUTO) 0.8 X10'3 (1.1-4.8); LYMPHOCYTES % (AUTO) 20.3 % (21-51); MEAN CORPUSCULAR HEMOGLOBIN 29.4 PG (27.0-31.0); MEAN CORPUSCULAR HGB CONC 33.2 g/dL (33.0-36.5); MEAN CORPUSCULAR VOLUME 88.5 FL (78-98); MEAN PLATELET VOLUME 9.7 FL (7.4-10.4); MONOCYTES % (AUTO) 10.4 % (2-12); NEUTROPHILS # (AUTO) 2.8 X10'3 (1.8-7.7); NEUTROPHILS % (AUTO) 69.1 % (42-75); PLATELET COUNT 141 X10'3 (140-440); RED BLOOD COUNT 4.27 X10'6 (4.70-6.10); RED CELL DISTRIBUTION WIDTH 13.7 % (11.5-14.5); WHITE BLOOD COUNT 4.1 X10'3 (4.5-11.0)
[2023-09-01 07:12] LABS: ALBUMIN 2.8 G/DL (3.4-5.0); ANION GAP 5 (8-16); BLOOD UREA NITROGEN 17 MG/DL (7-18); BUN/CREATININE RATIO 24.6 (10.0-20.0); CALCIUM 8.6 MG/DL (8.5-10.1); CHLORIDE 102 MMOL/L (99-107); CREATININE 0.69 MG/DL (0.60-1.10); GLUCOSE 255 MG/DL (70-104); POTASSIUM 4.2 MMOL/L (3.5-5.1); SODIUM 135 MMOL/L (135-145); TOTAL CARBON DIOXIDE 28.3 MMOL/L (24-32); eCRCL 92 ML/MIN; eGFR > 90 ML/MIN
[2023-09-01] MEDS: albuterol 2.5 MG/3 ML nebule NEB SCH (07:35)
[2023-09-01 07:40] LABS: LARGE PLATELETS FEW
[2023-09-01] MEDS: azithromycin 250mg tablet PO SCH (07:54)
[2023-09-01 10:09] LABS: PLATELET ESTIMATE NORMAL
[2023-09-01] MEDS: magnesium hydroxide 30ml (MOM) UD suspension PO PRN (20:37)
[2023-09-01] MEDS: docusate sod 100mg capsule PO SCH (20:37)
[2023-09-01] MEDS ORDERED: dextrose 50%-water 50ml dispensing syringe IV PRN ×2 (22:05)
[2023-09-01] MEDS ORDERED: glucagon, human recombinant 1mg kit SUBCUT PRN (22:05)
[2023-09-01] MEDS ORDERED: DEXTROSE 15 GM of carb/4 tabs (each vial/BOTTLE has 4 tablets) PO PRN ×2 (22:05)
[2023-09-01 22:39] LABS: HEMOGLOBIN A1C 6.3 % (4.5-6.2)
[2023-09-01] MEDS: INSULIN LISPRO 100 UNIT/ML INSULN.PEN MULTI-DOSE SQ SCH (23:52)
[2023-09-01] MEDS: insulin glargine (Lantus) pen - multi-dose SQ SCH (23:53)
[2023-09-02] VITALS (11 sets, daily range): BP systolic 104–131; BP diastolic 60–70; PULSE 54–73; RESP 16–20; TEMP 97.5–98; O2SAT 92–98
[2023-09-02 07:15] LABS: BASOPHILS % (AUTO) 0.1 % (0-1); EOSINOPHILS % (AUTO) 0.1 % (0-6); HEMOGLOBIN 12.8 g/dl (14.0-17.9); LYMPHOCYTES # (AUTO) 1.1 X10'3 (1.1-4.8); WHITE BLOOD COUNT 5.5 X10'3 (4.5-11.0)
[2023-09-02 07:17] LABS: HEMATOCRIT 38.6 % (42.0-52.0); LYMPHOCYTES % (AUTO) 20.5 % (21-51); MEAN CORPUSCULAR HEMOGLOBIN 29.2 PG (27.0-31.0); MEAN CORPUSCULAR HGB CONC 33.2 g/dL (33.0-36.5); MONOCYTES # (AUTO) 0.4 X10'3 (0-0.9); NEUTROPHILS % (AUTO) 71.3 % (42-75); PLATELET COUNT 155 X10'3 (140-440); RED BLOOD COUNT 4.38 X10'6 (4.70-6.10); RED CELL DISTRIBUTION WIDTH 13.8 % (11.5-14.5)
[2023-09-02] MEDS ORDERED: INSULIN LISPRO 100 UNIT/ML INSULN.PEN MULTI-DOSE SQ SCH ×3 (07:30→17:30)
[2023-09-02 07:34] LABS: ALBUMIN 2.8 G/DL (3.4-5.0); ANION GAP 5 (8-16); BLOOD UREA NITROGEN 25 MG/DL (7-18); BUN/CREATININE RATIO 34.2 (10.0-20.0); CALCIUM 8.2 MG/DL (8.5-10.1); CHLORIDE 104 MMOL/L (99-107); CREATININE 0.73 MG/DL (0.60-1.10); GLUCOSE 266 MG/DL (70-104); MAGNESIUM 2.5 MG/DL (1.5-2.4); POTASSIUM 4.1 MMOL/L (3.5-5.1); SODIUM 138 MMOL/L (135-145); eCRCL 87 ML/MIN; eGFR > 90 ML/MIN
[2023-09-02] MEDS ORDERED: LEVO-65 PO (12:33)
[2023-09-02] MEDS ORDERED: AZIT500T9 PO (14:21)
[2023-09-02] MEDS ORDERED: insulin glargine (Lantus) pen - multi-dose SQ SCH (21:00)
== END 2023-09-02 14:20 | disposition home health service (06) | DRG 177 ==
LOC: ER 21:15 → ED HOLD 08-29 02:15 → PCU 3S 08-29 21:50
PROVIDERS: ADMIT Internal Medicine; ATTEND Internal Medicine
PROC: 05HY33Z Insertion of Infusion Device into Upper Vein, Percutaneous Approach (ICD-10-PCS; principal; 2023-08-29)
DX: J69.0 Pneumonitis due to inhalation of food and vomit (principal); J96.01 Acute respiratory failure with hypoxia; J44.1 Chronic obstructive pulmonary disease with (acute) exacerbation; J98.11 Atelectasis; J44.0 Chronic obstructive pulmonary disease with (acute) lower respiratory infection; G80.9 Cerebral palsy, unspecified; K21.9 Gastro-esophageal reflux disease without esophagitis; Z20.822 Contact with and (suspected) exposure to COVID-19; N40.0 Benign prostatic hyperplasia without lower urinary tract symptoms; G89.29 Other chronic pain; E11.9 Type 2 diabetes mellitus without complications; F32.A Depression, unspecified; F41.9 Anxiety disorder, unspecified; I10 Essential (primary) hypertension; J98.01 Acute bronchospasm; Z88.1 Allergy status to other antibiotic agents; Z88.8 Allergy status to other drugs, medicaments and biological substances; Z90.49 Acquired absence of other specified parts of digestive tract; Z87.442 Personal history of urinary calculi; Z80.8 Family history of malignant neoplasm of other organs or systems; Z87.01 Personal history of pneumonia (recurrent); Z79.899 Other long term (current) drug therapy
CPT/HCPCS: 36415; 71045; 71046; 80048; 82948; 83036; 83605; 83735; 84132; 84484; 85007; 85008; 85025; 87040; 87081; 87811; 92508; 92616; 93005; 94640; 94760; 96365; 96375; 97116; 97161; 97530; 99285; A6213; G0378; J0456; J0696; J1815; J2270; J2543; J2920; J2930; J7030; J7040

== ENCOUNTER 2023-09-21 22:49 | Emergency (ER) | payer MEDICARE, MEDICAID ==
[~2023-09-21] VITALS: Ht 160 cm; Wt 58.0 kg
[~2023-09-21 22:49] MED LIST changes: -AMOX-580 PO; +AZIT500T9 PO; -LORA10TA7 PO; -MAGN400O6 PO; -PRED10TA23 PO; -SODI4VIA14 NEB
[2023-09-22] MEDS: morphine 4 MG/ML inj SYRINge IM ONE (01:14)
[2023-09-22] MEDS: acetaminophen 325mg tablet PO ONE (01:14)
[2023-09-22] MEDS: ketorolac trometh. 30mg/ml inj. IM ONE (01:14)
[2023-09-22 01:36] VITALS: BP 142/86; PULSE 74; RESP 18; TEMP 98; O2SAT 96
== END 2023-09-22 01:37 | disposition home or self-care (01) ==
LOC: ER 22:50
DX: M54.9 Dorsalgia, unspecified (principal); G89.29 Other chronic pain; Z88.8 Allergy status to other drugs, medicaments and biological substances; I10 Essential (primary) hypertension; J45.909 Unspecified asthma, uncomplicated; E11.9 Type 2 diabetes mellitus without complications; F41.9 Anxiety disorder, unspecified; F32.A Depression, unspecified; Z90.49 Acquired absence of other specified parts of digestive tract; Z79.84 Long term (current) use of oral hypoglycemic drugs; Z79.899 Other long term (current) drug therapy
CPT/HCPCS: 96372; 99284; J1885; J2270

== ENCOUNTER 2023-09-22 10:22 | Emergency (ER) | payer MEDICARE, MEDICAID ==
[~2023-09-22] VITALS: Ht 167.6 cm; Wt 55.0 kg
[2023-09-22 13:09] LABS: BASOPHILS % (AUTO) 0.7 % (0-1); EOSINOPHILS # (AUTO) 0.1 X10'3 (0-0.9); EOSINOPHILS % (AUTO) 2.5 % (0-6); HEMATOCRIT 42.8 % (42.0-52.0); HEMOGLOBIN 14.4 g/dl (14.0-17.9); LYMPHOCYTES # (AUTO) 0.7 X10'3 (1.1-4.8); LYMPHOCYTES % (AUTO) 15.6 % (21-51); MEAN CORPUSCULAR HEMOGLOBIN 29.1 PG (27.0-31.0); MEAN CORPUSCULAR HGB CONC 33.7 g/dL (33.0-36.5); MEAN CORPUSCULAR VOLUME 86.3 FL (78-98); MEAN PLATELET VOLUME 10.2 FL (7.4-10.4); MONOCYTES # (AUTO) 0.3 X10'3 (0-0.9); MONOCYTES % (AUTO) 6.1 % (2-12); NEUTROPHILS # (AUTO) 3.4 X10'3 (1.8-7.7); NEUTROPHILS % (AUTO) 75.1 % (42-75); PLATELET COUNT 131 X10'3 (140-440); RED BLOOD COUNT 4.96 X10'6 (4.70-6.10); RED CELL DISTRIBUTION WIDTH 13.7 % (11.5-14.5); WHITE BLOOD COUNT 4.5 X10'3 (4.5-11.0)
[2023-09-22 13:40] LABS: ALBUMIN 3.6 G/DL (3.4-5.0); ANION GAP 10 (8-16); BLOOD UREA NITROGEN 11 MG/DL (7-18); BUN/CREATININE RATIO 15.7 (10.0-20.0); CALCIUM 10.8 MG/DL (8.5-10.1); CHLORIDE 102 MMOL/L (99-107); GLUCOSE 133 MG/DL (70-104); POTASSIUM 4.2 MMOL/L (3.5-5.1); SODIUM 140 MMOL/L (135-145); TOTAL CARBON DIOXIDE 28.3 MMOL/L (24-32); eCRCL 82 ML/MIN; eGFR > 90 ML/MIN
[2023-09-22] MEDS: HYDROcodone/acetaminophen 5mg/325mg tablet PO ONE (15:24)
[2023-09-22] MEDS: HYDROmorphone 1 mg/ml syringe IM ONE (15:25)
[2023-09-22 15:45] VITALS: BP 149/82; PULSE 87; TEMP 99.1; O2SAT 96
[2023-09-22 15:46] VITALS: RESP 16
== END 2023-09-22 15:46 ==
LOC: ER 10:23
DX: G89.29 Other chronic pain (principal); M54.50 Low back pain, unspecified; G80.9 Cerebral palsy, unspecified; N39.0 Urinary tract infection, site not specified; I10 Essential (primary) hypertension; J44.9 Chronic obstructive pulmonary disease, unspecified; E11.9 Type 2 diabetes mellitus without complications; F41.9 Anxiety disorder, unspecified; F32.A Depression, unspecified; Z90.49 Acquired absence of other specified parts of digestive tract; Z85.9 Personal history of malignant neoplasm, unspecified; Z79.84 Long term (current) use of oral hypoglycemic drugs; Z88.8 Allergy status to other drugs, medicaments and biological substances
CPT/HCPCS: 36415; 80048; 83605; 84145; 84484; 85025; 87040; 93005; 96372; 99284; J1170

== ENCOUNTER 2023-10-25 10:36 | Emergency (ER) | payer MEDICARE, MEDICAID ==
[~2023-10-25] VITALS: Ht 170.2 cm; Wt 58.2 kg
[~2023-10-25 10:36] MED LIST changes: -AZIT500T9 PO; -BUSP10TA10 PO; -CHOL500049 PO; +ONDA-243 PO; -ONDA4TAB12 PO; -PANT40GR PO
[2023-10-25] MEDS: CefTRIAXone/D5W-Rocephin 1gm 50 ML IV ONE (11:21)
[2023-10-25] MEDS: normal saline 1000ml 1,000 ML IV ONE (11:27)
[2023-10-25 11:37] LABS: EOSINOPHILS % (AUTO) 0.1 % (0-6); HEMOGLOBIN 12.2 g/dl (14.0-17.9); NEUTROPHILS # (AUTO) 3.9 X10'3 (1.8-7.7); WHITE BLOOD COUNT 4.7 X10'3 (4.5-11.0)
[2023-10-25 11:38] LABS: BASOPHILS % (AUTO) 0.5 % (0-1); HEMATOCRIT 37.1 % (42.0-52.0); LYMPHOCYTES # (AUTO) 0.4 X10'3 (1.1-4.8); LYMPHOCYTES % (AUTO) 7.9 % (21-51); MEAN CORPUSCULAR HEMOGLOBIN 28.5 PG (27.0-31.0); MEAN CORPUSCULAR VOLUME 86.4 FL (78-98); MEAN PLATELET VOLUME 10.5 FL (7.4-10.4); MONOCYTES # (AUTO) 0.4 X10'3 (0-0.9); MONOCYTES % (AUTO) 9.3 % (2-12); NEUTROPHILS % (AUTO) 82.2 % (42-75); PLATELET COUNT 72 X10'3 (140-440); RED BLOOD COUNT 4.29 X10'6 (4.70-6.10); RED CELL DISTRIBUTION WIDTH 14.6 % (11.5-14.5)
[2023-10-25 11:52] LABS: ALANINE AMINOTRANSFERASE 28 U/L (12-78); ALBUMIN 2.7 G/DL (3.4-5.0); ALBUMIN/GLOBULIN RATIO 0.7 (1.1-1.5); ALKALINE PHOSPHATASE 55 IU/L (46-116); ANION GAP 4 (8-16); ASPARTATE AMINO TRANSFERASE 27 U/L (10-37); BILIRUBIN,TOTAL 0.4 MG/DL (0.1-1.0); BLOOD UREA NITROGEN 16 MG/DL (7-18); BUN/CREATININE RATIO 18.4 (10.0-20.0); CHLORIDE 106 MMOL/L (99-107); CREATININE 0.87 MG/DL (0.60-1.10); GLUCOSE 132 MG/DL (70-104); POTASSIUM 3.9 MMOL/L (3.5-5.1); SODIUM 137 MMOL/L (135-145); TOTAL CARBON DIOXIDE 26.9 MMOL/L (24-32); TOTAL PROTEIN 6.5 G/DL (6.4-8.2); eCRCL 70 ML/MIN; eGFR 88 ML/MIN
[2023-10-25 13:07] LABS: BILIRUBIN,URINE NEGATIVE (Neg); CLARITY,URINE CLEAR (Clear); COLOR,URINE YELLOW (Yellow); GLUCOSE, URINE NEGATIVE (Neg); KETONES,URINE NEGATIVE (Neg); LEUKOCYTE ESTERASE ,URINE TRACE (Neg); NITRITES, URINE NEGATIVE (Neg); OCCULT BLOOD,URINE NEGATIVE (Neg); PROTEIN,URINE NEGATIVE (Neg); UROBILINOGEN,URINE 0.2 E.U/dL (0.2-1.0)
[2023-10-25 13:11] LABS: URINE AMPHETAMINE SCREEN NEGATIVE (Neg); URINE BARBITUATE SCREEN POSITIVE (Neg); URINE BENZODIAZEPINES SCREEN NEGATIVE (Neg); URINE CANNABINOID SCREEN NEGATIVE (Neg); URINE COCAINE SCREEN NEGATIVE (Neg); URINE METHADONE SCREEN NEGATIVE (Neg); URINE OPIATE SCREEN POSITIVE (Neg); URINE PHENCYCLIDINE SCREEN NEGATIVE (Neg)
[2023-10-25 13:15] LABS: UA COLLECTION TYPE VOIDED
[2023-10-25 13:36] LABS: BACTERIA,URINE 2+ /HPF (Neg); RBC,URINE NONE SEEN /HPF (0-2); SQUAMOUS EPITHELIAL CELL,UR FEW /LPF (FEW)
[2023-10-25] MEDS ORDERED: CEPH-585 PO (14:34)
[2023-10-25 15:44] VITALS: BP 125/76; PULSE 78; RESP 16; TEMP 98.2; O2SAT 98
== END 2023-10-25 17:20 | disposition home health service (06) ==
LOC: ER 10:36
DX: N39.0 Urinary tract infection, site not specified (principal); I10 Essential (primary) hypertension; J44.9 Chronic obstructive pulmonary disease, unspecified; E11.9 Type 2 diabetes mellitus without complications; Z88.1 Allergy status to other antibiotic agents; Z79.899 Other long term (current) drug therapy; Z79.2 Long term (current) use of antibiotics; Z98.890 Other specified postprocedural states; Z90.49 Acquired absence of other specified parts of digestive tract
CPT/HCPCS: 36415; 80053; 80305; 81001; 83605; 85025; 87088; 96365; 99285; J0696; J7030